=== PATIENT | female | born 1960 | race Caucasian/White ===

== ENCOUNTER 2016-11-20 11:57 | Emergency (ER) | payer OTHER ==
[~2016-11-20] VITALS: Ht 152.4 cm; Wt 93.9 kg
[~2016-11-20 11:57] MED LIST: OXYC7.5T65 PO; SULF800T23 PO
[2016-11-20 12:05] VITALS: Ht 152.4 cm; Wt 93.9 kg
[2016-11-20 12:59] LABS: BASO % 0.1 %; BASO ABS # 0.01 K/uL (0-0.2); COMPLETE YES; EOS % 1.6 %; HEMATOCRIT 42.5 % (37-47); IG% 0.3 %; LYMPH % 28.8 %; LYMPH ABS # 2.52 K/uL (1.2-3.4); MEAN CELL VOLUME 86.6 fL (80-100); MEAN CORPUSCULAR HGB CONC 35.8 g/dl (32-36); MEAN PLATELET VOLUME 10.1 fL (7.4-10.4); MONO % 8.1 %; NEUT % 61.1 %; PLATELET COUNT 191 K/uL (130-400); RED BLOOD COUNT 4.91 M/uL (4.2-5.4); WHITE BLOOD COUNT 8.76 K/uL (4.8-10.8)
[2016-11-20 13:07] LABS: BUN/CREATININE RATIO 17.5 (10-20); CALCIUM 9.2 mg/dl (8.5-10.1); CREATININE 0.96 mg/dl (0.60-1.20); POTASSIUM 3.8 mmol/L (3.5-5.1)
[2016-11-20] MEDS ORDERED: SODIUM CHLORIDE 0.9% 1000ML 1,000 ML IV STA ×2 (13:10)
[2016-11-20] MEDS ORDERED: ONDANSETRON INJ 2 MG/ML 2 ML VIAL IV STA (13:10)
--- NOTE | 2016-11-20 13:52 | DIAGNOSTIC IMAGING REPORT ---
PA CHEST WITH ABDOMINAL SERIES CLINICAL HISTORY: Diarrhea. Nausea and vomiting. FINDINGS: A PA chest radiograph is compared to study dated 09/05/2016. The examination is mildly degraded by apical lordotic positioning. The heart appears mildly enlarged and there is atherosclerotic calcification of the thoracic aorta. The pulmonary vasculature is noncongested. Chronic interstitial thickening is unchanged. No airspace consolidation, large pleural effusion, or pneumothorax is seen. The skeletal structures are osteopenic. Degenerative change is noted throughout the thoracic spine. Supine and erect abdominal radiograph are correlated with abdominal CT dated 12/16/2015. The examination is degraded by large body habitus. There is a nonobstructed abdominal bowel gas pattern. No evidence of intraperitoneal free air is seen. There is a 2.5 cm ovoid foreign body projecting over the sacrum. This is of indeterminant etiology and significance. The patient's known right renal calculi seen by CT are not visualized radiographically. Atherosclerotic calcification is noted in the abdominal aorta. There is lumbosacral spondylosis with postoperative change/bone grafting seen in the lower lumbar spine. The bony pelvis appears intact. IMPRESSION: 1. Mild cardiac enlargement. There is no acute cardiopulmonary abnormality. 2. Nonobstructed abdominal bowel gas pattern. 3. A 2.5 cm ovoid radiodense foreign body projects over the sacrum. This is of indeterminate etiology and significance, and may represent a foreign body ingestion. Clinical correlation will be required. Electronically signed by: Abraham Marquez M.D. 11/20/2016 1:51 PM
[2016-11-20 14:51] LABS: MANUAL MICROSCOPIC REQUIRED? NO; REVIEW REQ? NO; URINE APPEARANCE CLEAR (CLEAR); URINE BILIRUBIN NEG (NEG); URINE COLOR YELLOW; URINE NITRITE NEG (NEG); UROBILINOGEN NEG (NEG); ZZUR CULT IF INDIC CLEAN CATCH NO
[2016-11-20] MEDS ORDERED: METRONIDAZOLE 250 MG TAB PO STA (15:11)
[2016-11-20] MEDS ORDERED: METR-163 PO (15:24)
[2016-11-20] MEDS ORDERED: SACC250C PO (15:27)
--- NOTE | 2016-11-20 15:28 | EMERGENCY ROOM VISIT NOTE ---
History First contact with patient: 12:58 Chief Complaint: DIARRHEA Stated Complaint: DIARRHEA,DEHYDRATION Nursing Triage Summary: pt c/o diarrhea nd vomiting for 8 days . spoke with pcp on sunday told to come to ed if not better. History of Present Illness Patient is a 56-year-old white female who presents the emergency department for evaluation of diarrhea 8 days. She states that her symptoms started on the . She reports multiple episodes of loose, watery bowel movements, and vomited a few times that day as well. She has had persistent diarrhea since. She has only had a few episodes of vomiting since the initial onset. She feels very bloated and gassy and has a lot of rumbling in her stomach. Her abdomen does not really hurt however. She has cramps when she has to have a bowel movement, but these pass after defecating. She reports anywhere between 6 and 8 loose, watery bowel movements per day. She has not had a fever. She has a history of kidney stones and recently had surgery. She had been on antibiotics for her kidney stone issues and procedures in September. She denies any dysuria , frequency or urgency, but is passing clots secondary to the stone. She's never had a colonoscopy. She denies a history of diverticulitis or diverticulosis. No history of colitis. She is not aware of any sick contacts. There are multiple people who had eaten the same foods as her and who are not ill. She hasn't not travel outside the country recently. She has municipal water as a source at home. She has tried Pepto-Bismol and Imodium for her symptoms without relief. Review of Systems Review of systems as per HPI. All other systems reviewed were negative. 10 systems reviewed. Past Medical/Surgical History Medical Problems: (1) Calculus Of Kidney (2) Essential (Primary) Hypertension (3) Pure Hypercholesterolemia, Unspecified (4) Type 2 Diabetes Mellitus Without Complications Surgical Problems: (1) H/O section (2) History of back surgery (3) History of cystoscopy Electronic medical records are reviewed and summarized as above/below. See Problem List. Social History Smoking Status: Current Every Day Smoker Housing Status: lives with family Current/Historical Medications Scheduled Aspirin (Aspirin), 81 MG PO QAM Atorvastatin (Lipitor), 10 MG PO Q2D Citalopram (Citalopram Hydrobromide), 1 TAB PO QAM Clopidogrel Bisulfate (Plavix), 75 MG PO QAM Gabapentin (Neurontin), 300 MG PO BID Glipizide (Glipizide Er), 1 TAB PO QAM Isosorbide Mononitrate Ext Rel (Imdur Ext Rel), 60 MG PO BID Losartan Potassium (Cozaar), 25 MG PO QAM Metformin Hcl (Glucophage), 500 MG PO DINNER Metoprolol Tartrate (Lopressor) (Lopressor), 100 MG PO QAM Metoprolol Tartrate (Lopressor) (Lopressor), 50 MG PO DINNER Metronidazole (Flagyl), 500 MG PO TID Nitroglycerin (Nitrostat), 0.4 MG UT PRN Potassium Chloride (Micro-K Ext Rel), 10 MEQ PO QAM Saccharomyces Boulardii (Florastor), 2 CAP PO BID Scheduled PRN Oxycodone/Acetaminophen 7.5MG/325MG (Percocet 7.5MG/325MG), 1 TAB PO QID PRN for Pain Allergies Coded Allergies: Amlodipine (Unverified Allergy, Unknown, UNKNOWN REACTION, 09/21/16) PER RECORDS Niacin (Unverified Allergy, Unknown, UNKNOWN REACTION, 09/21/16) PER RECORDS Physical Exam Vital Signs Date Time Temp Pulse Resp B/P Pulse Ox O2 Delivery O2 Flow Rate FiO2 11/20/16 15:44 36.7 67 20 133/80 98 11/20/16 15:42 67 20 133/80 98 Room Air 11/20/16 14:40 67 20 136/80 97 Room Air 11/20/16 14:11 69 20 135/81 97 Room Air 11/20/16 12:05 36.7 69 20 147/86 97 Room Air Physical Exam CONSTITUTIONAL: Patient is an obese 56-year-old white female who was awake and alert and in no acute distress. Her vital signs are stable. EYES: Pupils equal, round, reactive to light and accommodation. EOMs intact without nystagmus. Sclera are anicteric. ENT: Tympanic membranes intact, with normal landmarks. External canals are clear. Oral and nasopharynx are clear. Mucous membranes are moist, no lesions , tongue and gums appear normal. NECK: No bruits auscultated. Supple without lymphadenopathy. No thyromegaly. No meningeal signs. Full active range of motion without discomfort. CARDIOVASCULAR: Regular rate and rhythm, with normal S1 and S2, no murmur or gallop or rub is heard. No carotid bruits auscultated. No JVD. Peripheral pulses easy to palpable. RESPIRATORY: Breath sounds equal and clear to auscultation without wheezes, rales, or rhonchi heard. Full and equal chest expansion without accessory muscle use or retractions. GI: Bowel sounds are present. Well-healed surgical scars are noted. Abdomen is soft obese, nontender and nondistended. No guarding, rebound or rigidity. MUSCULOSKELETAL: Full range of motion of extremities x 4 with good strength. No cyanosis, edema, joint tenderness or swelling. No deformity. INTEGUMENTARY: No lesions or rash, normal skin turgor. NEUROLOGICAL: Alert, oriented, and cooperative. Cranial nerves, sensation and strength grossly intact. Pupils round, equal, and react to light, EOMs are full. LYMPH: No lymphadenopathy. Medical Decision & Procedures ER Provider Diagnostic Interpretation: PA CHEST WITH ABDOMINAL SERIES CLINICAL HISTORY: Diarrhea. Nausea and vomiting. FINDINGS: A PA chest radiograph is compared to study dated 09/05/2016. The examination is mildly degraded by apical lordotic positioning. The heart appears mildly enlarged and there is atherosclerotic calcification of the thoracic aorta. The pulmonary vasculature is noncongested. Chronic interstitial thickening is unchanged. No airspace consolidation, large pleural effusion, or pneumothorax is seen. The skeletal structures are osteopenic. Degenerative change is noted throughout the thoracic spine. Supine and erect abdominal radiograph are correlated with abdominal CT dated 12/16/2015. The examination is degraded by large body habitus. There is a nonobstructed abdominal bowel gas pattern. No evidence of intraperitoneal free air is seen. There is a 2.5 cm ovoid foreign body projecting over the sacrum. This is of indeterminant etiology and significance. The patient's known right renal calculi seen by CT are not visualized radiographically. Atherosclerotic calcification is noted in the abdominal aorta. There is lumbosacral spondylosis with postoperative change/bone grafting seen in the lower lumbar spine. The bony pelvis appears intact. IMPRESSION: 1. Mild cardiac enlargement. There is no acute cardiopulmonary abnormality. 2. Nonobstructed abdominal bowel gas pattern. 3. A 2.5 cm ovoid radiodense foreign body projects over the sacrum. This is of indeterminate etiology and significance, and may represent a foreign body ingestion. Clinical correlation will be required. Laboratory Results 11/20/16 12:37 Red Blood Count 4.91, Mean Corpuscular Volume 86.6, Mean Corpuscular Hemoglobin 31.0, Mean Corpuscular Hemoglobin Concent 35.8, Mean Platelet Volume 10.1, Neutrophils (%) (Auto) 61.1, Lymphocytes (%) (Auto) 28.8, Monocytes (%) (Auto) 8.1, Eosinophils (%) (Auto) 1.6, Basophils (%) (Auto) 0.1, Neutrophils # (Auto) 5.35, Lymphocytes # (Auto) 2.52, Monocytes # (Auto) 0.71, Eosinophils # (Auto) 0.14, Basophils # (Auto) 0.01 11/20/16 12:37 Test 11/20/16 12:37 11/20/16 14:30 White Blood Count 8.76 K/uL (4.8-10.8) Red Blood Count 4.91 M/uL (4.2-5.4) Hemoglobin 15.2 g/dL (12.0-16.0) Hematocrit 42.5 % (37-47) Mean Corpuscular Volume 86.6 fL (80-100) Mean Corpuscular Hemoglobin 31.0 pg (25-34) Mean Corpuscular Hemoglobin Concent 35.8 g/dl (32-36) Platelet Count 191 K/uL (130-400) Mean Platelet Volume 10.1 fL (7.4-10.4) Neutrophils (%) (Auto) 61.1 % Lymphocytes (%) (Auto) 28.8 % Monocytes (%) (Auto) 8.1 % Eosinophils (%) (Auto) 1.6 % Basophils (%) (Auto) 0.1 % Neutrophils # (Auto) 5.35 K/uL (1.4-6.5) Lymphocytes # (Auto) 2.52 K/uL (1.2-3.4) Monocytes # (Auto) 0.71 K/uL (0.11-0.59) Eosinophils # (Auto) 0.14 K/uL (0-0.5) Basophils # (Auto) 0.01 K/uL (0-0.2) RDW Standard Deviation 43.7 fL (36.4-46.3) RDW Coefficient of Variation 13.8 % (11.5-14.5) Immature Granulocyte % (Auto) 0.3 % Immature Granulocyte # (Auto) 0.03 K/uL (0.00-0.02) Anion Gap 9.0 mmol/L (3-11) Est Creatinine Clear Calc Drug Dose 65.4 ml/min Estimated GFR () 75.6 Estimated GFR (Non- 65.2 BUN/Creatinine Ratio 17.5 (10-20) Calcium Level 9.2 mg/dl (8.5-10.1) Total Bilirubin 0.3 mg/dl (0.2-1) Aspartate Amino Transf (AST/SGOT) 10 U/L (15-37) Alanine Aminotransferase (ALT/SGPT) 28 U/L (12-78) Alkaline Phosphatase 87 U/L (45-117) Total Protein 7.7 gm/dl (6.4-8.2) Albumin 3.8 gm/dl (3.4-5.0) Globulin 3.9 gm/dl (2.5-4.0) Albumin/Globulin Ratio 1.0 (0.9-2) Lipase 112 U/L (73-393) Urine Color YELLOW Urine Appearance CLEAR (CLEAR) Urine pH 5.0 (4.5-7.5) Urine Specific [place] 1.010 (1.000-1.030) Urine Protein NEG (NEG) Urine Glucose (UA) NEG (NEG) Urine Ketones NEG (NEG) Urine Occult Blood NEG (NEG) Urine Nitrite NEG (NEG) Urine Bilirubin NEG (NEG) Urine Urobilinogen NEG (NEG) Urine Leukocyte Esterase NEG (NEG) Date/Time Source Procedure Growth Status 11/20/16 13:30 Stool C.difficile Toxin B Gene (PCR) - Final Positive for C. difficile toxin B gene Complete Medications Administered Medications (Trade) Dose Ordered Sig/Ti Route Start Time Stop Time Status Last Admin Dose Admin Sodium Chloride 1,000 ml @ 999 mls/hr Q1H1M STAT IV 11/20/16 13:10 11/20/16 14:10 DC 11/20/16 13:31 999 MLS/HR Sodium Chloride (Nss 1000ml) 1,000 ml @ 250 mls/hr Q4H STAT IV 11/20/16 13:10 11/20/16 17:09 DC 11/20/16 13:32 250 MLS/HR Ondansetron HCl (Zofran Inj) 4 mg NOW STAT IV 11/20/16 13:10 11/20/16 13:16 DC 11/20/16 13:32 4 MG Metronidazole (Flagyl Tab) 500 mg NOW STAT PO 11/20/16 15:11 11/20/16 15:12 DC 11/20/16 15:33 500 MG ED Course The patient was seen and evaluated as above. Her old records were reviewed. IV access was obtained and she was hydrated with normal saline solution. She is medicated with Zofran for nausea. CBC, CMP and lipase were performed. She was able to give a stool sample which was Hemoccult negative. It was sent for culture and C. difficile. Acute abdominal series was obtained and was unremarkable. Laboratory studies did not reveal any leukocytosis, anemia, electrolytes or liver function abnormalities. Lipase was not elevated. Urinalysis was completely clear. Her stool was positive for C. difficile. Patient was reviewed with attending physician. She is medicated with metronidazole 500 mg orally. She'll be placed on oral metronidazole for the C. difficile colitis. She was instructed on close follow-up with her primary care physician for further care and management. She was educated on the worrisome signs or symptoms for which she should return to the emergency department. Her stool culture is pending. Differential diagnoses entertained included infectious versus inflammatory colitis, gastroenteritis, food borne illness, bowel obstruction, diverticulitis , perforation, abscess, among others. Medical Decision See ED Course. Impression Primary Impression: C. difficile diarrhea Departure Information Prescriptions Saccharomyces Boulardii (FLORASTOR) 250 Mg Cap 2 CAP PO BID, #60 CAP 2 Refills Prov: Deborah aCr PA 11/20/16 Metronidazole (Flagyl) 500 Mg Tab 500 MG PO TID, #42 TAB Prov: Deborah Car PA 11/20/16 Referrals Prieto Barrera PA-C (PCP) Patient Instructions A Signature Page, [facility] Additional Instructions Metronidazole(Flagyl) 500mg: Take one pill 3 daily for 14 days for your bowel infection. DO NOT drink alcohol or take alcohol containing products with this medication. Any medication can cause an allergic reaction, stop the pills immediately and return to the ER for rash, hives, breathing difficulties, or swelling. Florastor : 2 capsules twice daily. Ibuprofen(Motrin, Advil) may be used for fever or pain. Use 600mg every six hours as needed. Take with food. Avoid using more than 2400mg in a 24 hour period. Do not use 2400mg per day for more than three consecutive days without physician direction. Prolonged inappropriate use can lead to stomach upset or ulcers. This is available over the counter and typically comes in 200mg tablets. (AND/OR) Acetaminophen(Tylenol) may be used for fever or pain. Use 1000mg every eight hours as needed. Avoid using more than 3000mg in a 24 hour period. This is available over the counter. Read all the package inserts or medication information paperwork provided. If you have any questions or concerns call your primary provider, pharmacist or the ER for assistance. Rest and drink plenty of fluids as tolerated. Slow sips of water or sports drinks are recommended instead of large amounts all at once. Continue current medications. Once your stomach is settled start with a clear liquid diet (jello, soup broth, etc.) and then advance as tolerated. You should avoid full, heavy meals for about 24 hrs from the time your symptoms resolved. Return to the ER immediately for worsening or persistent abdominal pain, vomiting, fevers, chest pains, difficulty breathing, black or bloody stools, worsening of your condition, or as needed. Follow up with your primary physician in 2-3 days for a recheck of your current condition.
[2016-11-20 15:44] VITALS: BP 133/80; PULSE 67; TEMP 36.7; O2SAT 98
--- NOTE | 2016-11-20 20:04 | EMERGENCY ROOM VISIT NOTE ---
ED Visit Note First contact with patient: 12:58 I have personally evaluated this patient examined her and reviewed the pertinent labs and data. I have discussed the case with Niki Car, the physician zoning assistant and agree with the plan. Please refer to the PA note This patient comes in after having diarrhea and nausea. Her abdominal exam is benign and nontender. She was hydrated with IV normal saline and she is feeling better. Her workup was positive for C. difficile. We are going to treat her with Flagyl. She does not drink alcohol. I encouraged a follow-up follow-up with her regular doctor return to the ER if: Worsening of symptoms, not tolerating fluids, any new problems or concerns. She was happy with plan and discharged to home.
[2017-04-05] MEDS ORDERED: GLIP-197 PO (13:34)
[2017-04-05] MEDS ORDERED: ASPI-461 PO (13:34)
[2017-04-05] MEDS ORDERED: GABA-113 PO (13:34)
[2017-04-05] MEDS ORDERED: CITA40TA4 PO (13:34)
[2017-04-05] MEDS ORDERED: CLOP1TAB5 PO (13:34)
[2017-04-05] MEDS ORDERED: GLC/500 PO (13:34)
[2017-04-05] MEDS ORDERED: LOSA1TAB PO (13:34)
[2017-04-05] MEDS ORDERED: ISOS60TA25 PO (13:34)
[2017-04-05] MEDS ORDERED: ATOR10TA82 PO (13:34)
[2017-04-05] MEDS ORDERED: METO100T14 PO ×2 (13:34)
[2017-04-05] MEDS ORDERED: POTA10CA28 PO (13:34)
[2017-04-05] MEDS ORDERED: NTRGSL/4 UT (13:40)
== END 2016-11-20 15:44 | disposition home or self-care (01) ==
LOC: C.EDB 11:59 → C.EDC 15:44
DX: A04.7 Enterocolitis due to Clostridium difficile (principal); Z79.82 Long term (current) use of aspirin; Z79.899 Other long term (current) drug therapy; Z79.02 Long term (current) use of antithrombotics/antiplatelets; E11.9 Type 2 diabetes mellitus without complications; E78.00 Pure hypercholesterolemia, unspecified

== ENCOUNTER → 2016-11-29 | Outpatient (CLI) | payer OTHER ==
[~2016-11-29] MED LIST changes: +ASPI-461 PO; +ATOR10TA88 PO; +CITA40TA4 PO; +CLOP1TAB5 PO; +CYCL10TA6 PO; +GABA-113 PO; +GLC/500 PO; +GLIP-197 PO; +ISOS60TA25 PO; +LOSA1TAB PO; +METO100T14 PO; +METR-163 PO; +NTRGSL/4 UT; +POTA10CA28 PO; +SACC250C PO; -SULF800T23 PO; +[UNRECOGNIZED DRUG - REMARK] PO
--- NOTE | 2016-11-29 09:39 | DIAGNOSTIC IMAGING REPORT ---
ULTRASOUND KIDNEYS AND BLADDER CLINICAL HISTORY: Flank pain. COMPARISON STUDY: Abdominal MRI dated 08/18/2016. Abdominal radiographs dated 11/20/2016 TECHNIQUE: Real-time, grayscale, and color flow sonography of the kidneys and bladder is performed. Images are reviewed in the transverse and longitudinal planes. FINDINGS: Kidneys: The kidneys demonstrate cortical atrophy. The right kidney measures 11.2 x 4.3 x 4.4 cm and the left kidney measures 13.6 x 6.3 x 5.2 cm. There is no hydronephrosis. No shadowing renal calculi are identified. There is no sonographic evidence of contour deforming renal mass lesion. No perinephric fluid is identified. Bladder: The bladder is normal in appearance. Only a right ureteral jet was seen. Upper abdomen: The liver is enlarged and steatotic. IMPRESSION: 1. The kidneys demonstrate cortical atrophy and are without hydronephrosis. 2. The bladder was normal as visualized. 3. Hepatomegaly and hepatic steatosis. Electronically signed by: Abraham Marquez M.D. 11/29/2016 9:37 AM Dictated Date/Time: 11/29/2016 9:34 AM
== END | disposition home or self-care (01) ==
LOC: C.ULTR 09:07
PROVIDERS: ATTEND Urology
DX: R10.9 Unspecified abdominal pain (principal); N26.1 Atrophy of kidney (terminal); R16.0 Hepatomegaly, not elsewhere classified; K76.0 Fatty (change of) liver, not elsewhere classified; N39.0 Urinary tract infection, site not specified

== ENCOUNTER → 2016-11-29 | Outpatient (CLI) | payer OTHER | END | disposition home or self-care (01) | LOC: C.LABSPEC 17:40 | PROVIDERS: ATTEND Urology | DX: N39.0 Urinary tract infection, site not specified (principal) ==

== ENCOUNTER → 2017-02-26 | Outpatient (CLI) | payer OTHER ==
[2017-02-13 13:24] LABS: BLOOD UREA NITROGEN 13 mg/dl (7-18); BUN/CREATININE RATIO 14.2 (10-20)
[~2017-02-26] MED LIST changes: +ATOR10TA82 PO; -ATOR10TA88 PO; +OPTIRAY 320 IV PRN
--- NOTE | 2017-02-26 16:33 | DIAGNOSTIC IMAGING REPORT ---
CT OF THE ABDOMEN AND PELVIS WITH AND WITHOUT CONTRAST HEMATURIA PROTOCOL CLINICAL HISTORY: Nephrolithiasis. Bilateral flank pain. Right renal filling defects. Left adrenal mass. COMPARISON STUDY: CT of the abdomen and pelvis August 03, 2016, MRI of the abdomen August 18, 2016 and renal ultrasound November 29, 2016. TECHNIQUE: Unenhanced and split bolus phase imaging of the abdomen and pelvis was performed. Injection 119 cc Optiray [address] DOSE: 2223.39 mGy.cm FINDINGS: A 3.2 cm left adrenal nodule measures near water attenuation. This is unchanged since prior exams. This is consistent with an adenoma. No ureteral calculi are present. Note is made of a 5 mm calculus within lower pole of the right kidney. Mild right perinephric infiltration is noted. This is diminished since the prior CT of August 03, 2016. There is mild dilatation of the right renal pelvis which is improved since prior exams. There is no padmini hydronephrosis. There is diffuse urothelial thickening of the right collecting system and renal pelvis. This was present on prior MRI of August 18, 2016. Note is also made of a 5 mm filling defect within an upper pole calyx within the right kidney. The extent of filling defects is diminished since IVP of August 18, 2016. No bladder lesion is identified although the nondependent aspect of the bladder is unopacified. There is fatty infiltration of the liver. No hepatic lesions are present. There is a gallstone within the gallbladder. Postsurgical findings within the spine are noted. The spleen, right adrenal gland and pancreas are unremarkable. There are no solid renal lesions. There is no evidence for bowel obstruction. There is no lymphadenopathy. The appendix is normal. IMPRESSION: 1. 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 2. 5 mm right renal calculus. No ureteral calculi. 3. Diffuse urothelial thickening of the right collecting system and renal pelvis which was present on MRI of August 18, 2016. This remains nonspecific and could reflect an infectious process or the residua from prior process. A neoplastic process could appear similar although is considered somewhat less likely. A short-term follow-up hematuria protocol in 6 months is recommended. The findings could also be correlated with urine cytology and urinalysis. 4. 5 mm filling defect within an upper pole calyx of the right kidney. This could reflect blood clot, sloughed papilla or a mass. This should be assessed on subsequent exam. The extent of filling defects is significantly diminished from IVP of August 18, 2016. Electronically signed by: Kevan Waldrop M.D. 02/26/2017 4:31 PM Dictated Date/Time: 02/26/2017 11:05 AM
== END | disposition home or self-care (01) ==
LOC: C.CTS 10:21
PROVIDERS: ATTEND Urology
DX: R10.9 Unspecified abdominal pain (principal); N13.30 Unspecified hydronephrosis; R93.429 Abnormal radiologic findings on diagnostic imaging of unspecified kidney; N20.0 Calculus of kidney; E27.9 Disorder of adrenal gland, unspecified

== ENCOUNTER → 2017-02-28 | Outpatient (CLI) | payer OTHER ==
[~2017-02-28] MED LIST changes: -OPTIRAY 320 IV PRN
[2017-02-28 12:39] LABS: BLOOD UREA NITROGEN 16 mg/dl (7-18); BUN/CREATININE RATIO 17.8 (10-20); CREATININE 0.91 mg/dl (0.60-1.20)
== END | disposition home or self-care (01) ==
LOC: C.LABPBG 10:00
PROVIDERS: ATTEND Physician Assistant Medical
DX: N20.0 Calculus of kidney (principal)

== ENCOUNTER → 2017-03-07 | Outpatient (CLI) | payer OTHER | END | disposition home or self-care (01) | LOC: C.LABPBG 13:59 | PROVIDERS: ATTEND Physician Assistant Medical | DX: Z13.89 Encounter for screening for other disorder (principal) ==

== ENCOUNTER → 2017-03-22 | Outpatient (CLI) | payer OTHER ==
--- NOTE | 2017-03-26 14:25 | MAMMOGRAPHY REPORT ---
BILATERAL DIGITAL SCREENING MAMMOGRAM WITH CAD: 03/22/2017 CLINICAL HISTORY: Routine screening. Patient has no complaints. TECHNIQUE: Bilateral CC and MLO views were obtained. Current study was also evaluated with a [employer] er Aided Detection (CAD) system. [facility] dated 10/23/2008. BREAST COMPOSITION: There are scattered areas of fibroglandular density in both breasts. FINDINGS: There are benign-appearing calcifications in the left breast. No new suspicious mass, arc hitectural distortion or cluster of microcalcifications is seen. IMPRESSION: ACR BI-RADS CATEGORY 1: NEGATIVE There is no mammographic evidence of malignancy. A 1 year screening mammogram is recommended. The p atient will receive written notification of the results. Approximately 10% of breast cancers are not detected with mammography. A negative mammographic repor t should not delay biopsy if a clinically suggestive mass is present. Angie Hopkins M.D. ay/:03/26/2017 13:24:59 Cardiac Catheterization Technologist: Sherine BARLOW(R)(M), [facility] letter sent: Normal 1/2 BI-RADS Code: ACR BI-RADS Category 1: Negative
== END | disposition home or self-care (01) ==
LOC: C.MAMM 11:45
PROVIDERS: ATTEND Physician Assistant Medical
DX: Z12.31 Encounter for screening mammogram for malignant neoplasm of breast (principal)

== ENCOUNTER 2017-04-05 18:17 | Emergency (ER) | payer OTHER ==
[~2017-04-05 18:17] MED LIST changes: -CYCL10TA6 PO; -[UNRECOGNIZED DRUG - REMARK] PO
[2017-04-05 18:27] VITALS: TEMP 36.7; Ht 162.6 cm
[2017-04-05] MEDS ORDERED: CYCLOBENZAPRINE HCL 10 MG TAB PO STA (18:51)
[2017-04-05] MEDS ORDERED: KETOROLAC TROMETHAMINE 60 MG/2 ML VIAL IM STA (18:51)
--- NOTE | 2017-04-05 18:54 | EMERGENCY ROOM VISIT NOTE ---
History Report prepared by Kurt: Ana Hayes Under the Supervision of: Dr. Nadira Green D.O. First contact with patient: 18:32 Chief Complaint: BACK PAIN Stated Complaint: STABBING BACK PAIN History of Present Illness The patient is a 56 year old female who presents to the Emergency Room with complaints of intermittent left sided back pain beginning 2 weeks prior to arrival. The patient describes the pain as a stabbing pain. She notes that pain is when she goes to stand up from a sitting position. The patient 2 weeks ago was picking up a brick when the pain first began. She states that nothing brings on the pain or ends the pain, it spontaneously occurs. The patient was gardening today when the pain began and has not subsided since. She notes a history of back surgery and has a broken screw that is by her sciatic nerve that causes a chronic burning sensation in her buttock and down her leg. This pain is worsening the burning sensation. The patient has been taking Gabapentin twice a day which is for her chronic back pain. She denies weakness or numbness in her feet. The patient has been experiencing kidney stones lately. 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 Review of Systems See HPI for pertinent positives & negatives. A total of 10 systems reviewed and were otherwise negative. Past Medical & Surgical Medical Problems: (1) Calculus Of Kidney (2) Essential (Primary) Hypertension (3) Pure Hypercholesterolemia, Unspecified (4) Type 2 Diabetes Mellitus Without Complications Surgical Problems: (1) H/O section (2) History of back surgery (3) History of cystoscopy Family History Cancer Diabetes mellitus Heart disease Hypertension Kidney disease Kidney stones Lung disease Social History Smoking Status: Current Every Day Smoker Alcohol Use: none Housing Status: lives with family Occupation Status: unemployed Current/Historical Medications Scheduled Aspirin (Aspirin), 81 MG PO QAM Atorvastatin (Lipitor), 10 MG PO DAILY Citalopram (Citalopram Hydrobromide), 1 TAB PO QAM Clopidogrel Bisulfate (Plavix), 75 MG PO QAM Cyclobenzaprine Hcl (Flexeril), 10 MG PO TID Gabapentin (Neurontin), 300 MG PO BID Glipizide (Glipizide Er), 1 TAB PO QAM Isosorbide Mononitrate Ext Rel (Imdur Ext Rel), 60 MG PO BID Losartan Potassium (Cozaar), 25 MG PO QAM Metformin Hcl (Glucophage), 1,000 MG PO DINNER Metoprolol Tartrate (Lopressor) (Lopressor), 100 MG PO QAM Metoprolol Tartrate (Lopressor) (Lopressor), 50 MG PO DINNER Nitroglycerin (Nitrostat), 0.4 MG UT PRN Potassium Chloride (Micro-K Ext Rel), 10 MEQ PO QAM [Thyriod Med], 1 TAB PO DAILY Allergies Coded Allergies: Amlodipine (Unverified Allergy, Unknown, UNKNOWN REACTION, 09/21/16) PER RECORDS Niacin (Unverified Allergy, Unknown, UNKNOWN REACTION, 09/21/16) PER RECORDS Physical Exam Vital Signs Date Time Temp Pulse Resp B/P Pulse Ox O2 Delivery O2 Flow Rate FiO2 04/05/17 20:40 60 18 136/65 94 04/05/17 18:27 36.7 72 20 141/72 96 Room Air Physical Exam HEENT: Head - normocephalic and atraumatic Pupils are equal, round, and reactive to light. Extraocular eye muscles are intact, and sclera are anicteric. Nose - moist nasal mucosa without discharge. Mouth - moist buccal mucosa. Oropharynx is nonerythematous and there is no tonsillar exudate or edema noted. Neck: Supple; no JVD, nuchal rigidity, cervical lymphadenopathy. Heart: Regular rate and rhythm. There is a normal S1 and S2 with no murmurs, clicks, or gallops appreciated. Lungs: Diminished and rhonchi bilateral bases. Abdomen: Soft, completely nontender, nondistended, with good bowel sounds. There are no palpable pulsatile masses or hepatosplenomegaly. There is no guarding, rigidity, or rebound noted. Back: Midline surgical incision that is well-healed. No pain over midline. Significant muscle spasm over left flank, pain to left flank, no skin change. Significant tenderness over her piriformis muscle. Extremities: No evidence of cyanosis, clubbing, or edema. There are easily palpable peripheral pulses. Skin: warm and dry with good turgor and no rashes. Medical Decision & Procedures Medications Administered Medications (Trade) Dose Ordered Sig/Ti Route Start Time Stop Time Status Last Admin Dose Admin Ketorolac Tromethamine (Toradol Inj) 60 mg NOW STAT IM 04/05/17 18:51 04/05/17 18:54 DC 04/05/17 19:03 60 MG Cyclobenzaprine HCl (Flexeril Tab) 10 mg NOW STAT PO 04/05/17 18:51 04/05/17 18:54 DC 04/05/17 19:02 10 MG Cyclobenzaprine HCl (FLEXERIL 10MG Home Pack) 1 homepack UD ONCE PO 04/05/17 20:30 04/05/17 20:31 DC 04/05/17 20:37 1 HOMEPACK Procedure Flexeril Tab 10 mg PO, Toradol Inj 60 mg IM, Flexeril 10 mg Home Pack 1 homepack PO. ED Course 1840: Past medical records reviewed. The patient was evaluated in room C12. A complete history and physical exam was performed. 1850: Flexeril Tab 10 mg PO, Toradol Inj 60 mg IM. 2006: I reevaluated the patient and she is feeling significantly better. 2019: Upon reevaluation, hemodynamically stable. I discussed findings and results with her. She verbalized agreement of the treatment plan. She was discharged home. 2030: Flexeril 10 mg Home Pack 1 homepack PO. Medical Decision The patient is a 56 year old female who presents to the ED with back pain. Differential diagnosis includes ureteral colic, low back strain, sciatica, lumbar disc herniation. The patient had no blood in her urine. The patient's episodes of pain clearly happened with movement or lifting. Her symptoms seemed to to be acutely musculoskeletal. She was given Flexeril and Toradol with significant relief of her symptoms. The patient will use Tylenol at home along with described Flexeril for muscle spasm. She was told to return to the emergency department if she had worsening symptoms. Impression Primary Impression: Left flank pain Scribe Attestation The scribe's documentation has been prepared under my direction and personally reviewed by me in its entirety. I confirm that the note above accurately reflects all work, treatment, procedures, and medical decision making performed by me. Departure Information Dispostion Home / Self-Care Prescriptions Cyclobenzaprine Hcl (FLEXERIL) 10 Mg Tab 10 MG PO TID, #21 TAB Prov: Nadira Green D.O. 04/05/17 Referrals Prieto Barrera PA-C (PCP) Forms HOME CARE DOCUMENTATION FORM, IMPORTANT VISIT INFORMATION Patient Instructions Low Back Pain Self Care, Muscle Spasm, My [facility] Additional Instructions Rest. Very limited strenuous activity over the next 3-5 days tylenol - 1 gram every 8 hours for pain Flexeril - 1 tab every 8 hours for muscle spasm
[2017-04-05] MEDS ORDERED: [UNRECOGNIZED DRUG - REMARK] PO (19:24)
[2017-04-05] MEDS ORDERED: CYCL10TA6 PO (20:24)
[2017-04-05] MEDS ORDERED: FLEXERIL HOME PACK 10 MG VIAL PO ONE (20:30)
[2017-04-05 20:40] VITALS: BP 136/65; PULSE 60; O2SAT 94
== END 2017-04-05 20:41 | disposition home or self-care (01) ==
LOC: C.EDB 18:18 → C.EDC 20:41
DX: M54.5 Low back pain (principal); G89.29 Other chronic pain; Z79.899 Other long term (current) drug therapy; Z87.442 Personal history of urinary calculi; I10 Essential (primary) hypertension; E78.00 Pure hypercholesterolemia, unspecified; E11.9 Type 2 diabetes mellitus without complications; Z80.9 Family history of malignant neoplasm, unspecified; Z83.3 Family history of diabetes mellitus; Z82.49 Family history of ischemic heart disease and other diseases of the circulatory system; Z84.1 Family history of disorders of kidney and ureter; F17.210 Nicotine dependence, cigarettes, uncomplicated; Z79.82 Long term (current) use of aspirin

== ENCOUNTER → 2017-04-06 | Outpatient (CLI) | payer OTHER ==
[~2017-04-06] MED LIST changes: +CYCL10TA6 PO; -METR-163 PO; -OXYC7.5T65 PO; -SACC250C PO; +[UNRECOGNIZED DRUG - REMARK] PO
== END | disposition home or self-care (01) ==
LOC: C.LABSPEC 14:50
PROVIDERS: ATTEND Urology
DX: N39.0 Urinary tract infection, site not specified (principal)

== ENCOUNTER → 2017-06-11 | Outpatient (CLI) | payer OTHER ==
[~2017-06-11] MED LIST changes: -ATOR10TA82 PO; +ATOR10TA88 PO; -CYCL10TA6 PO
[2017-06-11 14:50] LABS: HEMATOCRIT 40.2 % (37-47); MEAN CELL VOLUME 88.4 fL (80-100); MEAN CORPUSCULAR HEMOGLOBIN 30.8 pg (25-34); MEAN CORPUSCULAR HGB CONC 34.8 g/dl (32-36); PLATELET COUNT 199 K/uL (130-400); RED BLOOD COUNT 4.55 M/uL (4.2-5.4); WHITE BLOOD COUNT 8.01 K/uL (4.8-10.8)
[2017-06-11 14:57] LABS: PROTHROMBIN TIME (PATIENT) 10.3 SECONDS (9.0-12.0)
[2017-06-11 15:01] LABS: BLOOD UREA NITROGEN 10 mg/dl (7-18); BUN/CREATININE RATIO 10.8 (10-20); CALCIUM 9.8 mg/dl (8.5-10.1); CARBON DIOXIDE 24 mmol/L (21-32); CHLORIDE 107 mmol/L (98-107); GLUCOSE 89 mg/dl (70-99); SODIUM 140 mmol/L (136-145)
== END | disposition home or self-care (01) ==
LOC: C.LAB1850 13:07
PROVIDERS: ATTEND Internal Medicine Interventional Cardiology
DX: I20.0 Unstable angina (principal)

== ENCOUNTER → 2017-06-15 | Day surgery (SDC) | payer OTHER ==
[~2017-06-15] VITALS: Ht 152.4 cm; Wt 98.5 kg
[~2017-06-15] MED LIST changes: +FENTANYL CITRATE INJ 50 MCG/1 ML 2 ML VIAL ONE; +HEPARIN SOD (PORCINE) 1000 UNIT/ML 10 ML VIAL ONE; +MIDAZOLAM HCL 1 MG/ML 2ML VIAL ONE; +NITROGLYCERIN/D5W 100MCG/ML 20ML SYR ONE; +NiCARDipine HCL INJ 2.5 MG/ML 10 ML AMP ONE
[2017-06-15 07:53] VITALS: Ht 152.4 cm; Wt 98.5 kg
--- NOTE | 2017-06-15 08:34 | History & Physical Bridge Note ---
H&P Re-Evaluation Bridge Note: I have examined the patient, reviewed the History & Physical and in the interval since the performance of the History & Physical I have noted the following changes of clinical significance: No changes noted
--- NOTE | 2017-06-15 08:37 | Procedure Note ---
Pre-Mod Sedation Assessment General Date of Moderate Sedation: Jun 15, 2017. Review Cardiovascular: regular rate, rhythm, no gallop Abdomen: normal bowel sounds, non tender Lungs: chest non-tender, lungs clear Pre-Sedation Airway Assessment Oral Cavity: Dental Abnormalities Able to Visualize Vocal Cords: No Short Thick Neck: No Hx of Sleep Apnea: No Smoking Status: Current Every Day Smoker Mallampati Classification: Class III ASA Classification: Class III Procedure Planning Contraindications-for Mod Sed: None Yes Notes The planned sedation has been discussed with the patient and consent obtained. I have identified the patient, determined the appropriateness of sedation and have assessed the patient immediately prior to the procedure. All medicine(s) and interventions are by my order.
--- NOTE | 2017-06-15 09:55 | Procedure Note ---
Post-Mod Sedation Assessment General Date of Moderate Sedation Jun 15, 2017. Review - Discharge Criteria Vital Signs Stable: Yes Alert/Oriented/Conversant: Yes Returned to Baseline Mental St: Yes Nausea Absent/Minimal: Yes Pain/Discomfort/Absent/Minimal: Yes Normal/Baseline Respirations: Yes Active Bleeding?: No Pt Received D/C Instructions: N/A Prescriptions Given: None Specific Proced. D/C Criteria Distal Pulses Present (Cardiac: Yes Groin site assessed-Card Cath: N/A Voided Prior To Discharge: N/A Discharged Patients Adult Escort/Transportation: Yes
--- NOTE | 2017-06-15 10:11 | Cardiac Catheterization ---
Procedure Note Procedure Date Jun 15, 2017. Pre-Procedure Diagnosis Angina AUC Score 7 Post-Procedure Diagnosis Severe CAD, Normal Intracardiac Pressures Procedure(s) Performed Coronary Angiography, Left Heart Cath [employer] Laboratory Technician(s) Wilmar Estimated Blood Loss 15 Medication(s) Fentanyl, Heparin, Nitroglycerin, Versed, Lidocaine 1% Summary of Findings Indication: Unstable angina Access: 6Fr Slender Right Radial Artery Catheters: Munday Findings: LM - Luminal irregularities LAD - Large caliber vessel, tortuous, moderately calcified, 30% early-mid LAD before take-off of 1st diagonal; 40% distal LAD stenosis; Left to right collaterals to PDA/PLBs Circumflex - Moderate caliber vessel, mildly calcified, 30% diffuse disease in mid segment. RCA - Occluded at ostium. Prior stents from ostium to distal vessel. PDA, PLBs fill via left to right collaterals LVEDP - 15 Arterial Closure: TR Band Summary: 1. Severe single vessel coronary artery disease - BACK TENDER CYLINDER of previously stented RCA at ostium. Distal branch vessels fill via left to right collaterals - Mild to moderate non-obstructive left system disease 2. Normal intracardiac filling pressure Recommendations: Continued ASCVD risk factor modification including smoking cessation Continue current anti-anginals. Increase imdur to 120 mg in AM and continue 60 mg in evening. 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 Teacher Holding/Recovery [facility] Data Cardiac Status Clinical evaluation leading to the procedure CAD Presntation: Unstable angina Anginal Classification: CCS III Heart Failure: No, NYHA Class: CCS I Cardiogenic Shock w/in 24Hrs: No Cardiac Arrest w/in 24Hrs: No Imaging studies past 6 months: No Stress studies past 6 months: No Coronary Anatomy Dominant: Right Left Main (% Stenosis): Normal LAD (% Stenosis): Mid (30), Distal (40) Circumflex (% Stenosis): Mid (30) RCA (% Stenosis): Ostial (100) Diagnostic Physician's Name: Star Robbins MD Status: Elective Closure Device Percutaneous Entry Location: Radial Closure Device: Radial Band Recommendations: Medical therapy and/or Counseling Intraprocedure Events Significant Dissection: No Perforation: No
--- NOTE | 2017-06-15 10:15 | Discharge Instructions ---
Discharge Instructions Procedure Procedure Date: Jun 15, 2017. Reason for Visit: Cad,*Dr Robbins To Do*. Discharge Discharge Date: Jun 15, 2017. Discharge Diagnosis: CAD Last Recorded Wt (Kilograms): 98.5 Medications Stopped Medication(s): Hold Metformin for 48 hours Anesthesia Post Anesthesia Instructions: If you have had IV Sedation: * Do not drive today. * Resume driving when surgeon permits. * Do not make important decisions or sign legal documents today. * Call surgeon for: 1. Temperature elevations greater than 101 degrees F. 2. Uncontrollable pain. 3. Excessive bleeding. 4. Persistent nausea and vomiting. 5. Medication intolerance (nausea, vomiting or rash). * For nausea and vomiting use only clear liquids such as: tea, soda, bouillon until nausea subsides, then gradually increase diet as tolerated. * If you have any concerns or questions, call your surgeon's office. If physician is unavailable and it is an emergency, call 911 or go to the nearest emergency room. Instructions Activity Recommendations: limitations as noted below Recommended Home Diet: resume previous diet Allergies: Coded Allergies: Amlodipine (Unverified Allergy, Unknown, UNKNOWN REACTION, 09/21/16) PER RECORDS Niacin (Unverified Allergy, Unknown, UNKNOWN REACTION, 09/21/16) PER RECORDS Follow Up Additional Instructions: ACTIVITY RECOMMENDATIONS: It is common to feel weak and fatigue for a few days. * Do not drive or operate any motorized equipment for the next three days. * Limit stair usage (2 or 3 trips a day only) for the next 2 days. * Do not lift anything heavier than 10 pounds for the next 2 days. * Do not engage in vigorous exercise or any sports for the next five days. * You may shower the day after your procedure, but do not immerse the area for three days. Cleanse the site gently with soap and water. SPECIAL CARE INSTRUCTIONS: * You may replace the pressure dressing or band-aid the morning after the procedure. * After your procedure, it is normal to have a small bruise or small lump at the site. Examine your site daily for any change in the bruise or lump, redness, swelling, drainage or numbness. Notify your doctor if any change. BLEEDING: * If there is a small amount of bleeding at the site, lie down and apply firm pressure with a clean cloth for ten minutes. When the bleeding stops, lie quietly keeping the procedure limb straight for six hours. Notify your doctor as soon as possible. * If the bleeding does not stop after ten minutes or if there is a large amount of bleeding or spurting, call 911 immediately. Continue to lie down and hold firm pressure until help arrives. SKIN IRRITATION: * You may experience some redness and/or swelling in the area where radiation was administered. If any skin irritation occurs, please contact your family physician. FOLLOW UP VISIT: Keep any scheduled doctor appointments. Follow-up with: Dr. Robbins in 1 month [facility] Recommendations: Call your doctor if: * Temperature above 101 degrees * Pain not relieved by pain medicine ordered * There is increased drainage or redness from any incision * You have any unanswered questions or concerns. Your Doctors Instructions noted above were prepared by provider Rufus Robbins. Patient Signature Section: Patient Instructions Signature Page Tati Burch Patient (or Guardian) Signature/Date: I have read and understand the instructions given to me by my caregivers. Caregiver/RN/Doctor Signature/Date: The above-named patient and/or guardian has received patient instructions on this date. + Original Patient Signature Page (only) stays with chart. Please make copy for patient.
[2017-06-15 12:10] VITALS: BP 122/52; PULSE 60; O2SAT 94
== END | disposition home or self-care (01) ==
LOC: C.CATH 07:03
PROVIDERS: ATTEND Internal Medicine Interventional Cardiology
DX: I25.110 Atherosclerotic heart disease of native coronary artery with unstable angina pectoris (principal); I10 Essential (primary) hypertension; E78.00 Pure hypercholesterolemia, unspecified; E11.9 Type 2 diabetes mellitus without complications; I73.9 Peripheral vascular disease, unspecified; F17.200 Nicotine dependence, unspecified, uncomplicated; Z83.3 Family history of diabetes mellitus; Z82.49 Family history of ischemic heart disease and other diseases of the circulatory system; Z84.1 Family history of disorders of kidney and ureter

== ENCOUNTER → 2017-10-02 | Outpatient (CLI) | payer OTHER ==
[~2017-10-02] MED LIST changes: +ATOR10TA82 PO; -ATOR10TA88 PO; -FENTANYL CITRATE INJ 50 MCG/1 ML 2 ML VIAL ONE; -GLC/500 PO; -HEPARIN SOD (PORCINE) 1000 UNIT/ML 10 ML VIAL ONE; -MIDAZOLAM HCL 1 MG/ML 2ML VIAL ONE; -NITROGLYCERIN/D5W 100MCG/ML 20ML SYR ONE; -NiCARDipine HCL INJ 2.5 MG/ML 10 ML AMP ONE
--- NOTE | 2017-10-02 15:08 | DIAGNOSTIC IMAGING REPORT ---
KUB HISTORY: N20.0 [id number] Left adrenal massR10.9 Flank painR93. COMPARISON: None. FINDINGS: The bowel gas pattern is unremarkable. There are no dilated loops of small bowel to suggest an obstruction. Stable 5 mm stone within the lower pole of the right kidney. No left renal or ureteral calculi. Postoperative changes within the lower lumbar spine. Portion of the left S1 pedicle screw is again noted. There is interstitial thickening within the lung bases. No pneumoperitoneum or pneumatosis. IMPRESSION: 1. Stable 5 mm stone within the lower pole of the right kidney. No ureteral calculi. 2. Interstitial thickening at the lung bases. Electronically signed by: Angel Goins M.D. 10/02/2017 3:06 PM Dictated Date/Time: 10/02/2017 3:03 PM
--- NOTE | 2017-10-02 15:35 | DIAGNOSTIC IMAGING REPORT ---
RENAL ULTRASOUND HISTORY: N20.0 [id number] Left adrenal massR10.9 Flank painR93. COMPARISON: KUB 09/22/2017. Abdomen and pelvis CT 02/26/2017. FINDINGS: Right kidney: 11.1 cm. The right renal stone seen on the prior studies is not clearly identified by this modality. No hydronephrosis. Normal corticomedullary differentiation and cortical thickness. Left kidney: 13.1 cm. No hydronephrosis. Normal corticomedullary differentiation and cortical thickness. Bladder: No bladder wall thickening. The bilateral ureteral jets were identified. Miscellaneous: Hepatic steatosis. A 4.0 x 2.6 x 3.4 cm hypoechoic left adrenal mass is again noted. IMPRESSION: 1. No hydronephrosis. 2. Redemonstration of the 4.0 x 2.6 x 3.4 cm hypoechoic left adrenal mass. This may have slightly increased in size in the interval. Electronically signed by: Angel Goins M.D. 10/02/2017 3:34 PM Dictated Date/Time: 10/02/2017 3:30 PM
== END | disposition home or self-care (01) ==
LOC: C.ULTR 14:33
PROVIDERS: ATTEND Urology
DX: E27.9 Disorder of adrenal gland, unspecified (principal); N13.30 Unspecified hydronephrosis; N20.0 Calculus of kidney; R10.9 Unspecified abdominal pain; R93.429 Abnormal radiologic findings on diagnostic imaging of unspecified kidney

== ENCOUNTER → 2017-12-12 | Outpatient (CLI) | payer OTHER ==
[2017-12-12 14:42] LABS: HEMATOCRIT 41.6 % (37-47); MEAN CELL VOLUME 89.7 fL (80-100); MEAN CORPUSCULAR HEMOGLOBIN 30.2 pg (25-34); MEAN CORPUSCULAR HGB CONC 33.7 g/dl (32-36); MEAN PLATELET VOLUME 10.6 fL (7.4-10.4); PLATELET COUNT 174 K/uL (130-400); RED CELL DISTRIBUTION WIDTH CV 13.4 % (11.5-14.5); RED CELL DISTRIBUTION WIDTH SD 43.8 fL (36.4-46.3); WHITE BLOOD COUNT 7.81 K/uL (4.8-10.8)
[2017-12-12 14:51] LABS: ALBUMIN 3.5 gm/dl (3.4-5.0); ALT/SGPT 37 U/L (12-78); AST/SGOT 22 U/L (15-37); BLOOD UREA NITROGEN 12 mg/dl (7-18); CARBON DIOXIDE 25 mmol/L (21-32); CREATININE 0.93 mg/dl (0.60-1.20); GLUCOSE 135 mg/dl (70-99); POTASSIUM 4.2 mmol/L (3.5-5.1); SODIUM 136 mmol/L (136-145)
[2017-12-12 15:02] LABS: ALKALINE PHOSPHATASE 91 U/L (45-117); CHOLESTEROL 221 mg/dl (0-200); LDL CHOLESTEROL CALCULATED 139 mg/dl; TOTAL PROTEIN 7.5 gm/dl (6.4-8.2)
== END | disposition home or self-care (01) ==
LOC: C.LAB1850 13:14
PROVIDERS: ATTEND Internal Medicine Interventional Cardiology
DX: E27.9 Disorder of adrenal gland, unspecified (principal); E11.9 Type 2 diabetes mellitus without complications; I25.10 Atherosclerotic heart disease of native coronary artery without angina pectoris; R53.83 Other fatigue

== ENCOUNTER → 2018-01-01 | Outpatient (CLI) | payer OTHER ==
[~2018-01-01] MED LIST changes: +GADAVIST IV PRN
--- NOTE | 2018-01-01 12:09 | DIAGNOSTIC IMAGING REPORT ---
ABDOMEN COMBO CLINICAL HISTORY: Adrenal mass. COMPARISON STUDY: Ultrasound 10/02/2017. CT abdomen 02/26/2017 MRI 08/18/2016 TECHNIQUE: MRI of the abdomen is performed transverse T1 and T2-weighted sequences in the axial and coronal planes. Contrast enhanced sequences were acquired following the IV administration of gadolinium. FINDINGS: Lower chest: No pleural effusion is identified. The heart is normal in size. Liver: The liver is normal in size, contour, and signal intensity. No intrahepatic biliary ductal dilatation is seen. The hepatic veins and portal veins are patent. Gallbladder: Unremarkable. Spleen: Normal in size and signal intensity. Pancreas: Unremarkable. Adrenal glands: Nodular enlargement of the left adrenal currently measuring 3.1 x 3.0 x 2.8 cm. This is unchanged from the prior MRI and CT exams. The enlargement seen in the patient's prior ultrasound is not confirmed on this study. The right adrenal remains unremarkable. Kidneys: Improved appearance to the kidneys. No evidence for hydronephrosis on the current study. No renal pelvic mass as was previously described. Bowel: Visualized portions of the small bowel and colon show no evidence of obstruction. Peritoneum: There is no abdominal ascites. Lymphadenopathy: None. Skeletal structures: Visualized skeletal structures times are normal marrow signal intensity. IMPRESSION: 1. Stable left adrenal nodule compared to prior CT and MRI studies dating to 2005. 2. Improved appearance to the right kidney with the kidneys at this time unremarkable. 3. All remaining components of the study are unremarkable. The above report was generated using voice recognition software. It may contain grammatical, syntax or spelling errors. Electronically signed by: Ej Serrano M.D. 01/01/2018 12:08 PM Dictated Date/Time: 01/01/2018 11:59 AM
== END | disposition home or self-care (01) ==
LOC: C.MRI 10:41
PROVIDERS: ATTEND Urology
DX: E27.9 Disorder of adrenal gland, unspecified (principal)

== ENCOUNTER 2019-01-05 10:39 | Inpatient (IN) ==
[2019-01-05] MEDS ORDERED: KETOROLAC TROMETHAMINE 15 MG/ML VIAL IV STA (11:29)
[2019-01-05] MEDS ORDERED: ONDANSETRON INJ 2 MG/ML 2 ML VIAL IV STA (11:29)
[2019-01-05] MEDS ORDERED: MoRPHine SULFATE 4 MG/ML 1 ML CARP\\VIAL IV STA ×2 (11:29→12:50)
[2019-01-05] MEDS ORDERED: SODIUM CHLORIDE 0.9% 1000ML 1,000 ML IV SCH (11:30)
[2019-01-05 11:40] LABS: Basophils # (auto) 0.02 K/uL (0-0.2); Basophils % (auto) 0.2 %; Eosinophils # (auto) 0.05 K/uL (0-0.5); Eosinophils % (auto) 0.4 %; Hematocrit (blood only) 42.9 % (37-47); Hemoglobin 14.6 g/dL (12.0-16.0); Immature Granulocytes # (auto) 0.03 K/uL (0.00-0.02); Immature Granulocytes % (auto) 0.2 %; Lymphocytes # (auto) 1.04 K/uL (1.2-3.4); Lymphocytes % (auto) 8.5 %; Monocytes # (auto) 0.12 K/uL (0.11-0.59); Neutrophils # (auto) 10.95 K/uL (1.4-6.5); Neutrophils % (auto) 89.7 %; Platelet Count 159 K/uL (130-400); RDW Coefficient of Variation 13.1 % (11.5-14.5); RDW Standard Deviation 42.6 fL (36.4-46.3); Red Blood Count 4.82 M/uL (4.2-5.4); White Blood Count 12.21 K/uL (4.8-10.8)
[2019-01-05 11:57] LABS: Albumin Level 3.9 gm/dl (3.4-5.0); BUN Creatinine Ratio 11.9 (10-20); Calcium 9.7 mg/dl (8.5-10.1); Creatinine Clr Calc Pharmacy 58.7 ml/min; Est GFR (African American) 65.3; Est GFR (Non-African American) 56.4; Potassium 4.2 mmol/L (3.5-5.1)
[2019-01-05 11:59] LABS: Albumin Globulin Ratio 0.9 (0.9-2); Bilirubin,Total 0.4 mg/dl (0.2-1); Globulin 4.3 gm/dl (2.5-4.0); Total Protein 8.2 gm/dl (6.4-8.2)
[2019-01-05] MEDS ORDERED: IOVERSOL 100ml IV PRN (12:24)
--- NOTE | 2019-01-05 12:36 | CT Scan Report ---
CT abd pelvis IV con only CLINICAL HISTORY: Right lower quadrant abdominal pain COMPARISON STUDY: 12/06/2018 TECHNIQUE: The patient was scanned in a dynamic helical fashion during intravenous administration of 94 cc of Optiray 320. A dose lowering technique was utilized adhering to the principles of ALARA. CT DOSE: 1242.16 mGy.cm FINDINGS: Lower chest: There is evidence for mild right lower lobe bronchial wall thickening. There is intersti tial edema with subtle groundglass pulmonary opacities. Liver: There is hepatic steatosis. No focal masses are visualized. Gallbladder: Cholelithiasis Spleen: Normal in size and attenuation. Pancreas: Unremarkable. Adrenal glands: There is a 3.5 cm left adrenal nodule. This remains unchanged in size. Kidneys: There is a slightly diminished right-sided nephrogram. There is mild right-sided hydronephro sis. There is right-sided perinephric fluid. There is an obstructing 5 mm mid right ureteral calculus at the S1-S2 level Bowel: There are no transition zones indicate bowel obstruction. The appendix appears normal. There i s no acute diverticulitis. Peritoneum: There is right perinephric fluid. There is no significant ascites. There is no free intra peritoneal air. Vasculature: The abdominal aorta is normal in course and caliber. Adenopathy: None. Pelvic viscera: The bladder, and pelvic viscera are unremarkable. Skeletal structures: No destructive osseous lesions are seen. IMPRESSION: 1. 5 mm obstructing mid right ureteral calculus 2. No evidence of bowel obstruction. No evidence of free air 3. Normal appendix. No evidence of acute diverticulitis 4. Cholelithiasis 5. Hepatic steatosis 6. Stable 3.5 cm left adrenal nodule 7. Lower lung zone septal thickening/edema with a mosaic groundglass opacities Electronically signed by: Bruce Mckeon M.D. 01/05/2019 12:34 PM
--- NOTE | 2019-01-05 13:32 | XRay Report ---
XR chest 1V portable CLINICAL HISTORY: Shortness of breath COMPARISON STUDY: 11/20/2016 FINDINGS: The heart is mildly enlarged. There is radiographic evidence of interstitial pulmonary jairo a. There is no lobar consolidation. There is faint visualization of a curvilinear stent/catheter proj ected over the right medial heart border[ IMPRESSION: Pulmonary edema pattern Electronically signed by: Bruce Mckeon M.D. 01/05/2019 1:31 PM
[2019-01-05 14:03] LABS: Appearance Urine Clear (Clear); Bacteria Urine Automated Negative (Negative); Bilirubin Urine Negative (Negative); Blood Urine 3+ (Negative); Color Urine Yellow; Glucose Urine UA Negative (Negative); Ketones Urine Negative (Negative); Leukocyte Esterase Urine 1+ (Negative); Nitrite Urine Negative (Negative); Protein Urine Negative (Negative); Specific Gravity Urine > 1.045 (1.000-1.030); Urobilinogen Urine Negative (Negative); WBC Urine Automated >30 /hpf (0-5)
[2019-01-05] MEDS ORDERED: cefTRIAXone SODIUM 1,000 MG/50 ML BAG IV STA (14:19)
[2019-01-05] MEDS ORDERED: FUROSEMIDE 40 MG/4 ML VIAL IV STA (14:20)
[2019-01-05] MEDS ORDERED: MoRPHine SULFATE 2 MG/ML CARP IV STA (14:24)
[2019-01-05] MEDS ORDERED: methylPREDNISolone 125 MG/2 ML VIAL IV STA (15:13)
[2019-01-05] MEDS ORDERED: ALBUT/IPRATROP 3MG/0.5MG NEB 3 ML VIAL NEB STA (15:13)
--- NOTE | 2019-01-05 15:26 | Emergency Department Note ---
Entered by Bhumi Louis acting as a scribe for History of Present Illness General Chief complaint: Kidney Stone Stated complaint: KIDNEY STONE Source: patient History of Present Illness Onset (ago): hour(s) (this morning) Location: abdomen (right-sided) Radiation: back Severity: similar to prior episodes Pain Consistency: + other (persistent ) Maximum Pain Intensity: 10 Associated symptoms: + nausea/vomiting (positive nasuea; negative vomiting) Treatments prior to arrival: none The patient is a 58 year old female who presents to the Emergency Room with complaints of persistent right-sided abdominal pain that began this morning. The patient states that this pain radiates to her back. She states that her symptoms are similar to prior episodes of kidney stones. The patient states that she is nauseous. She denies any treatments prior to arrival. She states that she still has her appendix. The patient states that she has a stent after previous kidney stones. Home Medications Home Medications Medication Instructions Recorded Confirmed Type aspirin [Aspir-Low] 81 mg PO DAILY 01/05/19 01/05/19 History atorvastatin 20 mg PO DAILY 01/05/19 01/05/19 History citalopram 40 mg PO DAILY 01/05/19 01/05/19 History clopidogrel 75 mg PO DAILY 01/05/19 01/05/19 History gabapentin 300 mg PO BID 01/05/19 01/05/19 History glipizide 5 mg PO DAILY 01/05/19 01/05/19 History isosorbide mononitrate 60 mg PO BID 01/05/19 01/05/19 History levothyroxine 25 mcg PO DAILY 01/05/19 01/05/19 History losartan 25 mg PO DAILY 01/05/19 01/05/19 History metformin 1,000 mg PO PM 01/05/19 01/05/19 History metoprolol tartrate 50 mg PO PM 01/05/19 01/05/19 History metoprolol tartrate 100 mg PO QAM 01/05/19 01/05/19 History potassium chloride 10 meq PO DAILY 01/05/19 01/05/19 History Allergies Allergy/AdvReac Type Severity Reaction Status Date / Time amlodipine Allergy Unknown UNKNOWN Unverified 01/05/19 13:58 REACTION niacin Allergy Unknown Gastrointestinal Unverified 01/05/19 13:58 Upset Past Med/Surg History Medical History Kidney stones Social History Current Living Situation: Family Current Living Situation Comment: lives with sister Other Information That Helps Us Care for You: Yes (patient cared for mother, now no place to live, need to sell house) Feels Safe at Home: Yes Safety Concerns: Feels Safe At This Time Smoking Status: Current every day smoker Tobacco Type: cigarettes Cigarettes per Day: 20 Do You Dip or Chew Tobacco: No Second Hand Exposure: No Tobacco Cessation Education Requested by Patient: No Hx Alcohol Use: No Hx Substance Use: No Beliefs That Will Affect Care: None Preferred Language: Czech Communication Ability: Effective Farm 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 and A total of 10 systems reviewed and were otherwise negative Physical Exam Vital Signs Vital Signs - 24 hr 01/05/19 10:43 01/05/19 11:36 01/05/19 13:00 Temperature 36.3 C L Temperature Source Oral Sepsis Recent Fever Within 48 Hours No Sepsis Action Taken by Nursing No Action Required Pulse Rate 66 Pulse Rate [Left] 75 Pulse Rhythm [Left] Pulse Strength [Left] Respiratory Rate 20 22 Respiratory Effort / Characteristics Non-Labored Respiratory Depth Normal Respiratory Pattern Blood Pressure 189/78 H Blood Pressure [Left Arm] 130/60 Blood Pressure Mean 115 Blood Pressure Mean [Left Arm] 83 Pulse Oximetry 97 96 Oxygen Delivery Method Room Air Room Air Oxygen Flow Rate 01/05/19 13:30 01/05/19 14:50 01/05/19 14:54 Temperature Temperature Source Sepsis Recent Fever Within 48 Hours Sepsis Action Taken by Nursing Pulse Rate Pulse Rate [Left] 81 Pulse Rhythm [Left] Regular Pulse Strength [Left] Normal Respiratory Rate 18 Respiratory Effort / Characteristics Non-Labored Respiratory Depth Normal Respiratory Pattern Regular Blood Pressure Blood Pressure [Left Arm] Blood Pressure Mean Blood Pressure Mean [Left Arm] Pulse Oximetry 79 L 86 L 85 L Oxygen Delivery Method Room Air Room Air Room Air Oxygen Flow Rate 01/05/19 15:00 01/05/19 15:15 01/05/19 15:50 Temperature Temperature Source Sepsis Recent Fever Within 48 Hours Sepsis Action Taken by Nursing Pulse Rate Pulse Rate [Left] 71 72 Pulse Rhythm [Left] Pulse Strength [Left] Respiratory Rate 20 Respiratory Effort / Characteristics Non-Labored Spontaneous Respiratory Depth Normal Shallow Respiratory Pattern Regular Blood Pressure Blood Pressure [Left Arm] Blood Pressure Mean Blood Pressure Mean [Left Arm] Pulse Oximetry 86 L 84 L Oxygen Delivery Method Room Air Room Air Nasal Cannula Oxygen Flow Rate 2 01/05/19 16:00 01/05/19 16:17 01/05/19 16:32 Temperature Temperature Source Sepsis Recent Fever Within 48 Hours Sepsis Action Taken by Nursing Pulse Rate Pulse Rate [Left] Pulse Rhythm [Left] Pulse Strength [Left] Respiratory Rate Respiratory Effort / Characteristics Respiratory Depth Respiratory Pattern Blood Pressure Blood Pressure [Left Arm] 128/68 Blood Pressure Mean Blood Pressure Mean [Left Arm] 88 Pulse Oximetry 91 90 90 Oxygen Delivery Method Nasal Cannula Nasal Cannula Nasal Cannula Oxygen Flow Rate 2 2 2 GENERAL: Awake, alert, well-appearing, laying uncomfortably on the stretcher. HENT: Normocephalic, atraumatic. Oropharynx unremarkable. EYES: Normal conjunctiva. Sclera non-icteric. NECK: Supple. No nuchal rigidity. RESPIRATORY: Clear to auscultation. No wheezes. Normal respiratory effort. CARDIAC: Normal rate. Normal rhythm. Extremities warm and well perfused. GI: Soft, non-distended. No rebound or guarding. No masses. Mild right flank/ RLQ tenderness. RECTAL: Deferred. MUSCULOSKELETAL: Atraumatic. Chest examination reveals no tenderness. LOWER EXTREMITIES: Calves are equal size bilaterally and non-tender. No edema NEURO: Normal sensorium. No sensory or motor deficits noted. No facial droop. SKIN: Warm and dry. No rash or jaundice noted. Course 1127: Past medical records reviewed. The patient was evaluated in room A12A, and a complete history and physical examination were performed. 1543: I discussed the case with Dr. Rojas who states that there is no urgent urological intervention needed currently. 1548: Dr. Vaughan[facility] Hospitalist has been made aware of the case. 1620: Dr. Vaughan in room seeing patient. Consultations Consultation #1: I discussed the case with Dr. SmithUrologkomal who states that there is no urgent urological intervention needed currently. Time: 15:43 Administered Medications Ioversol (Optiray 320 100ml) 94 ml IV ONCE PRN PRN Reason: Interaction Checking Stop: 01/09/19 12:23 Last Admin: 01/05/19 12:24 Dose: 94 ml Discontinued Medications Albuterol (Duoneb) 3 ml NEB NOW STA Stop: 01/05/19 15:14 Last Admin: 01/05/19 15:33 Dose: 3 ml Furosemide (Lasix) 40 mg IV NOW STA Stop: 01/05/19 14:21 Last Admin: 01/05/19 14:56 Dose: 40 mg Sodium Chloride (Nss 1000ml) 1,000 mls @ 999 mls/hr IV .Q1H1M MARISA Stop: 01/05/19 12:30 Last Infusion: 01/05/19 12:49 Dose: 0 mls/hr Admin: 01/05/19 11:46 Dose: 999 mls/hr Ceftriaxone Sodium (Rocephin) 1,000 mg in 50 mls @ 100 mls/hr IV NOW STA Stop: 01/05/19 14:48 Last Infusion: 01/05/19 15:27 Dose: 0 mls/hr Admin: 01/05/19 14:56 Dose: 100 mls/hr Ketorolac Tromethamine (Toradol) 15 mg IV NOW STA Stop: 01/05/19 11:30 Last Admin: 01/05/19 11:47 Dose: 15 mg Methylprednisolone (Solumedrol) 125 mg IV NOW STA Stop: 01/05/19 15:14 Last Admin: 01/05/19 15:33 Dose: 125 mg Morphine Sulfate (Morphine Sulfate) 4 mg IV NOW STA Stop: 01/05/19 11:30 Last Admin: 01/05/19 11:46 Dose: 4 mg Morphine Sulfate (Morphine Sulfate) 4 mg IV NOW STA Stop: 01/05/19 12:51 Last Admin: 01/05/19 13:05 Dose: 4 mg Morphine Sulfate (Morphine Sulfate) 2 mg IV NOW STA Stop: 01/05/19 14:25 Last Admin: 01/05/19 14:56 Dose: 2 mg Ondansetron HCl (Zofran) 4 mg IV NOW STA Stop: 01/05/19 11:30 Last Admin: 01/05/19 11:47 Dose: 4 mg Medical Decision Making Differential Diagnosis Differential diagnosis: Etiologies such as biliary colic, cholecystitis, hepatitis, perihepatitis, pancreatitis, cardiac disease, pancreatitis, gastritis, peptic ulcer disease, appendicitis, ovarian cyst, ovarian torsion, ectopic , pelvic inflammatory disease, cystitis, diverticulitis, mesenteric ischemia, inflammatory bowel disease, ileus, bowel obstruction, aortic pathology, shingles , as well as others were considered. Medical Records Attestation: I reviewed the patient's medical records. Home Medications Current Medication List: was personally reviewed by me Laboratory Data Attestation: I reviewed the patient's lab results. Result diagrams: 01/05/19 11:30 01/05/19 11:30 Lab Results 01/05/19 01/05/19 01/05/19 Range/Units 11:30 11:30 11:30 WBC 12.21 H (4.8-10.8) K/uL RBC 4.82 (4.2-5.4) M/uL Hgb 14.6 (12.0-16.0) g/dL Hct 42.9 (37-47) % MCV 89.0 (80-100) fL MCH 30.3 (25-34) pg MCHC 34.0 (32-36) g/dL RDW Std Deviation 42.6 (36.4-46.3) fL RDW Coeff of James 13.1 (11.5-14.5) % Plt Count 159 (130-400) K/uL MPV 10.0 (7.4-10.4) fL Immature Gran % (Auto) 0.2 % Neut % (Auto) 89.7 % Lymph % (Auto) 8.5 % [place] % (Auto) 1.0 % Eos % (Auto) 0.4 % Baso % (Auto) 0.2 % Immature Gran # (Auto) 0.03 H (0.00-0.02) K/uL Neut # (Auto) 10.95 H (1.4-6.5) K/uL Lymph # (Auto) 1.04 L (1.2-3.4) K/uL [place] # (Auto) 0.12 (0.11-0.59) K/uL Eos # (Auto) 0.05 (0-0.5) K/uL Baso # (Auto) 0.02 (0-0.2) K/uL Sodium 135 L (136-145) mmol/L Potassium 4.2 (3.5-5.1) mmol/L Chloride 101 (98-107) mmol/L Carbon Dioxide 26 (21-32) mmol/L Anion Gap 8.0 (3-11) BUN 13 (7-18) mg/dl Creatinine 1.07 (0.6-1.2) mg/dl Est Cr Clr Drug Dosing 58.7 ml/min Est GFR ( Amer) 65.3 Est GFR (Non-Af Amer) 56.4 BUN/Creatinine Ratio 11.9 (10-20) Glucose 138 H (70-99) mg/dl Calcium 9.7 (8.5-10.1) mg/dl Total Bilirubin 0.4 (0.2-1) mg/dl AST 19 (15-37) U/L ALT 33 (12-78) U/L Alkaline Phosphatase 90 (45-117) U/L Troponin I < 0.015 (0-0.045) ng/ml Total Protein 8.2 (6.4-8.2) gm/dl Albumin 3.9 (3.4-5.0) gm/dl Globulin 4.3 H (2.5-4.0) gm/dl Albumin/Globulin Ratio 0.9 (0.9-2) Lipase 105 (73-393) U/L Urine Color Urine Appearance (Clear) Urine pH (4.5-7.5) Ur Specific [place] (1.000-1.030) Urine Protein (Negative) Urine Glucose (UA) (Negative) Urine Ketones (Negative) Urine Blood (Negative) Urine Nitrite (Negative) Urine Bilirubin (Negative) Urine Urobilinogen (Negative) Ur Leukocyte Esterase (Negative) Urine WBC (Auto) (0-5) /hpf Urine RBC (Auto) (0-4) /hpf U Hyaline Cast (Auto) (0-5) /lpf U Epithel Cells (Auto) (0-5) /lpf Urine Bacteria (Auto) (Negative) 01/05/19 Range/Units 13:52 WBC (4.8-10.8) K/uL RBC (4.2-5.4) M/uL Hgb (12.0-16.0) g/dL Hct (37-47) % MCV (80-100) fL MCH (25-34) pg MCHC (32-36) g/dL RDW Std Deviation (36.4-46.3) fL RDW Coeff of James (11.5-14.5) % Plt Count (130-400) K/uL MPV (7.4-10.4) fL Immature Gran % (Auto) % Neut % (Auto) % Lymph % (Auto) % [place] % (Auto) % Eos % (Auto) % Baso % (Auto) % Immature Gran # (Auto) (0.00-0.02) K/uL Neut # (Auto) (1.4-6.5) K/uL Lymph # (Auto) (1.2-3.4) K/uL [place] # (Auto) (0.11-0.59) K/uL Eos # (Auto) (0-0.5) K/uL Baso # (Auto) (0-0.2) K/uL Sodium (136-145) mmol/L Potassium (3.5-5.1) mmol/L Chloride (98-107) mmol/L Carbon Dioxide (21-32) mmol/L Anion Gap (3-11) BUN (7-18) mg/dl Creatinine (0.6-1.2) mg/dl Est Cr Clr Drug Dosing ml/min Est GFR ( Amer) Est GFR (Non-Af Amer) BUN/Creatinine Ratio (10-20) Glucose (70-99) mg/dl Calcium (8.5-10.1) mg/dl Total Bilirubin (0.2-1) mg/dl AST (15-37) U/L ALT (12-78) U/L Alkaline Phosphatase (45-117) U/L Troponin I (0-0.045) ng/ml Total Protein (6.4-8.2) gm/dl Albumin (3.4-5.0) gm/dl Globulin (2.5-4.0) gm/dl Albumin/Globulin Ratio (0.9-2) Lipase (73-393) U/L Urine Color Yellow Urine Appearance Clear (Clear) Urine pH 5.0 (4.5-7.5) Ur Specific [place] > 1.045 H (1.000-1.030) Urine Protein Negative (Negative) Urine Glucose (UA) Negative (Negative) Urine Ketones Negative (Negative) Urine Blood 3+ H (Negative) Urine Nitrite Negative (Negative) Urine Bilirubin Negative (Negative) Urine Urobilinogen Negative (Negative) Ur Leukocyte Esterase 1+ H (Negative) Urine WBC (Auto) >30 H (0-5) /hpf Urine RBC (Auto) 10-30 H (0-4) /hpf U Hyaline Cast (Auto) 1-5 (0-5) /lpf U Epithel Cells (Auto) 5-10 H (0-5) /lpf Urine Bacteria (Auto) Negative (Negative) Imaging Data Radiologist's Impression: Radiology results as stated below per my review and the radiologist's interpretation: CT abd pelvis IV con only CLINICAL HISTORY: Right lower quadrant abdominal pain COMPARISON STUDY: 12/06/2018 TECHNIQUE: The patient was scanned in a dynamic helical fashion during intravenous administration of 94 cc of Optiray 320. A dose lowering technique was utilized adhering to the principles of ALARA. CT DOSE: 1242.16 mGy.cm FINDINGS: Lower chest: There is evidence for mild right lower lobe bronchial wall thickening. There is interstitial edema with subtle groundglass pulmonary opacities. Liver: There is hepatic steatosis. No focal masses are visualized. Gallbladder: Cholelithiasis Spleen: Normal in size and attenuation. Pancreas: Unremarkable. Adrenal glands: There is a 3.5 cm left adrenal nodule. This remains unchanged in size. Kidneys: There is a slightly diminished right-sided nephrogram. There is mild right-sided hydronephrosis. There is right-sided perinephric fluid. There is an obstructing 5 mm mid right ureteral calculus at the S1-S2 level Bowel: There are no transition zones indicate bowel obstruction. The appendix appears normal. There is no acute diverticulitis. Peritoneum: There is right perinephric fluid. There is no significant ascites. There is no free intraperitoneal air. Vasculature: The abdominal aorta is normal in course and caliber. Adenopathy: None. Pelvic viscera: The bladder, and pelvic viscera are unremarkable. Skeletal structures: No destructive osseous lesions are seen. IMPRESSION: 1. 5 mm obstructing mid right ureteral calculus 2. No evidence of bowel obstruction. No evidence of free air 3. Normal appendix. No evidence of acute diverticulitis 4. Cholelithiasis 5. Hepatic steatosis 6. Stable 3.5 cm left adrenal nodule 7. Lower lung zone septal thickening/edema with a mosaic groundglass opacities Electronically signed by: Bruce Mckeon M.D. 01/05/2019 12:34 PM XR chest 1V portable CLINICAL HISTORY: Shortness of breath COMPARISON STUDY: 11/20/2016 FINDINGS: The heart is mildly enlarged. There is radiographic evidence of interstitial pulmonary edema. There is no lobar consolidation. There is faint visualization of a curvilinear stent/catheter projected over the right medial heart border[ IMPRESSION: Pulmonary edema pattern Electronically signed by: Bruce Mckeon M.D. 01/05/2019 1:31 PM ECG Data Attestation: I personally reviewed and interpreted this ECG as follows: Indication: abdominal pain Rate (beats per minute): 72 Rhythm: normal sinus Findings: + other (non-specific T wave changes); no PVC and no ST elevation MDM Narrative Patient is a 58-year-old female with a history of kidney stones, hypertension, diabetes presenting today complaining of onset this morning of severe right flank and right inguinal pain. Nausea associated. States that she is just getting over a respiratory infection just finished azithromycin. No diarrhea. No trauma. No fevers reported. Denies urinary symptoms. Concerning for recurrence of possible kidney stone. Does have some mild right lower quadrant pain. Basic laboratory studies were completed showing slight leukocytosis believe more reactive. Kidney function at baseline. No evidence of hepatitis pancreatitis. CT scan revealed a 5 mm right-sided stone. No evidence of perforation or appendicitis. Later complained of some shortness of breath a little bit hypoxic after dosing of morphine for pain control. Chest x-ray, EKG and troponin were completed. Troponin is negative. No believe this represents acute ACS or PE. CT with some slight ground glass opacities and x-ray consistent with some mild pulmonary edema. Just finished a Z-Angel for upper respiratory type infection. Long tobacco history and likely does have some hypoxia at baseline. States she does feel slightly short of breath but better than a little bit earlier. Believe that she may have a little bit of extra fluid overload that may have been exacerbated by the IV fluid here. She denies a history of heart failure and there is no evidence of significant leg swelling. Given a small amount of Lasix and with the questionable urinalysis given a dose of ceftriaxone will start on antibiotics. Given a DuoNeb and some steroids for any possible underlying COPD issue. Does not appear again septic or seem to have pyelonephritis. Monitoring here shows that while sleeping her pulse upstrokes in the high 70s. Discussed with her and have concerns regarding this. Difficult situation with pain control and her respiratory status. Call placed to [facility] hospitalist. Did place a call and discuss the case with urology. Dr. Moura does not believe urgent urological intervention is necessary. Again she does not appear septic. Impression & Plan Left nephrolithiasis, Hypoxia, Pulmonary edema Discharge Plan Visit Data Chief Complaint: Kidney Stone Stated Complaint: KIDNEY STONE ED Provider: Dennis Adams Discharge Problem: Left nephrolithiasis, Hypoxia, Pulmonary edema Patient Disposition: Being Evaluated by Hospitalist Forms Stand Alone Forms: My [facility] Prescriptions Prescriptions: No Action potassium chloride 10 mEq capsule, extended release 10 meq PO DAILY RF: 0 atorvastatin 20 mg tablet 20 mg PO DAILY RF: 0 citalopram 40 mg tablet 40 mg PO DAILY RF: 0 metoprolol tartrate 100 mg tablet 50 mg PO PM RF: 0 metoprolol tartrate 100 mg tablet 100 mg PO QAM RF: 0 glipizide 5 mg tablet extended release 24hr 5 mg PO DAILY RF: 0 clopidogrel 75 mg tablet 75 mg PO DAILY RF: 0 aspirin [Aspir-Low] 81 mg Tablet,Delayed Release (Dr/Ec) 81 mg PO DAILY RF: 0 levothyroxine 25 mcg tablet 25 mcg PO DAILY RF: 0 isosorbide mononitrate 60 mg tablet extended release 24 hr 60 mg PO BID RF: 0 losartan 25 mg tablet 25 mg PO DAILY RF: 0 gabapentin 300 mg capsule 300 mg PO BID RF: 0 metformin 500 mg tablet extended release 24 hr 1,000 mg PO PM RF: 0 Referrals Referrals: Prieto Barrera [Primary Care Provider] - The scribe's documentation has been prepared under my direction and personally reviewed by me in its entirety. I confirm that the note above accurately reflects all work, treatment, procedures, and medical decision making performed by me.
--- NOTE | 2019-01-05 15:41 | History & Physical Report ---
Date of Service January 05, 2019 Assessment & Plan (1) Left nephrolithiasis: 58 y/o F Hx severe CAD, HTN, HLD, DM II, obese, nephrolithiasis, smoker. Presents with R sided, lower abdominal pain radiating into her back. She admits to nausea and denies vomiting, fevers or rigors. The pt was tachypneic and hypoxic on arrival to the ER and a CXR was consistent with CHF which she does not have a history of. She has not had any complaints of CP it did not c/ o SOB despite her hypoxia. A CT of the abdomen was obtained demonstrating an obstructing 5 mm mid right ureteral calculus, mild right-sided hydronephrosis, right-sided perinephric fluid. 1) Obtsructing calculus - we have consulted urology, however, surgical procedure should be delayed if possible as she currently exhibits decompensated CHF. We have provided analgesics, antiemetics, flomax and will provide antibiotics under the circumstances although her UA is equivocal. 2) CHF - no prior history - received 40mg Lasix in ER. I/O, daily weights, cont B richardson, ENRIQUE - cardiology consult and an echo are pending. 3) CAD - no evidence of ACS - cont ASA, Plavix, B richardson, Statin, Imdur 4) DM II - placed on a SS 5) Hypothyroidism - cont Synthroid 6) The pt has been duly rebuked for persistent tobacco abuse in light of her underlying medical issues and is aware she is at high risk for a heart attack or stroke. Full code - SCDs - total time for this admit including review of labs, meds, imaging, records - discussion with pt and ER attending - 42 min Present on Admission?: Yes (2) Pulmonary edema: History of Present Illness Primary Care Provider: Prieto Barrera 58 y/o F Hx severe CAD, HTN, HLD, DM II, obese, nephrolithiasis, smoker. Presents with R sided, lower abdominal pain radiating into her back. She admits to nausea and denies vomiting, fevers or rigors. The pt was tachypneic and hypoxic on arrival to the ER and a CXR was consistent with CHF which she does not have a history of. She has not had any complaints of CP it did not c/ o SOB despite her hypoxia. A CT of the abdomen was obtained demonstrating an obstructing 5 mm mid right ureteral calculus, mild right-sided hydronephrosis, right-sided perinephric fluid. PMH: 1) Nephrolithiasis - obstructing calculus requiring stent 2015 2) CAD - RCA stent - cath 2016 showing diffuse sever disease - medically managed 3) HTN 4) HLD 5) DM II 6) Obese 7) Hypothyroidism 8) Smoker Surgical: 1) Ureteral stent 2015 2) Stent in RCA Social: Smokes 1 pack daily > 40 yrs - does not drink Family: Mother following CVA Father ESRD, CHF Allergies Allergy/AdvReac Type Severity Reaction Status Date / Time amlodipine Allergy Unknown UNKNOWN Unverified 01/05/19 13:58 REACTION niacin Allergy Unknown Gastrointestinal Unverified 01/05/19 13:58 Upset Home Medications Home Medications Medication Instructions Recorded Confirmed Type aspirin [Aspir-Low] 81 mg PO DAILY 01/05/19 01/05/19 History atorvastatin 20 mg PO DAILY 01/05/19 01/05/19 History citalopram 40 mg PO DAILY 01/05/19 01/05/19 History clopidogrel 75 mg PO DAILY 01/05/19 01/05/19 History gabapentin 300 mg PO BID 01/05/19 01/05/19 History glipizide 5 mg PO DAILY 01/05/19 01/05/19 History isosorbide mononitrate 60 mg PO BID 01/05/19 01/05/19 History levothyroxine 25 mcg PO DAILY 01/05/19 01/05/19 History losartan 25 mg PO DAILY 01/05/19 01/05/19 History metformin 1,000 mg PO PM 01/05/19 01/05/19 History metoprolol tartrate 50 mg PO PM 01/05/19 01/05/19 History metoprolol tartrate 100 mg PO QAM 01/05/19 01/05/19 History potassium chloride 10 meq PO DAILY 01/05/19 01/05/19 History Past Med/Surg History Medical History Kidney stones Social History Feels Safe at Home: Yes Smoking Status: Current every day smoker Review of Systems Gen: Denies fevers, night sweats, rigors, fatigue, malaise, weight loss/gain ENT: Denies congestion, throat pain, hearing loss Eyes: Denies acute visual changes CV: Denies CP, palpitations Pulmonary: Denies SOB, cough, wheezing GI: Lower R abdominal pain radiating into back - nausea Neuro: Denies acute or unilateral weakness, acute gait impairment, headache or acute visual changes Musculoskeletal: Denies joint pain, inflammation Endocrine: Denies polydipsia, polyuria Skin: Denies acute rashes or ulcers Physical Exam 2 Vital Signs (Past 24 Hours): Last Vital Signs Temp 36.3 C L 01/05/19 10:43 Pulse 75 01/05/19 13:00 Resp 22 01/05/19 13:00 BP 130/60 01/05/19 13:00 Pulse Ox 90 01/05/19 14:54 Physical Exam: General: Overweight, midle-aged F, AAO x 3, no distress - lying flat with 02 ENT: No erythema or exudates, no thrush Eyes: BERNICE, EOMI Head and neck: Normocephalic, atraumatic - cannot examine JVD due to habitus Chest/heart: Nontender, S1,2, RRR, no murmurs, no gallops Lungs: BL crackles at bases Abdomen: Nontender, nondistended, BS+ Neuro: AAO x 3, speech is clear, no unilateral weakness or loss of sensation, coordination intact Musculoskeletal: No joint inflammation, muscle tenderness, FROM Skin: No acute rashes or ulcers Extremities: No clubbing, cyanosis, edema Results & Data Diagnostic Findings CT abdomen: 1. 5 mm obstructing mid right ureteral calculus 2. No evidence of bowel obstruction. No evidence of free air 3. Normal appendix. No evidence of acute diverticulitis 4. Cholelithiasis 5. Hepatic steatosis 6. Stable 3.5 cm left adrenal nodule 7. Lower lung zone septal thickening/edema with a mosaic groundglass opacities _ (1) Pulmonary edema Chronicity: acute Qualified Code(s): J81.0 - Acute pulmonary edema
[2019-01-05] MEDS ORDERED: ONDANSETRON INJ 2 MG/ML 2 ML VIAL IV PRN (18:21)
[2019-01-05] MEDS ORDERED: ZOLPIDEM TARTRATE 5 MG TAB PO PRN (18:21)
[2019-01-05] MEDS ORDERED: POLYETHYLENE (MIRALAX) 17 GM PACK PO PRN (18:21)
[2019-01-05] MEDS ORDERED: ALUMINUM/MAGNESIUM SUSP 30 ML UDC PO PRN (18:21)
[2019-01-05] MEDS ORDERED: ACETAMINOPHEN 325 MG TAB PO PRN (18:21)
[2019-01-05] MEDS ORDERED: MAGNESIUM HYDROXIDE SUSP 30 ML UDC PO PRN (18:21)
[2019-01-05] MEDS: HYDROmorphone INJ 0.5 MG/0.5 ML SYR IV PRN (20:22)
[2019-01-05] MEDS: GABAPENTIN 300 MG CAP PO SCH (20:23)
[2019-01-05] MEDS: METOPROLOL TARTRATE 50 MG TAB PO SCH (20:23)
[2019-01-05] MEDS: ISOSORBIDE MONO EXTENDED REL 60 MG TABCR PO SCH (20:23)
[2019-01-06] MEDS: HYDROmorphone INJ 0.5 MG/0.5 ML SYR IV PRN ×3 (02:20→21:33)
[2019-01-06] MEDS: LEVOTHYROXINE SODIUM 25 MCG TABLET PO SCH (06:43)
[2019-01-06] MEDS: METOPROLOL TARTRATE 100 MG TAB PO SCH (08:56)
[2019-01-06] MEDS: CITALOPRAM 40 MG TAB PO SCH (08:56)
[2019-01-06] MEDS: ISOSORBIDE MONO EXTENDED REL 60 MG TABCR PO SCH ×2 (08:56→21:09)
[2019-01-06] MEDS: POTASSIUM CHLORIDE 10 MEQ TABCR PO SCH (08:56)
[2019-01-06] MEDS: GABAPENTIN 300 MG CAP PO SCH ×2 (08:56→21:09)
[2019-01-06] MEDS: ATORVASTATIN 20 MG TAB PO SCH (08:56)
[2019-01-06] MEDS: CLOPIDOGREL BISULFATE 75 MG TAB PO SCH (08:57)
[2019-01-06] MEDS: ASPIRIN 81 MG ECTAB PO SCH (08:57)
[2019-01-06] MEDS: LOSARTAN POTASSIUM 25 MG TAB PO SCH (08:57)
--- NOTE | 2019-01-06 09:02 | Urology Consultation ---
Date of Consultation January 06, 2019 Assessment & Plan (1) Left nephrolithiasis: 58yo F with multiple comorbidities, with 5mm obs mid R ureteral stone with mild hydro, perinephric fluid. Afebrile, VSS Pain controlled presently with IV therapy approx every 12 hours. Pt remains anticoagulated on Plavix and ASA presently. CBC, BMP and KUB ordered today to assess stone progression. - Wbc elevated to 19.6, of note she received IV solumedrol yesterday. - Cr remain stable. - KUB - ureteral stone not visible. Requirement of supplemental O2 is new this admission. Pt would benefit from medical optimization of CHF presently. Okay to provide diet today from our perspective. Continue to strain all urine. Pt may pass stone spontaneously, however ureteroscopy, LL may be an option if pain persists. Discussed this with patient in detail and she is agreeable to observe for now. Will make her NPO at [place] to reassess. Thank you for allowing us to participate in the care of Ms. Burch. Please contact our service urgently for fever >101, intractable pain or vomiting. We will continue to follow closely with primary service. Care plan discussed with Dr. Hopkins. Please see additional comments per my attending physician if indicated. History of Present Illness Reason for Consultation: ureteral stone Requesting Physician: ureteral stone Attending Physician: Fran Jaramillo, History of Present Illness 58yo F with Hx multiple comorbidities including severe CAD, HTN, DM II, nephrolithiasis presented to [facility] ED last evening with persistent R lower abdominal pain radiating to her back due to 5mm obstructing mid ureteral stone with mild hydro and perinephric fluid. +nausea, no vomiting, afebrile. Also found to be tachycardic and hypoxic at that time. Established with Dr. Moura, following stable adrenal mass, nephrolithiasis. Pt appears comfortable at time of evaluation, rating pain 4/10 at this time. Taking dilaudid q12 hours with adequate relief. On plavix and aspirin daily. Afebrile, VSS WBC slightly elevated Cr stable yesterday UA abn, UC&S pending Allergies Allergy/AdvReac Type Severity Reaction Status Date / Time amlodipine Allergy Unknown UNKNOWN Unverified 01/05/19 13:58 REACTION niacin Allergy Unknown Gastrointestinal Unverified 01/05/19 13:58 Upset Home Medications Home Medications Medication Instructions Recorded Confirmed Type aspirin [Aspir-Low] 81 mg PO DAILY 01/05/19 01/05/19 History atorvastatin 20 mg PO DAILY 01/05/19 01/05/19 History citalopram 40 mg PO DAILY 01/05/19 01/05/19 History clopidogrel 75 mg PO DAILY 01/05/19 01/05/19 History gabapentin 300 mg PO BID 01/05/19 01/05/19 History glipizide 5 mg PO DAILY 01/05/19 01/05/19 History isosorbide mononitrate 60 mg PO BID 01/05/19 01/05/19 History levothyroxine 25 mcg PO DAILY 01/05/19 01/05/19 History losartan 25 mg PO DAILY 01/05/19 01/05/19 History metformin 1,000 mg PO PM 01/05/19 01/05/19 History metoprolol tartrate 50 mg PO PM 01/05/19 01/05/19 History metoprolol tartrate 100 mg PO QAM 01/05/19 01/05/19 History potassium chloride 10 meq PO DAILY 01/05/19 01/05/19 History Patient History Medical History Kidney stones Social History Current Living Situation: Family Current Living Situation Comment: lives with sister Other Information That Helps Us Care for You: Yes (patient cared for mother, now no place to live, need to sell house) Feels Safe at Home: Yes Safety Concerns: Feels Safe At This Time Smoking Status: Current every day smoker Tobacco Type: cigarettes Cigarettes per Day: 20 Do You Dip or Chew Tobacco: No Second Hand Exposure: No Tobacco Cessation Education Requested by Patient: No Hx Alcohol Use: No Hx Substance Use: No Beliefs That Will Affect Care: None Preferred Language: Latvian Communication 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: 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 Review of Systems Constitutional: no fever, no chills and no body aches Eyes: no problem reported Ear, Nose, Mouth, Throat: no ear pain Respiratory: no cough and no dyspnea Cardiovascular: no chest pain Gastrointestinal: no abdominal pain Genitourinary (Female): no dysuria, no urinary hesitancy, no urinary urgency and no hematuria Musculoskeletal: no back pain Integumentary: no acne Neurologic: no numbness and no paresthesia Psychiatric: no behavioral changes Endocrine: no polydipsia Hematologic / Lymphatic: no easy bleeding Physical Exam 2 Vital Signs (Past 24 Hours): Last Vital Signs Temp 36.7 C 01/06/19 07:15 Pulse 59 L 01/06/19 07:15 Resp 16 01/06/19 07:15 BP 123/71 01/06/19 07:15 Pulse Ox 97 01/06/19 07:15 Constitutional: well developed and + obese; no acute distress Eyes: no nystagmus ENMT: Ears: no hearing impairment Neck: trachea midline Respiratory: no respiratory distress and does not use accessory muscles Cardiovascular: Vessels: no JVD Gastrointestinal (Abdomen): Inspection/Auscultation: abdomen not distended and no abdominal edema Musculoskeletal: Head/Neck/Chest: + abnormal head shape Skin: no rashes, warm and dry (in exposed areas) Neurologic: awake; not confused and not obtunded Psychiatric: Orientation: alert and oriented x 3 Eye Contact: good eye contact Lymphatic: no lymphadenopathy Results & Data Laboratory Results Laboratory Results - last 48 hr 01/05/19 01/05/19 01/05/19 11:30 11:30 11:30 WBC 12.21 H RBC 4.82 Hgb 14.6 Hct 42.9 MCV 89.0 MCH 30.3 MCHC 34.0 RDW Std Deviation 42.6 RDW Coeff of James 13.1 Plt Count 159 MPV 10.0 Immature Gran % (Auto) 0.2 Neut % (Auto) 89.7 Lymph % (Auto) 8.5 [place] % (Auto) 1.0 Eos % (Auto) 0.4 Baso % (Auto) 0.2 Immature Gran # (Auto) 0.03 H Neut # (Auto) 10.95 H Lymph # (Auto) 1.04 L [place] # (Auto) 0.12 Eos # (Auto) 0.05 Baso # (Auto) 0.02 Sodium 135 L Potassium 4.2 Chloride 101 Carbon Dioxide 26 Anion Gap 8.0 BUN 13 Creatinine 1.07 Est Cr Clr Drug Dosing 58.7 Est GFR ( Amer) 65.3 Est GFR (Non-Af Amer) 56.4 BUN/Creatinine Ratio 11.9 Glucose 138 H POC Glucose Calcium 9.7 Total Bilirubin 0.4 AST 19 ALT 33 Alkaline Phosphatase 90 Troponin I < 0.015 Total Protein 8.2 Albumin 3.9 Globulin 4.3 H Albumin/Globulin Ratio 0.9 Lipase 105 Urine Color Urine Appearance Urine pH Ur Specific Allison Urine Protein Urine Glucose (UA) Urine Ketones Urine Blood Urine Nitrite Urine Bilirubin Urine Urobilinogen Ur Leukocyte Esterase Urine WBC (Auto) Urine RBC (Auto) U Hyaline Cast (Auto) U Epithel Cells (Auto) Urine Bacteria (Auto) 01/05/19 01/05/19 01/05/19 13:52 18:07 20:17 WBC RBC Hgb Hct MCV MCH MCHC RDW Std Deviation RDW Coeff of James Plt Count MPV Immature Gran % (Auto) Neut % (Auto) Lymph % (Auto) [place] % (Auto) Eos % (Auto) Baso % (Auto) Immature Gran # (Auto) Neut # (Auto) Lymph # (Auto) [place] # (Auto) Eos # (Auto) Baso # (Auto) Sodium Potassium Chloride Carbon Dioxide Anion Gap BUN Creatinine Est Cr Clr Drug Dosing Est GFR ( Amer) Est GFR (Non-Af Amer) BUN/Creatinine Ratio Glucose POC Glucose 176 H 171 H Calcium Total Bilirubin AST ALT Alkaline Phosphatase Troponin I Total Protein Albumin Globulin Albumin/Globulin Ratio Lipase Urine Color Yellow Urine Appearance Clear Urine pH 5.0 Ur Specific Allison > 1.045 H Urine Protein Negative Urine Glucose (UA) Negative Urine Ketones Negative Urine Blood 3+ H Urine Nitrite Negative Urine Bilirubin Negative Urine Urobilinogen Negative Ur Leukocyte Esterase 1+ H Urine WBC (Auto) >30 H Urine RBC (Auto) 10-30 H U Hyaline Cast (Auto) 1-5 U Epithel Cells (Auto) 5-10 H Urine Bacteria (Auto) Negative 01/06/19 07:20 WBC RBC Hgb Hct MCV MCH MCHC RDW Std Deviation RDW Coeff of James Plt Count MPV Immature Gran % (Auto) Neut % (Auto) Lymph % (Auto) [place] % (Auto) Eos % (Auto) Baso % (Auto) Immature Gran # (Auto) Neut # (Auto) Lymph # (Auto) [place] # (Auto) Eos # (Auto) Baso # (Auto) Sodium Potassium Chloride Carbon Dioxide Anion Gap BUN Creatinine Est Cr Clr Drug Dosing Est GFR ( Amer) Est GFR (Non-Af Amer) BUN/Creatinine Ratio Glucose POC Glucose 157 H Calcium Total Bilirubin AST ALT Alkaline Phosphatase Troponin I Total Protein Albumin Globulin Albumin/Globulin Ratio Lipase Urine Color Urine Appearance Urine pH Ur Specific Allison Urine Protein Urine Glucose (UA) Urine Ketones Urine Blood Urine Nitrite Urine Bilirubin Urine Urobilinogen Ur Leukocyte Esterase Urine WBC (Auto) Urine RBC (Auto) U Hyaline Cast (Auto) U Epithel Cells (Auto) Urine Bacteria (Auto)
[2019-01-06 09:47] LABS: Basophils # (auto) 0.01 K/uL (0-0.2); Basophils % (auto) 0.1 %; Eosinophils # (auto) 0.01 K/uL (0-0.5); Eosinophils % (auto) 0.1 %; Hematocrit (blood only) 39.2 % (37-47); Hemoglobin 13.4 g/dL (12.0-16.0); Immature Granulocytes # (auto) 0.05 K/uL (0.00-0.02); Immature Granulocytes % (auto) 0.3 %; Lymphocytes # (auto) 1.84 K/uL (1.2-3.4); Lymphocytes % (auto) 9.4 %; Mean Corpuscular Hgb Conc 34.2 g/dL (32-36); Mean Corpuscular Volume 88.7 fL (80-100); Mean Platelet Volume 10.2 fL (7.4-10.4); Monocytes # (auto) 1.11 K/uL (0.11-0.59); Monocytes % (auto) 5.6 %; Neutrophils # (auto) 16.65 K/uL (1.4-6.5); Neutrophils % (auto) 84.5 %; Platelet Count 143 K/uL (130-400); RDW Coefficient of Variation 13.3 % (11.5-14.5); RDW Standard Deviation 43.3 fL (36.4-46.3); Red Blood Count 4.42 M/uL (4.2-5.4); White Blood Count 19.67 K/uL (4.8-10.8)
--- NOTE | 2019-01-06 09:48 | XRay Report ---
XR KUB CLINICAL HISTORY: 58 years-old Female presenting with R mid ureteral stone progression. TECHNIQUE: Single supine view of the abdomen was obtained. COMPARISON: CT from 01/05/2019 and plain radiograph from 10/02/2017. FINDINGS: Cholelithiasis. Nonobstructive bowel gas pattern. No gross pneumoperitoneum. The previously noted mid right ureteral calculus is not definitively visualized. Atherosclerotic calc ifications also evident, which degrades evaluation. No radiographic evidence of renal calculi. Residual left transpedicular screw again noted in L5. Multilevel degenerative changes of the lumbar s pine with laminectomy defects of L3 and L4. Lung bases clear. IMPRESSION: 1. The previously noted mid right ureteral calculus is not definitively visualized. Electronically signed by: Luc Zuniga M.D. 01/06/2019 9:46 AM
[2019-01-06 10:12] LABS: BUN Creatinine Ratio 17.1 (10-20); Calcium 9.6 mg/dl (8.5-10.1); Creatinine Clr Calc Pharmacy 53.8 ml/min; Est GFR (African American) 58.7; Est GFR (Non-African American) 50.6; Potassium 4.2 mmol/L (3.5-5.1)
[2019-01-06] MEDS: cefTRIAXone SODIUM 1,000 MG/50 ML BAG IV SCH (18:02)
[2019-01-06] MEDS: TRAMADOL HCL 50 MG TABLET PO PRN (18:28)
--- NOTE | 2019-01-06 19:48 | Family Medicine Progress Note ---
Addendum entered and electronically signed by Jaime Esparza DO 01/06/19 20: 00: Addendum (Blank) Addendum January 06, 2019 19:59 Second Problem under A&P should list acute diastolic CHF. Will note change tomorrow. Original Note: Date of Service January 06, 2019 Assessment & Plan (1) Right nephrolithiasis: 58 y/o F with PMH CAD (s/p stent 2016), HTN, HLD, DM2, obesity, tobacco abuse (1ppd >40yrs), hypothyroid, nephrolithiasis (stent 2015) presents with R sided lower abd pain radiating into back found to have 5mm obs mid R ureteral stone with mild hydro, perinephric fluid. 1) Obtsructing calculus -urology consult- Pt would benefit from medical optimization of CHF presently. Continue to strain all urine. Pt may pass stone spontaneously, however ureteroscopy, LL may be an option if pain persists. -KUB 01/06- previously noted mid right ureteral calculus is not definitively visualized -cont analgesics, antiemetics, flomax -cont IV rocephin. Urine cx- gram negative bacilli. Sensitivities to follow. 2) CHF -no prior history - received 40mg Lasix in ER -cont I/O, daily weights -Lasix 40 mg if fluid overloaded on exam -ECHO- normal LV size, EF 70-75%, no LVH, elevated L atrial pressure 3) CAD - no evidence of ACS - cont ASA, Plavix, B richardson, Statin, Imdur 4) DM II - placed on a ISS 5) Hypothyroidism - cont Synthroid FULL DVT Prophylaxis: SCDs Dispo: possible ureteroscopy if stone does not pass Supervising Physician Co-Signing Physician Notes I personally examined the patient and verified all kunz points of history and exam, discussed case, and agree with decision making with Dr Esparza. Breathing feels better, no significant stone pain. Echo pending. Vitals noted, in general she is awake and alert no distress. Breathing is unlabored, maybe slightly diminished bibasilar Acute presumed diastolic CHFEcho pending. Improved. Ureterolithiasispain controlled, continue supportive care, hopefully urologic intervention soon. Otherwise as above Subjective 58 F found this AM in bed in NAD. Pt tolerating PO intake. No issues voiding. No issues with ambulation. Pt has no other additional complaints or concerns at present. Review of Systems All systems reviewed & are unremarkable except as noted in HPI & below Physical Exam 2 Vital Signs (Past 24 Hours): Last Vital Signs Temp 36.4 C L 01/06/19 15:56 Pulse 59 L 01/06/19 16:00 Resp 18 01/06/19 15:56 BP 144/67 H 01/06/19 15:56 Pulse Ox 98 01/06/19 15:56 Constitutional: + obese Eyes: PERRL, conjunctivae normal, anicteric sclerae ENMT: external ear and nose normal, oropharynx normal Respiratory: normal respiratory effort, lungs clear to auscultation Cardiovascular: RRR, no murmur, no edema Gastrointestinal (Abdomen): normal bowel sounds, soft, nontender, no hepatosplenomegaly Skin: no rashes, warm and dry Psychiatric: A+Ox3, euthymic affect Lymphatic: no LE edema Results & Data Laboratory Results Laboratory Results - last 24 hr 01/05/19 01/06/19 01/06/19 20:17 07:20 09:18 WBC 19.67 H RBC 4.42 Hgb 13.4 Hct 39.2 MCV 88.7 MCH 30.3 MCHC 34.2 RDW Std Deviation 43.3 RDW Coeff of James 13.3 Plt Count 143 MPV 10.2 Immature Gran % (Auto) 0.3 Neut % (Auto) 84.5 Lymph % (Auto) 9.4 [place] % (Auto) 5.6 Eos % (Auto) 0.1 Baso % (Auto) 0.1 Immature Gran # (Auto) 0.05 H Neut # (Auto) 16.65 H Lymph # (Auto) 1.84 [place] # (Auto) 1.11 H Eos # (Auto) 0.01 Baso # (Auto) 0.01 Sodium Potassium Chloride Carbon Dioxide Anion Gap BUN Creatinine Est Cr Clr Drug Dosing Est GFR ( Amer) Est GFR (Non-Af Amer) BUN/Creatinine Ratio Glucose POC Glucose 171 H 157 H Calcium 01/06/19 01/06/19 01/06/19 09:18 11:13 16:21 WBC RBC Hgb Hct MCV MCH MCHC RDW Std Deviation RDW Coeff of James Plt Count MPV Immature Gran % (Auto) Neut % (Auto) Lymph % (Auto) [place] % (Auto) Eos % (Auto) Baso % (Auto) Immature Gran # (Auto) Neut # (Auto) Lymph # (Auto) [place] # (Auto) Eos # (Auto) Baso # (Auto) Sodium 134 L Potassium 4.2 Chloride 102 Carbon Dioxide 26 Anion Gap 6.0 BUN 20 H D Creatinine 1.17 Est Cr Clr Drug Dosing 53.8 Est GFR ( Amer) 58.7 Est GFR (Non-Af Amer) 50.6 BUN/Creatinine Ratio 17.1 Glucose 139 H POC Glucose 135 H 177 H Calcium 9.6 Medications Administered Current Inpatient Medications Acetaminophen (Tylenol) 650 mg PO Q4H PRN PRN Reason: pain/fever Stop: 02/04/19 18:20 Al Hydrox/Mg Hydrox/Simethicone (Maalox) 30 ml PO Q6H PRN PRN Reason: Dyspepsia Stop: 02/04/19 18:20 Aspirin (Ecotrin Ectab) 81 mg PO DAILY [facility] Stop: 02/05/19 08:59 Last Admin: 01/06/19 08:57 Dose: 81 mg Atorvastatin Calcium (Lipitor) 20 mg PO DAILY [facility] Stop: 02/05/19 08:59 Last Admin: 01/06/19 08:56 Dose: 20 mg Citalopram Hydrobromide (Celexa) 40 mg PO DAILY [facility] Stop: 02/05/19 08:59 Last Admin: 01/06/19 08:56 Dose: 40 mg Clopidogrel Bisulfate (Plavix) 75 mg PO DAILY [facility] Stop: 02/05/19 08:59 Last Admin: 01/06/19 08:57 Dose: 75 mg Gabapentin (Neurontin) 300 mg PO BID [facility] Stop: 02/04/19 20:59 Last Admin: 01/06/19 08:56 Dose: 300 mg Hydromorphone HCl (Dilaudid) 0.5 mg IV Q4H PRN PRN Reason: Pain Stop: 01/19/19 18:20 Last Admin: 01/06/19 08:57 Dose: 0.5 mg Ceftriaxone Sodium (Rocephin) 1,000 mg in 50 mls @ 100 mls/hr IV Q24H [facility] Stop: 01/16/19 17:59 Last Infusion: 01/06/19 18:32 Dose: Infused Isosorbide Mononitrate (Imdur Extended Rel) 60 mg PO BID [facility] Stop: 02/04/19 20:59 Last Admin: 01/06/19 08:56 Dose: 60 mg Levothyroxine Sodium (Synthroid) 25 mcg PO DAILYBB [facility] Stop: 02/05/19 06:29 Last Admin: 01/06/19 06:43 Dose: Not Given Losartan Potassium (Cozaar) 25 mg PO DAILY [facility] Stop: 02/05/19 08:59 Last Admin: 01/06/19 08:57 Dose: 25 mg Magnesium Hydroxide (Milk Of Magnesia) 30 ml PO Q6H PRN PRN Reason: Constipation Stop: 02/04/19 18:20 Metoprolol Tartrate (Lopressor) 50 mg PO PM [facility] Stop: 02/04/19 20:59 Last Admin: 01/05/19 20:23 Dose: 50 mg Metoprolol Tartrate (Lopressor) 100 mg PO QAM [facility] Stop: 02/05/19 08:59 Last Admin: 01/06/19 08:56 Dose: 100 mg Ondansetron HCl (Zofran) 4 mg IV Q6H PRN PRN Reason: Nausea Stop: 02/04/19 18:20 Polyethylene Glycol (Miralax Powder Packet) 17 gm PO DAILY PRN PRN Reason: Constipation Stop: 02/04/19 18:20 Potassium Chloride (Klor-Con M10) 10 meq PO DAILY [facility] Stop: 02/05/19 08:59 Last Admin: 01/06/19 08:56 Dose: 10 meq Tramadol HCl (Ultram) 50 mg PO Q4H PRN PRN Reason: Pain Stop: 02/04/19 18:20 Last Admin: 01/06/19 18:28 Dose: 50 mg Zolpidem Tartrate (Ambien) 5 mg PO HS PRN PRN Reason: Sleep Stop: 02/04/19 18:20 Resident Activity Tracking Resident Involvement: Resident Care Provided Care Provided: Adult Hospital Medicine
[2019-01-06] MEDS: METOPROLOL TARTRATE 50 MG TAB PO SCH (21:09)
[2019-01-06] MEDS ORDERED: CARBOHYDRATES FOR HYPOGLYCEMIA PO PRN (21:31)
[2019-01-06] MEDS ORDERED: GLUCOSE 40% GEL 15 GM TUBE PO PRN (21:31)
[2019-01-06] MEDS ORDERED: DEXTROSE 50% 50 ML SYRINGE IV PRN (21:31)
[2019-01-06] MEDS ORDERED: GLUCOSE 10 TABS/TUBE PO PRN (21:31)
[2019-01-06] MEDS ORDERED: GLUCAGON FOR INJ 1 MG VIAL SQ PRN (21:31)
[2019-01-06] MEDS ORDERED: DC ALL PREVIOUSLY ORDERED DIABETES MEDS ONE (21:31)
[2019-01-06] MEDS ORDERED: INSULIN GLARGINE SOLOSTAR 100 UNITS/ML 3 ML PEN SC SCH (21:45)
[2019-01-06] MEDS: INSULIN ASPART 100 UNITS/ML 3 ML PEN SC SCH (22:15)
[2019-01-07] MEDS: TRAMADOL HCL 50 MG TABLET PO PRN ×3 (03:55→21:28)
[2019-01-07] MEDS ORDERED: CIPROFLOXACIN 400 MG/200 ML BAG IV SCH (06:00)
[2019-01-07] MEDS: LEVOTHYROXINE SODIUM 25 MCG TABLET PO SCH (06:10)
[2019-01-07 06:50] LABS: Basophils # (auto) 0.02 K/uL (0-0.2); Basophils % (auto) 0.2 %; Eosinophils # (auto) 0.07 K/uL (0-0.5); Eosinophils % (auto) 0.6 %; Hematocrit (blood only) 39.5 % (37-47); Hemoglobin 13.4 g/dL (12.0-16.0); Immature Granulocytes # (auto) 0.04 K/uL (0.00-0.02); Immature Granulocytes % (auto) 0.3 %; Lymphocytes # (auto) 3.07 K/uL (1.2-3.4); Mean Corpuscular Hgb Conc 33.9 g/dL (32-36); Mean Corpuscular Volume 88.8 fL (80-100); Mean Platelet Volume 10.4 fL (7.4-10.4); Monocytes # (auto) 0.84 K/uL (0.11-0.59); Monocytes % (auto) 6.8 %; Neutrophils # (auto) 8.23 K/uL (1.4-6.5); Neutrophils % (auto) 67.1 %; Platelet Count 143 K/uL (130-400); RDW Coefficient of Variation 13.3 % (11.5-14.5); Red Blood Count 4.45 M/uL (4.2-5.4); White Blood Count 12.27 K/uL (4.8-10.8)
[2019-01-07 07:27] LABS: Albumin Level 3.4 gm/dl (3.4-5.0); BUN Creatinine Ratio 23.8 (10-20); Calcium 8.9 mg/dl (8.5-10.1); Creatinine Clr Calc Pharmacy 60.4 ml/min; Est GFR (African American) 67.6; Est GFR (Non-African American) 58.4
[2019-01-07 07:30] LABS: Albumin Globulin Ratio 0.9 (0.9-2); Bilirubin,Total 0.3 mg/dl (0.2-1); Globulin 3.9 gm/dl (2.5-4.0); Total Protein 7.3 gm/dl (6.4-8.2)
[2019-01-07] MEDS: INSULIN ASPART 100 UNITS/ML 3 ML PEN SC SCH ×4 (08:00→21:06)
[2019-01-07] MEDS: INSULIN GLARGINE SOLOSTAR 100 UNITS/ML 3 ML PEN SC SCH ×3 (08:01→23:16)
[2019-01-07] MEDS: GABAPENTIN 300 MG CAP PO SCH ×2 (08:02→20:59)
[2019-01-07] MEDS: CITALOPRAM 40 MG TAB PO SCH (08:02)
[2019-01-07] MEDS: CLOPIDOGREL BISULFATE 75 MG TAB PO SCH (08:02)
[2019-01-07] MEDS: POTASSIUM CHLORIDE 10 MEQ TABCR PO SCH (08:02)
[2019-01-07] MEDS: ATORVASTATIN 20 MG TAB PO SCH (08:02)
[2019-01-07] MEDS: LOSARTAN POTASSIUM 25 MG TAB PO SCH (08:02)
[2019-01-07] MEDS: ISOSORBIDE MONO EXTENDED REL 60 MG TABCR PO SCH ×2 (08:03→20:59)
[2019-01-07] MEDS: ASPIRIN 81 MG ECTAB PO SCH (08:03)
[2019-01-07] MEDS: METOPROLOL TARTRATE 100 MG TAB PO SCH (08:03)
--- NOTE | 2019-01-07 08:33 | Urology Progress Note ---
Date of Service January 07, 2019 Assessment & Plan (1) Right nephrolithiasis: 58y with 5 mm obstructing mid right ureteral calculus Please keep NPO, strain all urine. Worsening renal colic today, labs and VSS remain stable. UC&S final grew pansensitive e.coli - sensitive to ceftriaxone. Findings reviewed with patient and Dr. Hopkins. Worsening renal colic in the context of an obstructing renal stone. Covered with IV ceftriaxone as inpatient. Will proceed to OR for urgent cysto, R RPG, stent placement, possible ureteroscopy, laser litho, stone basketing depending on findings. Risks and benefits to be reviewed with patient by Dr. Hopkins. OR notified. Surgery today. Subjective 58yo F with multiple comorbidities, with 5mm obs mid R ureteral stone with mild hydro, perinephric fluid. Pain worsened, despite IV medications she is still very uncomfortable on evaluation today. She did not get much sleep last evening. Some nausea, denies emesis. Denies fevers/chills. VSS,a febrile. Pt off supplemental O2 today, states her breathing is improved. Review of Systems All systems reviewed & are unremarkable except as noted in HPI & below Physical Exam 2 Vital Signs (Past 24 Hours): Last Vital Signs Temp 36.7 C 01/07/19 07:42 Pulse 52 L 01/07/19 07:42 Resp 19 01/07/19 07:42 BP 113/64 01/07/19 07:42 Pulse Ox 94 01/07/19 07:42 Physical Exam: A&Ox3 RRR - some heavy breathing with pain no JVD Abd soft : urine visualized, mosqueda hematuria with clots. No passage of stone. Results & Data Laboratory Results Laboratory Results - last 48 hr 01/05/19 01/05/19 01/05/19 11:30 11:30 11:30 WBC 12.21 H RBC 4.82 Hgb 14.6 Hct 42.9 MCV 89.0 MCH 30.3 MCHC 34.0 RDW Std Deviation 42.6 RDW Coeff of James 13.1 Plt Count 159 MPV 10.0 Immature Gran % (Auto) 0.2 Neut % (Auto) 89.7 Lymph % (Auto) 8.5 [place] % (Auto) 1.0 Eos % (Auto) 0.4 Baso % (Auto) 0.2 Immature Gran # (Auto) 0.03 H Neut # (Auto) 10.95 H Lymph # (Auto) 1.04 L [place] # (Auto) 0.12 Eos # (Auto) 0.05 Baso # (Auto) 0.02 Sodium 135 L Potassium 4.2 Chloride 101 Carbon Dioxide 26 Anion Gap 8.0 BUN 13 Creatinine 1.07 Est Cr Clr Drug Dosing 58.7 Est GFR ( Amer) 65.3 Est GFR (Non-Af Amer) 56.4 BUN/Creatinine Ratio 11.9 Glucose 138 H POC Glucose Calcium 9.7 Total Bilirubin 0.4 AST 19 ALT 33 Alkaline Phosphatase 90 Troponin I < 0.015 Total Protein 8.2 Albumin 3.9 Globulin 4.3 H Albumin/Globulin Ratio 0.9 Lipase 105 Urine Color Urine Appearance Urine pH Ur Specific Carey Urine Protein Urine Glucose (UA) Urine Ketones Urine Blood Urine Nitrite Urine Bilirubin Urine Urobilinogen Ur Leukocyte Esterase Urine WBC (Auto) Urine RBC (Auto) U Hyaline Cast (Auto) U Epithel Cells (Auto) Urine Bacteria (Auto) 01/05/19 01/05/19 01/05/19 13:52 18:07 20:17 WBC RBC Hgb Hct MCV MCH MCHC RDW Std Deviation RDW Coeff of James Plt Count MPV Immature Gran % (Auto) Neut % (Auto) Lymph % (Auto) [place] % (Auto) Eos % (Auto) Baso % (Auto) Immature Gran # (Auto) Neut # (Auto) Lymph # (Auto) [place] # (Auto) Eos # (Auto) Baso # (Auto) Sodium Potassium Chloride Carbon Dioxide Anion Gap BUN Creatinine Est Cr Clr Drug Dosing Est GFR ( Amer) Est GFR (Non-Af Amer) BUN/Creatinine Ratio Glucose POC Glucose 176 H 171 H Calcium Total Bilirubin AST ALT Alkaline Phosphatase Troponin I Total Protein Albumin Globulin Albumin/Globulin Ratio Lipase Urine Color Yellow Urine Appearance Clear Urine pH 5.0 Ur Specific Carey > 1.045 H Urine Protein Negative Urine Glucose (UA) Negative Urine Ketones Negative Urine Blood 3+ H Urine Nitrite Negative Urine Bilirubin Negative Urine Urobilinogen Negative Ur Leukocyte Esterase 1+ H Urine WBC (Auto) >30 H Urine RBC (Auto) 10-30 H U Hyaline Cast (Auto) 1-5 U Epithel Cells (Auto) 5-10 H Urine Bacteria (Auto) Negative 01/06/19 01/06/19 01/06/19 07:20 09:18 09:18 WBC 19.67 H RBC 4.42 Hgb 13.4 Hct 39.2 MCV 88.7 MCH 30.3 MCHC 34.2 RDW Std Deviation 43.3 RDW Coeff of James 13.3 Plt Count 143 MPV 10.2 Immature Gran % (Auto) 0.3 Neut % (Auto) 84.5 Lymph % (Auto) 9.4 [place] % (Auto) 5.6 Eos % (Auto) 0.1 Baso % (Auto) 0.1 Immature Gran # (Auto) 0.05 H Neut # (Auto) 16.65 H Lymph # (Auto) 1.84 [place] # (Auto) 1.11 H Eos # (Auto) 0.01 Baso # (Auto) 0.01 Sodium 134 L Potassium 4.2 Chloride 102 Carbon Dioxide 26 Anion Gap 6.0 BUN 20 H D Creatinine 1.17 Est Cr Clr Drug Dosing 53.8 Est GFR ( Amer) 58.7 Est GFR (Non-Af Amer) 50.6 BUN/Creatinine Ratio 17.1 Glucose 139 H POC Glucose 157 H Calcium 9.6 Total Bilirubin AST ALT Alkaline Phosphatase Troponin I Total Protein Albumin Globulin Albumin/Globulin Ratio Lipase Urine Color Urine Appearance Urine pH Ur Specific Carey Urine Protein Urine Glucose (UA) Urine Ketones Urine Blood Urine Nitrite Urine Bilirubin Urine Urobilinogen Ur Leukocyte Esterase Urine WBC (Auto) Urine RBC (Auto) U Hyaline Cast (Auto) U Epithel Cells (Auto) Urine Bacteria (Auto) 01/06/19 01/06/19 01/06/19 11:13 16:21 20:43 WBC RBC Hgb Hct MCV MCH MCHC RDW Std Deviation RDW Coeff of James Plt Count MPV Immature Gran % (Auto) Neut % (Auto) Lymph % (Auto) [place] % (Auto) Eos % (Auto) Baso % (Auto) Immature Gran # (Auto) Neut # (Auto) Lymph # (Auto) [place] # (Auto) Eos # (Auto) Baso # (Auto) Sodium Potassium Chloride Carbon Dioxide Anion Gap BUN Creatinine Est Cr Clr Drug Dosing Est GFR ( Amer) Est GFR (Non-Af Amer) BUN/Creatinine Ratio Glucose POC Glucose 135 H 177 H 155 H Calcium Total Bilirubin AST ALT Alkaline Phosphatase Troponin I Total Protein Albumin Globulin Albumin/Globulin Ratio Lipase Urine Color Urine Appearance Urine pH Ur Specific Carey Urine Protein Urine Glucose (UA) Urine Ketones Urine Blood Urine Nitrite Urine Bilirubin Urine Urobilinogen Ur Leukocyte Esterase Urine WBC (Auto) Urine RBC (Auto) U Hyaline Cast (Auto) U Epithel Cells (Auto) Urine Bacteria (Auto) 01/07/19 01/07/19 01/07/19 06:18 06:18 07:15 WBC 12.27 H RBC 4.45 Hgb 13.4 Hct 39.5 MCV 88.8 MCH 30.1 MCHC 33.9 RDW Std Deviation 43.0 RDW Coeff of James 13.3 Plt Count 143 MPV 10.4 Immature Gran % (Auto) 0.3 Neut % (Auto) 67.1 Lymph % (Auto) 25.0 [place] % (Auto) 6.8 Eos % (Auto) 0.6 Baso % (Auto) 0.2 Immature Gran # (Auto) 0.04 H Neut # (Auto) 8.23 H Lymph # (Auto) 3.07 [place] # (Auto) 0.84 H Eos # (Auto) 0.07 Baso # (Auto) 0.02 Sodium 138 Potassium 4.0 Chloride 106 Carbon Dioxide 25 Anion Gap 7.0 BUN 25 H Creatinine 1.04 Est Cr Clr Drug Dosing 60.4 Est GFR ( Amer) 67.6 Est GFR (Non-Af Amer) 58.4 BUN/Creatinine Ratio 23.8 H Glucose 89 POC Glucose 89 Calcium 8.9 Total Bilirubin 0.3 AST 11 L ALT 22 Alkaline Phosphatase 69 Troponin I Total Protein 7.3 Albumin 3.4 Globulin 3.9 Albumin/Globulin Ratio 0.9 Lipase Urine Color Urine Appearance Urine pH Ur Specific Carey Urine Protein Urine Glucose (UA) Urine Ketones Urine Blood Urine Nitrite Urine Bilirubin Urine Urobilinogen Ur Leukocyte Esterase Urine WBC (Auto) Urine RBC (Auto) U Hyaline Cast (Auto) U Epithel Cells (Auto) Urine Bacteria (Auto)
--- NOTE | 2019-01-07 08:54 | Cardiology Consultation ---
Date of Consultation January 07, 2019 Assessment & Plan (1) Acute diastolic (congestive) heart failure: 2. Multivessel CAD 3. Urolithiasis 4. type 2 DM Mild acute heart failure noted on presentation now post IV lasix x1. Negative 2L Suspect decompensation likely triggered by current acute illness in the setting of chronic diastolic dysfunction. Today patient well perfused and appears euvolemic. Recommendations: - No need for additional diuretics at present. Discussed home management including daily weights, salt restriction and would recommend PRN lasix 20mg on discharge - Continue DAPT with ASA/Clopidogrel -- clopidogrel could be held as necessary if needs urologic procedures. - Continue home antihypertensive therapy and statin. History of Present Illness Attending Physician: Fran Jaramillo DO History of Present Illness Ms. Burch is a 58-year-old woman with a history of severe coronary artery disease status post prior MIs and multiple prior PCIs to her RCA, diabetes, hypertension, hyperlipidemia, and recurrent nephrolithiasis status post multiple ureteral stents again admitted with right sided abdominal pain in the setting of RT 5 mm obstructing mid right ureteral stone. Upon arrival patient midly hypoxic although not short of breath. CXR showing pulmonary edema. Received 1 dose IV lasix 40 mg afternoon of 01/05/2019. Trop negative x1. ECG sinus, unremarkable. Echo showed normal LV function without regional wall motion abnormalities. Evidence elevated filling pressures. Since admission negative 2L on recorded I/Os. Weight unchanged. Denies shortness of breath or chest pain. Tele reviewed sinus rhythm in 50-60s. Still with intermittent right flank pain. Past Cardiac History: Majority of care in [place], [place] and [facility]. Her initial NE was in 2000 when patient was 39 years old. At that time underwent PCI with bare metal stent to her RCA. Per patient 6 months later had restenoses and underwent a repeat attempt PCI which was complicated by VF arrest. Patient was again treated with multiple stents. She went on to develop recurrent restenoses multiple times and at some point was treated with brachytherapy as well as recurrent stenting. In total patient states she has 9 stents with last PCI in 2008. Cardiac cath in September 2010 showed her LAD to have 40 percent vyxi-dp-[id number] stenosis, circumflex with mild luminal regularities and right coronary artery that was fully stented with ostial 90-99 percent stenosis as well as 99 percent distal In-stent restenosis inside the most recently placed drug-eluting stent, medical management. Repeat cardiac catheterization in May 2017 at [facility] showed chronically occluded ostial RCA with [id number] collaterals and only [id number] LAD disease. Allergies Allergy/AdvReac Type Severity Reaction Status Date / Time amlodipine Allergy Unknown UNKNOWN Unverified 01/05/19 13:58 REACTION niacin Allergy Unknown Gastrointestinal Unverified 01/05/19 13:58 Upset Home Medications Home Medications Medication Instructions Recorded Confirmed Type aspirin [Aspir-Low] 81 mg PO DAILY 01/05/19 01/05/19 History atorvastatin 20 mg PO DAILY 01/05/19 01/05/19 History citalopram 40 mg PO DAILY 01/05/19 01/05/19 History clopidogrel 75 mg PO DAILY 01/05/19 01/05/19 History gabapentin 300 mg PO BID 01/05/19 01/05/19 History glipizide 5 mg PO DAILY 01/05/19 01/05/19 History isosorbide mononitrate 60 mg PO BID 01/05/19 01/05/19 History levothyroxine 25 mcg PO DAILY 01/05/19 01/05/19 History losartan 25 mg PO DAILY 01/05/19 01/05/19 History metformin 1,000 mg PO PM 01/05/19 01/05/19 History metoprolol tartrate 50 mg PO PM 01/05/19 01/05/19 History metoprolol tartrate 100 mg PO QAM 01/05/19 01/05/19 History potassium chloride 10 meq PO DAILY 01/05/19 01/05/19 History Patient History Medical History Kidney stones Social History Current Living Situation: Family Current Living Situation Comment: lives with sister Other Information That Helps Us Care for You: Yes (patient cared for mother, now no place to live, need to sell house) Feels Safe at Home: Yes Safety Concerns: Feels Safe At This Time Smoking Status: Current every day smoker Tobacco Type: cigarettes Cigarettes per Day: 20 Do You Dip or Chew Tobacco: No Second Hand Exposure: No Tobacco Cessation Education Requested by Patient: No Hx Alcohol Use: No Hx Substance Use: No Beliefs That Will Affect Care: None Preferred Language: Jordanian Communication Ability: Effective Vice President Compliance Required: No Review of Systems Constitutional: as per Subjective / HPI Physical Exam 2 Vital Signs (Past 24 Hours): Last Vital Signs Temp 36.7 C 01/07/19 07:42 Pulse 52 L 01/07/19 07:42 Resp 19 01/07/19 07:42 BP 113/64 01/07/19 07:42 Pulse Ox 94 01/07/19 07:42 Constitutional: WD/WN, vitals as above Eyes: + anicteric sclerae Neck: trachea midline, no thyromegaly Respiratory: normal respiratory effort, lungs clear to auscultation Cardiovascular: Rate/Rhythm: regular rhythm; + abnormal rate (bradycardic) Heart Sounds: no murmur Vessels: no JVD Extremities: normal capillary refill; no edema Gastrointestinal (Abdomen): Inspection/Auscultation: normal bowel sounds Percussion/Palpation: abdomen nontender Skin: no rashes, warm and dry Neurologic: moves all extremities Psychiatric: A+Ox3, euthymic affect
--- NOTE | 2019-01-07 09:14 | Family Medicine Progress Note ---
Date of Service January 07, 2019 Assessment & Plan (1) Right nephrolithiasis: 58 y/o F with PMH CAD (s/p stent 2017), HTN, HLD, DM2, obesity, tobacco abuse (1ppd >40yrs), hypothyroid, nephrolithiasis (stent 2016) presents with R sided lower abd pain radiating into back found to have 5mm obs mid R ureteral stone with mild hydro, perinephric fluid. 1) Obtsructing calculus -01/07 Cystoscopy, Right Ureteroscopy, Right Stent Placement -KUB 01/06- previously noted mid right ureteral calculus is not definitively visualized -cont analgesics, antiemetics, flomax -cont IV rocephin. Urine cx- E. Coli, pansensitive 2) CHF -no prior history - received 40mg Lasix in ER -cont I/O, daily weights -Lasix 20 mg if fluid overloaded on exam -ECHO- normal LV size, EF 70-75%, no LVH, elevated L atrial pressure -Cardiology: Recommend home management including daily weights, salt restriction and PRN lasix 20mg on d/c 3) CAD - no evidence of ACS - cont ASA, Plavix, B richardson, Statin, Imdur 4) DM II - placed on a ISS 5) Hypothyroidism - cont Synthroid FULL DVT Prophylaxis: SCDs Dispo: med/surg, d/c tomorrow Supervising Physician Co-Signing Physician Notes I personally examined the patient and verified all kunz points of history and exam, discussed case, and agree with decision making with Dr Esparza. Feeling better, just post anesthesia and somewhat groggy. Breathing feels better. Discussed with urology, stenting went well. Vitals noted, in general she is awake and alert pleasant no distress. HEENT normocephalic atraumatic mucous members are moist. Breathing is unlabored no accessory muscle use good effort. Skin shows no rashes no pallor or icterus. Acute on chronic diastolic CHFimproved. Ureterolithiasisimproved status post stenting Stable for MedSurg night, hopefully home tomorrow. Subjective 58 F found this AM in bed in NAD. Pt NPO at present. Pt has noticed 'clots' in urine. Renal colic pain. No issues with ambulation. Pt has no other additional complaints or concerns at present. Pt ok with plan for sx today. Physical Exam 2 Vital Signs (Past 24 Hours): Last Vital Signs Temp 36.7 C 01/07/19 07:42 Pulse 52 L 01/07/19 07:42 Resp 19 01/07/19 07:42 BP 113/64 01/07/19 07:42 Pulse Ox 94 01/07/19 07:42 Constitutional: + obese Eyes: PERRL, conjunctivae normal, anicteric sclerae ENMT: external ear and nose normal, oropharynx normal Respiratory: normal respiratory effort, lungs clear to auscultation Cardiovascular: RRR, no murmur, no edema Gastrointestinal (Abdomen): normal bowel sounds, soft, nontender, no hepatosplenomegaly Musculoskeletal: renal colic R Skin: no rashes, warm and dry Psychiatric: A+Ox3, euthymic affect Lymphatic: no LE edema Results & Data Laboratory Results Laboratory Results - last 24 hr 01/06/19 01/06/19 01/06/19 09:18 09:18 11:13 WBC 19.67 H RBC 4.42 Hgb 13.4 Hct 39.2 MCV 88.7 MCH 30.3 MCHC 34.2 RDW Std Deviation 43.3 RDW Coeff of James 13.3 Plt Count 143 MPV 10.2 Immature Gran % (Auto) 0.3 Neut % (Auto) 84.5 Lymph % (Auto) 9.4 Emmet % (Auto) 5.6 Eos % (Auto) 0.1 Baso % (Auto) 0.1 Immature Gran # (Auto) 0.05 H Neut # (Auto) 16.65 H Lymph # (Auto) 1.84 Emmet # (Auto) 1.11 H Eos # (Auto) 0.01 Baso # (Auto) 0.01 Sodium 134 L Potassium 4.2 Chloride 102 Carbon Dioxide 26 Anion Gap 6.0 BUN 20 H D Creatinine 1.17 Est Cr Clr Drug Dosing 53.8 Est GFR ( Amer) 58.7 Est GFR (Non-Af Amer) 50.6 BUN/Creatinine Ratio 17.1 Glucose 139 H POC Glucose 135 H Calcium 9.6 Total Bilirubin AST ALT Alkaline Phosphatase Total Protein Albumin Globulin Albumin/Globulin Ratio 01/06/19 01/06/19 01/07/19 16:21 20:43 06:18 WBC 12.27 H RBC 4.45 Hgb 13.4 Hct 39.5 MCV 88.8 MCH 30.1 MCHC 33.9 RDW Std Deviation 43.0 RDW Coeff of James 13.3 Plt Count 143 MPV 10.4 Immature Gran % (Auto) 0.3 Neut % (Auto) 67.1 Lymph % (Auto) 25.0 Emmet % (Auto) 6.8 Eos % (Auto) 0.6 Baso % (Auto) 0.2 Immature Gran # (Auto) 0.04 H Neut # (Auto) 8.23 H Lymph # (Auto) 3.07 Emmet # (Auto) 0.84 H Eos # (Auto) 0.07 Baso # (Auto) 0.02 Sodium Potassium Chloride Carbon Dioxide Anion Gap BUN Creatinine Est Cr Clr Drug Dosing Est GFR ( Amer) Est GFR (Non-Af Amer) BUN/Creatinine Ratio Glucose POC Glucose 177 H 155 H Calcium Total Bilirubin AST ALT Alkaline Phosphatase Total Protein Albumin Globulin Albumin/Globulin Ratio 01/07/19 01/07/19 06:18 07:15 WBC RBC Hgb Hct MCV MCH MCHC RDW Std Deviation RDW Coeff of James Plt Count MPV Immature Gran % (Auto) Neut % (Auto) Lymph % (Auto) Emmet % (Auto) Eos % (Auto) Baso % (Auto) Immature Gran # (Auto) Neut # (Auto) Lymph # (Auto) Emmet # (Auto) Eos # (Auto) Baso # (Auto) Sodium 138 Potassium 4.0 Chloride 106 Carbon Dioxide 25 Anion Gap 7.0 BUN 25 H Creatinine 1.04 Est Cr Clr Drug Dosing 60.4 Est GFR ( Amer) 67.6 Est GFR (Non-Af Amer) 58.4 BUN/Creatinine Ratio 23.8 H Glucose 89 POC Glucose 89 Calcium 8.9 Total Bilirubin 0.3 AST 11 L ALT 22 Alkaline Phosphatase 69 Total Protein 7.3 Albumin 3.4 Globulin 3.9 Albumin/Globulin Ratio 0.9 Medications Administered Current Inpatient Medications Acetaminophen (Tylenol) 650 mg PO Q4H PRN PRN Reason: pain/fever Stop: 02/04/19 18:20 Al Hydrox/Mg Hydrox/Simethicone (Maalox) 30 ml PO Q6H PRN PRN Reason: Dyspepsia Stop: 02/04/19 18:20 Aspirin (Ecotrin Ectab) 81 mg PO DAILY MARISA Stop: 02/05/19 08:59 Last Admin: 01/07/19 08:03 Dose: 81 mg Atorvastatin Calcium (Lipitor) 20 mg PO DAILY MARISA Stop: 02/05/19 08:59 Last Admin: 01/07/19 08:02 Dose: 20 mg Citalopram Hydrobromide (Celexa) 40 mg PO DAILY MARISA Stop: 02/05/19 08:59 Last Admin: 01/07/19 08:02 Dose: 40 mg Clopidogrel Bisulfate (Plavix) 75 mg PO DAILY MARISA Stop: 02/05/19 08:59 Last Admin: 01/07/19 08:02 Dose: 75 mg Dextrose (Dextrose 50%) 25 - 50 ml IV UD PRN; Protocol PRN Reason: Hypoglycemia Protocol Stop: 02/05/19 21:30 Gabapentin (Neurontin) 300 mg PO BID MARISA Stop: 02/04/19 20:59 Last Admin: 01/07/19 08:02 Dose: 300 mg Glucagon (Glucagen) 1 mg SQ UD PRN; Protocol PRN Reason: Hypoglycemia Protocol Stop: 02/05/19 21:30 Glucose (Glucose 40%) 15 - 30 gm PO UD PRN; Protocol PRN Reason: Hypoglycemia Protocol Stop: 02/05/19 21:30 Glucose (Dex4 Glucose) 4 - 8 tabs PO UD PRN; Protocol PRN Reason: Hypoglycemia Protocol Stop: 02/05/19 21:30 Hydromorphone HCl (Dilaudid) 0.5 mg IV Q4H PRN PRN Reason: Pain Stop: 01/19/19 18:20 Last Admin: 01/06/19 21:33 Dose: 0.5 mg Ceftriaxone Sodium (Rocephin) 1,000 mg in 50 mls @ 100 mls/hr IV Q24H MARISA Stop: 01/16/19 17:59 Last Infusion: 01/06/19 18:32 Dose: Infused Insulin Aspart (Novolog Flexpen) 0 units SC ACHS MARISA Stop: 02/05/19 21:49 Last Admin: 01/07/19 08:00 Dose: Not Given Insulin Glargine (Lantus Solostar Pen) 17 units SC Q12 MARISA Stop: 02/06/19 08:59 Last Admin: 01/07/19 08:01 Dose: 17 units Isosorbide Mononitrate (Imdur Extended Rel) 60 mg PO BID [facility] Stop: 02/04/19 20:59 Last Admin: 01/07/19 08:03 Dose: 60 mg Levothyroxine Sodium (Synthroid) 25 mcg PO DAILYBB [facility] Stop: 02/05/19 06:29 Last Admin: 01/07/19 06:10 Dose: 25 mcg Losartan Potassium (Cozaar) 25 mg PO DAILY MARISA Stop: 02/05/19 08:59 Last Admin: 01/07/19 08:02 Dose: 25 mg Magnesium Hydroxide (Milk Of Magnesia) 30 ml PO Q6H PRN PRN Reason: Constipation Stop: 02/04/19 18:20 Metoprolol Tartrate (Lopressor) 50 mg PO PM MARISA Stop: 02/04/19 20:59 Last Admin: 01/06/19 21:09 Dose: 50 mg Metoprolol Tartrate (Lopressor) 100 mg PO QAM [facility] Stop: 02/05/19 08:59 Last Admin: 01/07/19 08:03 Dose: 100 mg Miscellaneous (Carbohydrates For Hypoglycemia) 15 - 30 gm PO UD PRN PRN Reason: Hypoglycemia Treatment Stop: 02/05/19 21:30 Ondansetron HCl (Zofran) 4 mg IV Q6H PRN PRN Reason: Nausea Stop: 02/04/19 18:20 Polyethylene Glycol (Miralax Powder Packet) 17 gm PO DAILY PRN PRN Reason: Constipation Stop: 02/04/19 18:20 Potassium Chloride (Klor-Con M10) 10 meq PO DAILY MARISA Stop: 02/05/19 08:59 Last Admin: 01/07/19 08:02 Dose: 10 meq Tramadol HCl (Ultram) 50 mg PO Q4H PRN PRN Reason: Pain Stop: 02/04/19 18:20 Last Admin: 01/07/19 08:20 Dose: 50 mg Zolpidem Tartrate (Ambien) 5 mg PO HS PRN PRN Reason: Sleep Stop: 02/04/19 18:20 Resident Activity Tracking Resident Involvement: Resident Care Provided Care Provided: Adult Hospital Medicine
[2019-01-07 09:35] LABS: Estimated Average Glucose 160 mg/dl; Hemoglobin A1C 7.2 % (4.5-5.6)
[2019-01-07] MEDS ORDERED: MIDAZOLAM HCL 1 MG/ML 2ML VIAL ONE (14:33)
[2019-01-07] MEDS ORDERED: fentaNYL citrate 100 MCG/2 ML VIAL ONE (14:33)
[2019-01-07] MEDS ORDERED: DEXTROSE 50% 50 ML SYRINGE IV PRN (14:38)
[2019-01-07] MEDS ORDERED: DEXTROSE 50% 50 ML SYRINGE IV ONE (14:45)
[2019-01-07] MEDS ORDERED: IOTHALAMATE MEGLUMINE II 17.2% 250 ML VIAL ONE (14:52)
[2019-01-07] MEDS ORDERED: CIPROFLOXACIN 400MG / 200ML D5W IV ONE (14:54)
--- NOTE | 2019-01-07 15:07 | Anesthesiology Consultation ---
Date of Service January 07, 2019 Assessment & Plan Chart Review Chart Review: Acceptable Risk for Surgery and Patient NOT seen in Pre Admission Testing Consults Requested none ASA ASA4 Proposed Anesthesia Anesthesia Type: General Risk / Benefits Reviewed With: PT / POA / Parent / Guardian, Accepts Plan and Informed Consent Obtained NPO Date Last Intake of Fluids: 01/06/19 Time Last Intake of Fluids: 22:00 Date Last Intake of Solids: 01/06/19 Time Last Intake of Solids: 22:00 History Surgery Operation Date: 01/07/19 11:00 Proposed Procedures p Cystoscopy, Retrograde Pyelogram, Laser Lithotrispy, Ureteroscopy, Right Stent Placement - Rufus Hopkins MD Height/Weight Height: 5 ft Weight: 98 kg Allergies Allergy/AdvReac Type Severity Reaction Status Date / Time amlodipine Allergy Unknown UNKNOWN Unverified 01/05/19 13:58 REACTION niacin Allergy Unknown Gastrointestinal Unverified 01/05/19 13:58 Upset Medications Home Medications Medication Instructions Recorded Confirmed Last Taken aspirin [Aspir-Low] 81 mg PO DAILY 01/05/19 01/05/19 Unknown atorvastatin 20 mg PO DAILY 01/05/19 01/05/19 Unknown citalopram 40 mg PO DAILY 01/05/19 01/05/19 Unknown clopidogrel 75 mg PO DAILY 01/05/19 01/05/19 Unknown gabapentin 300 mg PO BID 01/05/19 01/05/19 Unknown glipizide 5 mg PO DAILY 01/05/19 01/05/19 Unknown isosorbide mononitrate 60 mg PO BID 01/05/19 01/05/19 Unknown levothyroxine 25 mcg PO DAILY 01/05/19 01/05/19 Unknown losartan 25 mg PO DAILY 01/05/19 01/05/19 Unknown metformin 1,000 mg PO PM 01/05/19 01/05/19 Unknown metoprolol tartrate 50 mg PO PM 01/05/19 01/05/19 Unknown metoprolol tartrate 100 mg PO QAM 01/05/19 01/05/19 Unknown potassium chloride 10 meq PO DAILY 01/05/19 01/05/19 Unknown Active Medications Generic Name Dose Route Start Last Admin Trade Name Freq PRN Reason Stop Dose Admin Aspirin 81 mg 01/06/19 09:00 01/07/19 08:03 Ecotrin Ectab PO 02/05/19 08:59 81 mg DAILY MARISA Administration Atorvastatin Calcium 20 mg 01/06/19 09:00 01/07/19 08:02 Lipitor PO 02/05/19 08:59 20 mg DAILY MARISA Administration Citalopram Hydrobromide 40 mg 01/06/19 09:00 01/07/19 08:02 Celexa PO 02/05/19 08:59 40 mg DAILY MARISA Administration Clopidogrel Bisulfate 75 mg 01/06/19 09:00 01/07/19 08:02 Plavix PO 02/05/19 08:59 75 mg DAILY MARISA Administration Gabapentin 300 mg 01/05/19 21:00 01/07/19 08:02 Neurontin PO 02/04/19 20:59 300 mg BID MARISA Administration Hydromorphone HCl 0.5 mg 01/05/19 18:21 01/06/19 21:33 Dilaudid IV 01/19/19 18:20 0.5 mg Q4H PRN Administration Pain Ceftriaxone Sodium 1,000 mg in 50 mls @ 100 mls/hr 01/06/19 18:00 01/06/19 18 :32 Rocephin IV 01/16/19 17:59 Infused Q24H MARISA Infusion Insulin Aspart 0 units 01/06/19 21:50 01/07/19 12:01 Novolog Flexpen SC 02/05/19 21:49 Not Given ACHS [facility] Insulin Glargine 17 units 01/07/19 09:00 01/07/19 08:01 Lantus Solostar Pen SC 02/06/19 08:59 17 units Q12 MARISA Administration Isosorbide Mononitrate 60 mg 01/05/19 21:00 01/07/19 08:03 Imdur Extended Rel PO 02/04/19 20:59 60 mg BID MARISA Administration Levothyroxine Sodium 25 mcg 01/06/19 06:30 01/07/19 06:10 Synthroid PO 02/05/19 06:29 25 mcg DAILYBB MARISA Administration Losartan Potassium 25 mg 01/06/19 09:00 01/07/19 08:02 Cozaar PO 02/05/19 08:59 25 mg DAILY MARISA Administration Metoprolol Tartrate 50 mg 01/05/19 21:00 01/06/19 21:09 Lopressor PO 02/04/19 20:59 50 mg PM MARISA Administration Metoprolol Tartrate 100 mg 01/06/19 09:00 01/07/19 08:03 Lopressor PO 02/05/19 08:59 100 mg QAM MARISA Administration Potassium Chloride 10 meq 01/06/19 09:00 01/07/19 08:02 Klor-Con M10 PO 02/05/19 08:59 10 meq DAILY MARISA Administration Tramadol HCl 50 mg 01/05/19 18:21 01/07/19 08:20 Ultram PO 02/04/19 18:20 50 mg Q4H PRN Administration Pain Past Medical History Medical History CAD (coronary artery disease) CHF (congestive heart failure) COPD (chronic obstructive pulmonary disease) Dyslipidemia HTN (hypertension) Hypothyroid IDDM (insulin dependent diabetes mellitus) Kidney stones PVD (peripheral vascular disease) Past Anesthesia History No Hx of Anesthesia Complications and No Family Hx of Anesthesia Complications History of PONV No Motion Sickness Screening History of Motion Sickness: No Social History Smoking Status: Current every day smoker tobacco type: cigarettes Smoking cigarettes per day: 20 Do You Dip or Chew Tobacco: No Hx Alcohol Use: No Hx Substance Use: No substance use type: does not use Exercise / Class Metabolic Activity III < 4 Walking/Shop/Light housework Physical Exam Vital Signs Last Vital Signs Temp 36.4 C L 01/07/19 14:25 Pulse 54 L 01/07/19 14:25 Resp 18 01/07/19 14:25 BP 145/71 H 01/07/19 14:25 Pulse Ox 95 01/07/19 14:25 ENMT Mouth: + poor dentition Thyromental Distance: > or= 3.5 Finger Breadths Mallampati Class: II Neck normal visual inspection and trachea midline; neck extension not limited Respiratory normal respiratory effort Auscultation: lungs clear to auscultation bilaterally Cardiovascular Rate/Rhythm: regular rate and regular rhythm Heart Sounds: no murmur Vessels: no carotid bruit Neurologic moves all extremities Motor/Sensory: no sensory deficit Psychiatric Orientation: alert and oriented x 3 Testing Laboratory Results 01/07/19 06:18 01/07/19 06:18 Hemoglobin A1c 7.2 % (4.5-5.6) H 01/07/19 06:18 Urine Color Yellow 01/05/19 13:52 Urine Appearance Clear (Clear) 01/05/19 13:52 Urine pH 5.0 (4.5-7.5) 01/05/19 13:52 Ur Specific [place] > 1.045 (1.000-1.030) H 01/05/19 13:52 Urine Protein Negative (Negative) 01/05/19 13:52 Urine Glucose (UA) Negative (Negative) 01/05/19 13:52 Urine Ketones Negative (Negative) 01/05/19 13:52 Urine Nitrite Negative (Negative) 01/05/19 13:52 Ur Leukocyte Esterase 1+ (Negative) H 01/05/19 13:52 Urine WBC (Auto) >30 /hpf (0-5) H 01/05/19 13:52 Urine RBC (Auto) 10-30 /hpf (0-4) H 01/05/19 13:52 U Hyaline Cast (Auto) 1-5 /lpf (0-5) 01/05/19 13:52 U Epithel Cells (Auto) 5-10 /lpf (0-5) H 01/05/19 13:52 Urine Bacteria (Auto) Negative (Negative) 01/05/19 13:52 01/05/19 13:52 Urine Culture - Final Urine,Clean Catch Escherichia coli 01/07/19 01/07/19 01/07/19 14:29 11:19 07:15 POC Glucose 76 83 89
[2019-01-07] MEDS ORDERED: SUCCINYLCHOLINE 100MG/5ML SYR ONE (15:31)
[2019-01-07] MEDS ORDERED: PROPOFOL IV EMULSION 10 MG/ML 20 ML VIAL IV ONE (15:31)
[2019-01-07] MEDS ORDERED: ONDANSETRON INJ 2 MG/ML 2 ML VIAL ONE (15:31)
[2019-01-07] MEDS ORDERED: LIDOCAINE HCL 2% 2 ML VIAL/AMP(20MG/ML) INFIL ONE (15:31)
--- NOTE | 2019-01-07 15:45 | Operative Report ---
Post Operative Report Pre & Post Diagnosis Operation Date: 01/07/19 11:00 Pre-Op Diagnosis: obstructing right ureteral calculus Post-Op Diagnosis: obstructing right ureteral calculus Procedure Operation Date: 01/07/19 11:00 Actual Procedures p Cystoscopy, Right Ureteroscopy, Right Stent Placement(Right) - Rufus Hopkins MD Surgeon Star Hopkins MD Jack Winder none Estimated Blood Loss 0 Findings Consistent with Post-Op Diagnosis Specimens none Description of Procedure Patient was identified in the preoperative holding area, appropriate informed consents reviewed and completed and the patient was transferred to the operating suite. Upon arrival she received appropriate preoperative antibiotics in the form of ciprofloxacin. Of note, she additionally received a dose of Rocephin last evening on the floor and remains in the 24-hour treatment dose time period. She did have a positive preoperative culture but has been maintained on antibiotics for greater than 24 hours prior to the surgery. Upon arrival, general anesthesia anesthesia was achieved, and she was intubated. Placed her in dorsal lithotomy position and sterilely prepped and draped in standard fashion. To begin the case, I passed a 22 [place] cystoscope and 30 degree lens. Inspection of the bladder revealed bloody urine with no mucosal abnormalities. I turned my attention to the right ureteral orifice and cannulated with a sensor wire with out difficulty. I elected to pass a semirigid ureteroscope alongside the wire. This advanced through the ureter in the mid ureter we encountered significant evidence of inflammation, but no stone. Fluoroscopic evaluation also did not reveal a stone in the ureter nor the kidney. I suspect that the stone may have been placed retrograde by the wire. Having scope with a full ureter and failed to visualize a stone, I elected to conclude the case by placing a stent. She is relatively unhealthy at baseline and likely has some pneumonia/CHF I felt that flexible ureteroscopy was beyond the appropriate treatment course for today. Instead I placed a 6 [place] by 24 cm double-J ureteral stent seeing a good curl in the kidney as well as the bladder. The bladder was decompressed and the case concluded. She was extubated and taken to the PACU in stable condition. I attest to the content of the Intraoperative Record and any orders documented therein. Any exceptions are noted below.
[2019-01-07] MEDS ORDERED: ONDANSETRON INJ 2 MG/ML 2 ML VIAL IV PRN (15:57)
[2019-01-07] MEDS ORDERED: LABETALOL HCL IV 5 MG/ML 20ML IV PRN (15:57)
[2019-01-07] MEDS ORDERED: PROMETHAZINE HCL 12.5 MG in SODIUM CHLORIDE 0.9% 50 ML IV PRN (15:57)
[2019-01-07] MEDS ORDERED: NALOXONE HCL 0.4 MG/1 ML VIAL/CARP IV PRN (15:57)
[2019-01-07] MEDS ORDERED: ATROPINE SULFATE 0.1 MG/ML 10ML SYR IV PRN (15:57)
[2019-01-07] MEDS ORDERED: ePHEDrine sulfate 50 MG/ML AMP IV PRN (15:57)
[2019-01-07] MEDS ORDERED: ALBUTEROL 0.083% NEBU SOLN 3 ML VIAL INH PRN (15:57)
--- NOTE | 2019-01-07 16:09 | Fluoroscopy Report ---
INTRAOPERATIVE RADIOGRAPH CLINICAL HISTORY: Right-sided laser lithotripsy and ureteral stent placement. Fluoroscopy time: 4 seconds. FINDINGS: A single spot fluoroscopic view of the right upper quadrant from a urologic procedure is pr esented. The proximal end of a right ureteral stent is identified. The tip is coiled over the right r enal pelvis. There is no evidence of calcification along the proximal aspect of the stent. IMPRESSION: Intraoperative image from right ureteral stent placement as above. Electronically signed by: Abraham Marquez M.D. 01/07/2019 4:08 PM
--- NOTE | 2019-01-07 16:48 | Anesthesiology Progress Note ---
Date of Service January 07, 2019 Anesthesia Post Procedure Vital Signs Vital Signs: Temp Pulse Pulse Pulse Resp BP BP 01/07/19 16:40 60 18 119/52 L 01/07/19 16:35 57 L 18 01/07/19 16:30 36.3 C L 57 L 18 107/45 L 01/07/19 16:20 57 L 18 125/60 01/07/19 16:10 57 L 18 132/68 01/07/19 16:00 60 18 136/69 01/07/19 15:53 36.0 C L 62 18 157/72 H 01/07/19 14:25 36.4 C L 54 L 18 145/71 H 01/07/19 11:38 36.7 C 51 L 19 112/68 01/07/19 09:15 65 01/07/19 07:42 36.7 C 52 L 19 113/64 01/07/19 03:50 36.7 C 57 L 18 117/65 01/06/19 23:39 36.5 C 58 L 18 107/58 L 01/06/19 23:30 55 L 01/06/19 19:21 36.6 C 60 18 122/68 Pulse Ox 01/07/19 16:40 94 01/07/19 16:35 98 01/07/19 16:30 99 01/07/19 16:20 99 01/07/19 16:10 99 01/07/19 16:00 96 01/07/19 15:53 94 01/07/19 14:25 95 01/07/19 11:38 94 01/07/19 09:15 01/07/19 07:42 94 01/07/19 03:50 91 01/06/19 23:39 93 01/06/19 23:30 01/06/19 19:21 94 Pain Intensity Right Lower Back: Pain Intensity: 4 Notes Mental Status: alert / awake / arousable Patient Amnestic to Procedure: Yes Nausea / Vomiting: adequately controlled Pain: adequately controlled Airway Patency, RR, SpO2: stable & adequate BP & HR: stable & adequate Hydration State: stable & adequate Anesthetic Complications: no major complications apparent
[2019-01-07] MEDS: cefTRIAXone SODIUM 1,000 MG/50 ML BAG IV SCH (17:16)
[2019-01-07] MEDS: METOPROLOL TARTRATE 50 MG TAB PO SCH (21:00)
[2019-01-08] MEDS: LEVOTHYROXINE SODIUM 25 MCG TABLET PO SCH (05:43)
[2019-01-08] MEDS: CITALOPRAM 40 MG TAB PO SCH (07:42)
[2019-01-08] MEDS: POTASSIUM CHLORIDE 10 MEQ TABCR PO SCH (07:42)
[2019-01-08] MEDS: ATORVASTATIN 20 MG TAB PO SCH (07:42)
[2019-01-08] MEDS: GABAPENTIN 300 MG CAP PO SCH (07:42)
[2019-01-08] MEDS: ASPIRIN 81 MG ECTAB PO SCH (07:42)
[2019-01-08] MEDS: ISOSORBIDE MONO EXTENDED REL 60 MG TABCR PO SCH (07:42)
[2019-01-08] MEDS: CLOPIDOGREL BISULFATE 75 MG TAB PO SCH (07:43)
[2019-01-08] MEDS: LOSARTAN POTASSIUM 25 MG TAB PO SCH (07:43)
[2019-01-08] MEDS: METOPROLOL TARTRATE 100 MG TAB PO SCH (07:43)
[2019-01-08 07:44] VITALS: PULSE 56; O2SAT 91
[2019-01-08] MEDS: TRAMADOL HCL 50 MG TABLET PO PRN (07:47)
[2019-01-08 08:01] VITALS: BP 131/69; TEMP 97.5
--- NOTE | 2019-01-08 08:44 | Urology Progress Note ---
Date of Service January 08, 2019 Assessment & Plan (1) Right nephrolithiasis: POD #1 cysto, R ureteral stent placement. See operative notes for details. VSS, afebrile. Pain controlled today with PO options. States she feels well and ready to go home. Some dysuria, pressure and flank pain with voiding - expected with UTI, + ureteral stent in place. She verbalizes understanding of this. +Ecoli UTI - please treat based upon sensitivities for 10-14days Okay to d/c home from standpoint. Will have close f/u with Dr. Moura as outpatient for definitive stone management. Recommend home with pain control, pyridium, and abx. Please reconsult us with any additional questions, concerns or changes in patient status. Subjective 58y F s/p POD #1 R ureteral stent placement Pt feeling well today, slept well overnight. Pain controlled with PO options. Denies n/v, she is hungry. Awaiting breakfast tray. Some dysuria/pressure, R flank discomfort with voiding with stent in place, reports this is tolerable. Review of Systems All systems reviewed & are unremarkable except as noted in HPI & below Physical Exam 2 Vital Signs (Past 24 Hours): Last Vital Signs Temp 36.4 C L 01/08/19 07:07 Pulse 56 L 01/08/19 07:43 Resp 16 01/08/19 07:07 BP 132/77 01/08/19 07:43 Pulse Ox 91 01/08/19 07:43 Physical Exam: A&Ox3 RRR - no supplmenetal O2 requirement. no JVD abs soft, nontender psych: good judgement
--- NOTE | 2019-01-08 08:57 | Discharge Summary ---
Date of Service January 08, 2019 Admission HPI Per Admitting Provider 58 y/o F Hx severe CAD, HTN, HLD, DM II, obese, nephrolithiasis, smoker. Presents with R sided, lower abdominal pain radiating into her back. She admits to nausea and denies vomiting, fevers or rigors. The pt was tachypneic and hypoxic on arrival to the ER and a CXR was consistent with CHF which she does not have a history of. She has not had any complaints of CP it did not c/o SOB despite her hypoxia. A CT of the abdomen was obtained demonstrating an obstructing 5 mm mid right ureteral calculus, mild right-sided hydronephrosis, right-sided perinephric fluid. PMH: 1) Nephrolithiasis - obstructing calculus requiring stent 2015 2) CAD - RCA stent - cath 2016 showing diffuse sever disease - medically managed 3) HTN 4) HLD 5) DM II 6) Obese 7) Hypothyroidism 8) Smoker Surgical: 1) Ureteral stent 2015 2) Stent in RCA Social: Smokes 1 pack daily > 40 yrs - does not drink Family: Mother following CVA Father ESRD, CHF Principal Diagnosis s/p ureteral stent R Discharge Exam Constitutional + obese Eyes PERRL, conjunctivae normal, anicteric sclerae ENMT external ear and nose normal, oropharynx normal Respiratory normal respiratory effort, lungs clear to auscultation Cardiovascular RRR, no murmur, no edema Gastrointestinal (Abdomen) normal bowel sounds, soft, nontender, no hepatosplenomegaly Musculoskeletal Mild R renal colic Skin no rashes, warm and dry Psychiatric A+Ox3, euthymic affect Discharge Data Allergies Allergy/AdvReac Type Severity Reaction Status Date / Time amlodipine Allergy Unknown UNKNOWN Unverified 01/05/19 13:58 REACTION niacin Allergy Unknown Gastrointestinal Unverified 01/05/19 13:58 Upset Consultations 01/05/19 15:24 ED Decision to Admit Stat 01/05/19 18:21 Consult Cardiology Routine Consult Urology Routine Procedures Performed Operation Date: 01/07/19 11:00 Actual Procedures p Cystoscopy, Right Ureteroscopy, Right Stent Placement(Right) - Rufus Hopkins MD Ordered Studies 01/05/19 11:29 CT abd pelvis IV con only Stat 01/07/19 11:00 FL retrograde includes kub Routine Hospital Course (1) Right nephrolithiasis: 58 y/o F with PMH CAD (s/p stent 2017), HTN, HLD, DM2, obesity, tobacco abuse (1ppd >40yrs), hypothyroid, nephrolithiasis (stent 2016) presents to [facility] with R sided, lower abdominal pain radiating into her back. Admitted to nausea , but and denied vomiting, fevers or rigors. The pt was tachypneic and hypoxic on arrival to the ER and a CXR was consistent with CHF which she does not have a history of. Pt was given 40 mg Lasix in ER. A CT of the abdomen was obtained demonstrating an obstructing 5 mm mid right ureteral calculus, mild right-sided hydronephrosis, right-sided perinephric fluid. The following is the medical management during pt's stay here. 1) CHF -Before having sx, pt was medical optimizated for CHF, which pt had no h/o but was demonstrated on admission. Pt had mild pitting edema of LE and some fluid overload on lung exam along with a new requirement of supplemental O2. Pt did not require any more Lasix than what she was given in the ER during her stay here. I/O and daily weights were trended. ECHO showed normal LV size, EF 70-75% , no LVH, elevated L atrial pressure. Cardiology was consulted and recommended home management including daily weights, salt restriction and PRN lasix 20mg on d/c. 2) Obtsructing calculus -After managing pt's CHF, she went to 01/07 for Cystoscopy, Right Ureteroscopy, and Right Stent Placement . No stone was visualized. KUB 01/06: previously noted mid right ureteral calculus was not definitively visualized. Pt was continued on analgesics, antiemetics, flomax during stay along with IV rocephin. Urine cx: E. Coli, pansensitive. Pt will be discharged on PO antibiotics. At time of d/c, pt had some dysuria, pressure and flank pain with voiding, which is to be expected with UTI and s/p ureteral stent in place. Pt will have close f/u with Dr. Moura as outpatient for definitive stone management. 3) CAD -Pt had no evidence of ACS during stay. We continued [employer] ASA, Plavix, B richardson , Statin, Imdur. 4) DM II -Pt was placed on a ISS 5) Hypothyroidism - Pt was continued on [employer] Synthroid DVT Prophylaxis was with SCDs. At time of d/c, pt had no other acute concerns or complaints. Total Time Total Time Spent Total Time Spent (In Minutes): <30 min Discharge Plan Discharge Items Patient Disposition: Home - Self-Care Reason For Visit: OBSTRUCTING CALCULUS Discharge Diagnosis: s/p Right ureteral stent Discharge Goals: Decrease discomfort and Improve function Activity: Per 'Additional Instructions' section Non-emergency contact: Primary Care Provider Call non-emergency contact if: you have any medication questions and your symptoms worsen Diet: Carb Consistent or DM2 Addtl Provider Instructions: You were admitted for a 5 mm kidney stone. You went to surgery and had a Right Stent Placement. Please follow the below instructions on discharge: -Please follow up with Dr. Moura as outpatient for definitive stone management. See you PCP within one week for follow up as well. -Continue to take oral antibiotic for your UTI and anagelsics (both prescribed ) for pain. -You were also seen to have CHF during admission here. If you have symptoms of SOB, feel fluid overloaded (i.e. swelling of legs), please take your 20 mg Lasix. Prescriptions: New cefdinir 300 mg capsule 300 mg PO BID 10 Days Qty: 20 RF: 0 phenazopyridine [Pyridium] 100 mg tablet 100 mg PO BID 3 Days Qty: 6 RF: 0 tramadol [Ultram] 50 mg tablet 50 mg PO DAILY Qty: 20 RF: 0 furosemide [Lasix] 20 mg tablet 20 mg PO .prn Qty: 20 RF: 0 Continue potassium chloride 10 mEq capsule, extended release 10 meq PO DAILY RF: 0 atorvastatin 20 mg tablet 20 mg PO DAILY RF: 0 citalopram 40 mg tablet 40 mg PO DAILY RF: 0 metoprolol tartrate 100 mg tablet 50 mg PO PM RF: 0 metoprolol tartrate 100 mg tablet 100 mg PO QAM RF: 0 glipizide 5 mg tablet extended release 24hr 5 mg PO DAILY RF: 0 clopidogrel 75 mg tablet 75 mg PO DAILY RF: 0 aspirin [Aspir-Low] 81 mg Tablet,Delayed Release (Dr/Ec) 81 mg PO DAILY RF: 0 levothyroxine 25 mcg tablet 25 mcg PO DAILY RF: 0 isosorbide mononitrate 60 mg tablet extended release 24 hr 60 mg PO BID RF: 0 losartan 25 mg tablet 25 mg PO DAILY RF: 0 gabapentin 300 mg capsule 300 mg PO BID RF: 0 metformin 500 mg tablet extended release 24 hr 1,000 mg PO PM RF: 0 Stand-Alone Forms: [facility] Discharge Orders: Discharge Order (Routine); Ordered 01/08/19 Ordered By: Jaime Esparza Admission Data Admit Date/Time: 01/05/19 16:29 Attending Provider: Fran Jaramillo Admit Provider: Ponce Vaughan Primary Care Provider: Prieto Barrera Other Providers: Ponce Vaughan ; Rufus Robbins ; Tyson Moura I. Service: Surgical Services Other Interventions: Discharge Summary Assessment (RN) Last Done: 01/08/19 09:39 DC Date/Time DO NOT enter until pt leaves facility: 01/08/19 11:12 Supervising Physician Co-Signing Physician Notes I personally examined the patient and verified all kunz points of history and exam, discussed case, and agree with decision making with Dr Esparza. Feeling better, feeling up to going home Vitals noted, in general she is awake and alert pleasant no distress. HEENT normocephalic atraumatic mucous members are moist. Breathing is unlabored no accessory muscle use good effort. Skin shows no rashes no pallor or icterus. Acute on chronic diastolic CHFimproved. stable for home Ureterolithiasisimproved status post stenting, finish course of abx for UTI - then outpt urology f/u Stable for home Resident Activity Tracking Resident Involvement: Resident Care Provided Care Provided: Adult Hospital Medicine
[2019-01-08] MEDS: INSULIN GLARGINE SOLOSTAR 100 UNITS/ML 3 ML PEN SC SCH (09:10)
[2019-01-08] MEDS: INSULIN ASPART 100 UNITS/ML 3 ML PEN SC SCH (09:12)
--- NOTE | 2019-01-08 10:23 | Anesthesiology Progress Note ---
Date of Service January 08, 2019 Anesthesia Post Procedure Vital Signs Vital Signs: Temp Pulse Pulse Pulse Resp BP BP 01/08/19 09:39 36.4 C L 56 L 16 131/69 132/77 01/08/19 07:43 56 L 132/77 01/08/19 07:07 36.4 C L 53 L 16 131/69 01/08/19 03:10 36.8 C 52 L 16 145/70 H 01/07/19 23:30 36.7 C 53 L 16 132/81 01/07/19 20:22 36.4 C L 56 L 19 125/75 01/07/19 19:20 36.4 C L 63 18 111/59 L 01/07/19 18:20 36.4 C L 56 L 100/53 L 01/07/19 18:11 63 132/85 01/07/19 17:15 101 H 132/85 01/07/19 17:05 66 107/52 L 01/07/19 17:03 62 01/07/19 17:00 36.5 C 66 16 107/52 L 01/07/19 16:48 01/07/19 16:40 60 18 119/52 L 01/07/19 16:35 57 L 18 01/07/19 16:30 36.3 C L 57 L 18 107/45 L 01/07/19 16:20 57 L 18 125/60 01/07/19 16:10 57 L 18 132/68 01/07/19 16:00 60 18 136/69 01/07/19 15:53 36.0 C L 62 18 157/72 H 01/07/19 15:29 85 79/50 L 01/07/19 15:26 86 82/36 L 01/07/19 14:25 36.4 C L 54 L 18 145/71 H 01/07/19 11:38 36.7 C 51 L 19 112/68 Pulse Ox Pulse Ox 01/08/19 09:39 91 01/08/19 07:43 91 01/08/19 07:07 98 01/08/19 03:10 96 01/07/19 23:30 93 01/07/19 20:22 94 01/07/19 19:20 94 01/07/19 18:20 01/07/19 18:11 01/07/19 17:15 01/07/19 17:05 01/07/19 17:03 01/07/19 17:00 01/07/19 16:48 96 01/07/19 16:40 94 01/07/19 16:35 98 01/07/19 16:30 99 01/07/19 16:20 99 01/07/19 16:10 99 01/07/19 16:00 96 01/07/19 15:53 94 01/07/19 15:29 01/07/19 15:26 01/07/19 14:25 95 01/07/19 11:38 94 Pain Intensity Right Lower Back: Pain Intensity: 8 Notes Mental Status: alert / awake / arousable Patient Amnestic to Procedure: Yes Nausea / Vomiting: adequately controlled Pain: adequately controlled Airway Patency, RR, SpO2: stable & adequate BP & HR: stable & adequate Hydration State: stable & adequate Anesthetic Complications: no major complications apparent and Pt Satisfied with anesthetic care
== END 2019-01-08 11:12 | disposition home or self-care (01) | DRG 659 ==
LOC: ED 10:39 → SUATTDRO 16:29 → 2S 16:29 → 3N 01-07 18:25

== ENCOUNTER 2021-07-16 13:13 | Observation (INO) ==
--- NOTE | 2021-07-16 14:00 | Emergency Department Note ---
Impression & Plan Left sided numbness, Right thalamic stroke ED Provider Note Provider: Dennis Adams MD DATE OF SERVICE: 07/16/2021 CHIEF COMPLAINT: Left arm issues, left face and left lower leg numbness HISTORY OF PRESENT ILLNESS: Patient is a 60-year-old female history of diabetes and CAD with multiple stents in the past presenting today reporting over the last several months she developed vertigo issues. Was seen and had a vestibular therapy treatment at the beginning of May with an Yanet maneuver. States her vertigo quickly after that resolved but since that time she been having some sharp tingling numbness and pain in her left upper arm from the fingertips up to the left shoulder. Reports has been following with her primary doctors office with this and has referral on [facility] to discuss possible nerve impingement in her neck. Reports a little bit of pain in her neck and her left arm again it has been persistent for several weeks. Vertigo has basically been a day other than with abrupt position changes. Patient states this morning around 930am she noted some tingling on her left face particularly on the left cheek as well as some tingling from the left knee the left foot. States she looked in the mirror and did not notice any facial droop or tongue abnormality. Denies any dizziness at this time or any acute visual changes. Denies recent illnesses or rash. Denies abdominal pain or nausea or vomiting. Denies any issues with the right upper arm or right leg. Patient states has been able to walk okay. Patient states compliance with home aspirin and Plavix. No trauma over the last week or 2 reported. REVIEW OF SYSTEMS: A total of 10 review of systems was obtained and negative except as stated above in the HPI. PAST MEDICAL HISTORY: As noted above MEDICATIONS: Reviewed home medications with the patient includes aspirin and Plavix SOCIAL HISTORY: Patient is a smoker PHYSICAL EXAM: GENERAL: alert and oriented in no acute distress on stretcher Head: normocephalic and atraumatic EYES: No injection, discharge or icterus. PERRL, EOMI. NECK: Trachea midline. Supple with some very slight left-sided neck tenderness to palpation. ENT: Mucous membranes pink and moist. Pharynx without erythema or exudate. LUNGS: Airway patent. No retractions. Breath sounds clear with good air entry bilaterally. HEART: Regular rate and rhythm. No chest wall tenderness ABDOMEN: Soft and non-tender, without guarding or rebound. SKIN: Acyanotic, warm, dry, without rashes EXTREMITIES: Without swelling, tenderness or deformity except for some slight tenderness to touch of the left forearm without overlying erythema is in soft forearm compartments. There is no evidence of wounds here. 2+ left radial pulse with good distal perfusion on the left hand. 1+ left DP pulse with good distal capillary perfusion here. No swelling of bilateral feet. NEUROLOGICAL: No aphasia. No facial droop or slurred speech. Tongue is midline. Normal strength and tone in the extremities. Patient reports some persistent slight paresthesias of the left upper arm but feels gross touch. Patient with some paresthesia over the left cheek but feels gross touch here. Patient feels gross touch in the left leg but some subjective numbness below left knee ant eriorly the left toes. EK bpm. Sinus bradycardia. No PVC. No acute ST segment elevation noted. QTc 465. Normal axis. CONTINUOUS CARDIAC MONITORING: was ordered and showed a heart rate of 50s to 60s bpm in sinus bradycardia to normal sinus rhythm Patient's laboratory studies and imaging reviewed. Differential includes Infection, dehydration, metabolic abnormality, hypo/hyperglycemia, electrolyte disturbance, anemia, hypoxia, cardiac sources, intracerebral event, toxicologic, neurologic, as well as other pathologies. IMPRESSION/MEDICAL DECISION MAKING: Patient with history of vertigo after having maneuver seems to develop some left arm cervical to be off of the symptoms. PCP has been following and referred to [facility] [place] [facility] for evaluation on Sunday. Reports this morning however developed a little bit of numbness of the left cheek and the left leg. No motor function abnormality. No acute visual changes. No syncope or unsteadiness reported. No infectious symptoms reported. No motor weakness reported on top of this. On aspirin and Plavix for CAD hx. Presents outside of the TPA window and seems somewhat atypical for stroke given the isolated findings. Given the subjective numbness on the face however, MRI of the brain be completed to exclude CVA. I doubt this is an acute intercranial bleed or meningitis. Does not have a rash concerning for zoster or HSV. No facial paralysis concerning for Benitez's palsy at this point. Lyme screen was sent however as well as basic labs. Left upper arm symptoms do seem consistent with cervical to colopathy. Somewhat harder to explain to the left leg and left facial findings. Normal blood cell counts with no anemia. No severe electrolyte abnormalities noted. TSH within normal limits. Urinalysis somewhat questionable but appears contaminated. MRI completed and per radiology with evidence of a right thalmic acute to subacute stroke. Patient again presented outside the window for TPA. I doubt LVO. Already on aspirin and Plavix. Discussed findings with patient. Recommend further observation and neurology evaluation for optimization as she is already on dual antiplatelet therapy. Patient was agreement. Hospitalist was contacted. DIAGNOSIS: Right thalamus stroke, left-sided numbness DISPOSITION: Hospitalist will evaluate Patient was agreeable with this plan. Past Med/Surg History Medical History (Updated 07/16/21 @ 16:34 by ESTRELLITA Nino) Acute diastolic (congestive) heart failure Anxiety CAD (coronary artery disease) CHF (congestive heart failure) Diabetes mellitus, type 2 Dyslipidemia HTN (hypertension) Hypothyroid Kidney stones Left nephrolithiasis Morbid obesity PVD (peripheral vascular disease) Right nephrolithiasis Sleep apnea CPAP Surgical History History of back surgery Hx of cardiac catheterization x 10 with stenting multiples Hx of section Hx of cystoscopy for renal calculi removal and stenting Social History Smoking Status: Current every day smoker Tobacco Type: Cigarettes Cigarettes Per Day: 12; Second Hand Exposure: No; Hx Alcohol Use: No Hx Substance Use: No Preferred Language: [place] Communication Ability: Effective Visual Impairment: No Limitations Ditch Cleaner Required: No Beliefs That Will Affect Care: None Current Living Situation: Family Current Living Situation Comment: lives with sister Feels Safe at Home: Yes Assistive Devices: Glasses Allergies Allergies Allergy/AdvReac Type Severity Reaction Status Date / Time amlodipine AdvReac Intermediate Diarrhea Verified 07/16/21 15:05 niacin AdvReac Intermediate Gastrointestinal Verified 07/16/21 15:05 Upset Home Meds Home Medications Medication Instructions Recorded Confirmed aspirin 81 mg tablet,delayed 81 mg PO QAM 01/05/19 07/16/21 release (Aspir-Low) citalopram 40 mg tablet 40 mg PO QAM 01/05/19 07/16/21 clopidogrel 75 mg tablet 75 mg PO QAM 01/05/19 07/16/21 metformin 500 mg tablet,extended 1,000 mg PO PM 01/05/19 07/16/21 release 24 hr metoprolol tartrate 100 mg tablet 50 mg PO PM 01/05/19 07/16/21 metoprolol tartrate 100 mg tablet 100 mg PO QAM 01/05/19 07/16/21 isosorbide mononitrate 60 mg 60 mg PO QPM tab 07/15/19 07/16/21 tablet,extended release 24 hr isosorbide mononitrate 60 mg 120 mg PO QAM #270 tab 07/15/19 07/16/21 tablet,extended release 24 hr nitroglycerin 0.4 mg sublingual 0.4 mg SL Q5M PRN tab 07/15/19 07/16/21 tablet gabapentin 300 mg capsule 300 mg PO BID cap 08/06/19 07/16/21 levothyroxine 50 mcg capsule 50 mcg PO DAILY 08/06/19 07/16/21 potassium chloride 20 mEq 10 meq PO DAILY tab 04/28/20 07/16/21 tablet,extended release Previous Rx's Medication Instructions Recorded atorvastatin 40 mg tablet 40 mg PO DAILY #90 tab 12/27/20 glipizide 2.5 mg tablet, extended 2.5 mg PO DAILY #90 tab 04/20/21 release 24 hr losartan 50 mg tablet 50 mg PO QAM #90 tab 04/20/21 Results & Data (ED) Vital Signs Vital Signs - 24 hr 07/16/21 13:15 07/16/21 14:11 07/16/21 16:14 Temperature 36.8 C Temperature Source Temporal Artery Scan Pulse Rate 55 L 60 Pulse Rate from SpO2 Sensor 60 Respiratory Rate 18 18 Respiratory Effort / Characteristics Non-Labored Spontaneous Respiratory Depth Normal Respiratory Pattern Regular Blood Pressure 192/78 H Blood Pressure Mean 116 Blood Pressure Position Sitting Pulse Oximetry 97 94 Oxygen Delivery Method Room Air Room Air Sepsis Recent Fever Within 48 Hours No Sepsis New/Unexplained Change in Mental Status N/A Sepsis Action Taken by Nursing No Action Required 07/16/21 16:30 07/16/21 17:00 Temperature Temperature Source Pulse Rate 58 L Pulse Rate from SpO2 Sensor 56 L Respiratory Rate 16 15 Respiratory Effort / Characteristics Respiratory Depth Respiratory Pattern Blood Pressure 209/77 H Blood Pressure Mean 121 Blood Pressure Position Pulse Oximetry 96 Oxygen Delivery Method Sepsis Recent Fever Within 48 Hours Sepsis New/Unexplained Change in Mental Status Sepsis Action Taken by Nursing Laboratory Data Result diagrams: 07/16/21 14:10 08/28/21 14:10 Lab Results 07/16/21 07/16/21 07/16/21 Range/Units 14:05 14:10 14:10 WBC 8.33 (4.8-10.8) K/uL RBC 4.61 (4.2-5.4) M/uL Hgb 14.3 (12.0-16.0) g/dL Hct 41.7 (37-47) % MCV 90.5 (80-100) fL MCH 31.0 (25-34) pg MCHC 34.3 (32-36) g/dL RDW Std Deviation 46.5 H (36.4-46.3) fL RDW Coeff of James 14.0 (11.5-14.5) % Plt Count 210 (130-400) K/uL MPV 9.7 (7.4-10.4) fL Immature Gran % (Auto) 0.5 % Neut % (Auto) 54.7 % Lymph % (Auto) 37.9 % [place] % (Auto) 5.3 % Eos % (Auto) 1.1 % Baso % (Auto) 0.5 % Neut # (Auto) 4.56 (1.4-6.5) K/uL Lymph # (Auto) 3.16 (1.2-3.4) K/uL [place] # (Auto) 0.44 (0.11-0.59) K/uL Eos # (Auto) 0.09 (0-0.5) K/uL Baso # (Auto) 0.04 (0-0.2) K/uL Immature Gran # (Auto) 0.04 H (0.00-0.02) K/uL Sodium 136 (136-145) mmol/L Potassium 4.1 (3.5-5.1) mmol/L Chloride 105 (98-107) mmol/L Carbon Dioxide 26 (21-32) mmol/L Anion Gap 5.0 (3-11) BUN 14 (7-18) mg/dl Creatinine 0.81 (0.6-1.2) mg/dl Est Cr Clr Drug Dosing 73.7 ml/min Est GFR ( Amer) 90.2 ml/min Est GFR (Non-Af Amer) 77.8 ml/min BUN/Creatinine Ratio 17.8 (10-20) Glucose 79 (70-99) mg/dl Calcium 9.8 (8.5-10.1) mg/dl Total Bilirubin 0.4 (0.2-1) mg/dl AST 12 L (15-37) U/L ALT 18 (12-78) U/L Alkaline Phosphatase 72 (45-117) U/L Troponin I < 0.015 (0-0.045) ng/ml Total Protein 7.5 (6.4-8.2) gm/dl Albumin 3.5 (3.4-5.0) gm/dl Globulin 4.0 (2.5-4.0) gm/dl Albumin/Globulin Ratio 0.9 (0.9-2) TSH 3.260 (0.300-4.500) uIu/ml Urine Color Yellow Urine Appearance Clear (Clear) Urine pH 6.5 (4.5-7.5) Ur Specific [place] 1.004 (1.000-1.030) Urine Protein Trace H (Negative) Urine Glucose (UA) Negative (Negative) Urine Ketones Negative (Negative) Urine Blood Negative (Negative) Urine Nitrite Negative (Negative) Urine Bilirubin Negative (Negative) Urine Urobilinogen Negative (Negative) Ur Leukocyte Esterase 1+ H (Negative) Urine WBC (Auto) 10-30 H (0-5) /hpf Urine RBC (Auto) 0-4 (0-4) /hpf U Hyaline Cast (Auto) 0 (0-5) /lpf U Epithel Cells (Auto) >30 H (0-5) /lpf Urine Bacteria (Auto) 2+ H (Negative) Lyme Disease IgG Ab (Negative) Lyme Disease IgM Ab (Negative) COVID-19 Eval Order 07/16/21 07/16/21 Range/Units 14:10 17:07 WBC (4.8-10.8) K/uL RBC (4.2-5.4) M/uL Hgb (12.0-16.0) g/dL Hct (37-47) % MCV (80-100) fL MCH (25-34) pg MCHC (32-36) g/dL RDW Std Deviation (36.4-46.3) fL RDW Coeff of James (11.5-14.5) % Plt Count (130-400) K/uL MPV (7.4-10.4) fL Immature Gran % (Auto) % Neut % (Auto) % Lymph % (Auto) % [place] % (Auto) % Eos % (Auto) % Baso % (Auto) % Neut # (Auto) (1.4-6.5) K/uL Lymph # (Auto) (1.2-3.4) K/uL [place] # (Auto) (0.11-0.59) K/uL Eos # (Auto) (0-0.5) K/uL Baso # (Auto) (0-0.2) K/uL Immature Gran # (Auto) (0.00-0.02) K/uL Sodium (136-145) mmol/L Potassium (3.5-5.1) mmol/L Chloride (98-107) mmol/L Carbon Dioxide (21-32) mmol/L Anion Gap (3-11) BUN (7-18) mg/dl Creatinine (0.6-1.2) mg/dl Est Cr Clr Drug Dosing ml/min Est GFR ( Amer) ml/min Est GFR (Non-Af Amer) ml/min BUN/Creatinine Ratio (10-20) Glucose (70-99) mg/dl Calcium (8.5-10.1) mg/dl Total Bilirubin (0.2-1) mg/dl AST (15-37) U/L ALT (12-78) U/L Alkaline Phosphatase (45-117) U/L Troponin I (0-0.045) ng/ml Total Protein (6.4-8.2) gm/dl Albumin (3.4-5.0) gm/dl Globulin (2.5-4.0) gm/dl Albumin/Globulin Ratio (0.9-2) TSH (0.300-4.500) uIu/ml Urine Color Urine Appearance (Clear) Urine pH (4.5-7.5) Ur Specific [place] (1.000-1.030) Urine Protein (Negative) Urine Glucose (UA) (Negative) Urine Ketones (Negative) Urine Blood (Negative) Urine Nitrite (Negative) Urine Bilirubin (Negative) Urine Urobilinogen (Negative) Ur Leukocyte Esterase (Negative) Urine WBC (Auto) (0-5) /hpf Urine RBC (Auto) (0-4) /hpf U Hyaline Cast (Auto) (0-5) /lpf U Epithel Cells (Auto) (0-5) /lpf Urine Bacteria (Auto) (Negative) Lyme Disease IgG Ab Negative (Negative) Lyme Disease IgM Ab Negative (Negative) COVID-19 Eval Order Covid19 at [facility] Administered Medications Discontinued Medications Ioversol (Optiray 320 125ml) 119 ml IV ONCE ONE Stop: 07/16/21 15:58 Last Admin: 07/16/21 15:58 Dose: 119 ml Documented by: [id number] Imaging Data Radiologist's Impression: Brain MRI 07/16/21 13:54 MRI OF THE BRAIN WITHOUT IV CONTRAST CLINICAL HISTORY: Left facial numbness. Left arm and leg numbness. COMPARISON STUDY: No priors. TECHNIQUE: MRI of the brain was performed utilizing various T1 and T2-weighted sequences in the axial, sagittal, and coronal planes. IV contrast was not administered for this examination. FINDINGS: Brain parenchyma: There is a 6 mm focus of restricted diffusion identified in the right thalamus seen on image #11. This is consistent with an acute to subacute lacunar infarct. No additional foci of restricted diffusion are identified. There is no hemorrhage or mass effect. Leroy-white matter differentiation is preserved. No extra-axial fluid collection is seen. There is mild microangiopathic change. The cerebellar tonsils are normal in configuration. Ventricles, sulci, and cisterns: Normal in configuration. Pituitary and sella: Partially empty sella is incidentally noted. Intracranial vasculature: Normal flow voids are maintained at the skull base. Orbits: The bony orbits are grossly intact. Orbital contents are normal in appearance. Sinuses and mastoids: There is subtotal opacification of the left maxillary antrum. The remaining paranasal sinuses are clear. There is trace right mastoid effusion. Calvarium: Unremarkable. Cervical cord: Partially visualized cervical spinal cord is normal in morphology and signal intensity. IMPRESSION: 1. There is an acute to subacute subcentimeter lacunar infarct seen in the right thalamus. 2. No additional foci of acute ischemia are identified. 3. There is no hemorrhage or mass effect. 4. Left maxillary sinus disease as above. ACT 112: Negative or not required by law. Electronically signed by: Abraham Marquez M.D. 07/16/2021 3:10 PM Head CTA 07/16/21 15:35 CT ANGIOGRAM OF THE BRAIN; CT ANGIOGRAM OF THE NECK CLINICAL HISTORY: Lacunar infarct of the right thalamus. COMPARISON STUDY: MRI of the brain performed the same day 07/16/2021. TECHNIQUE: Following the IV administration of 119 of Optiray 320, CT angiogram of the head and neck was performed from the aortic arch to the vertex. Images are reviewed in the axial, sagittal, and coronal planes. 3-D MIPS images are created and assessed. IV contrast was administered without complication. All measurements were calculated based on NASCET criteria. A dose lowering technique was utilized adhering to the principles of ALARA. CT DOSE: 566.99 mGy.cm FINDINGS: Brain parenchyma: The brain parenchyma is normal in appearance. There is no evidence of hemorrhage, mass effect, or acute territorial ischemia noting angiographic phase technique. There is no evidence of enhancing mass lesion on the angiogram phase images. The ventricles, sulci, and cisterns are normal in configuration. Leroy-white matter differentiation is preserved. No extra-axial fluid collection is seen. Thoracic aorta: There is atherosclerotic calcification of the thoracic aorta. Visualized portions of the thoracic aorta are normal in caliber. The aortic arch demonstrates standard 3-vessel anatomy. Right carotid arterial system: The right common carotid artery is widely patent, as are the right internal and external carotid arteries. Calcified plaque is noted in the carotid bulb. Left carotid arterial system: The left common carotid artery is widely patent. Advanced atherosclerotic plaque in the carotid bulb causes approximately 50% luminal narrowing at the origin of the left internal carotid artery. The remainder of the internal carotid artery is widely patent, as is the left external carotid artery. Vertebral arteries: There is moderate stenosis at the origin of the left vertebral artery. The vertebral arteries are otherwise patent bilaterally and codominant the neck. Subclavian arteries: Widely patent bilaterally. Intracranial vasculature: There is atherosclerotic calcification of the cavernous carotid arteries. The [place] of [place] is developmentally complete. There are large bilateral posterior communicating arteries. The P1 segments are diminutive. The internal carotid arteries are patent at the skull base, as are the anterior and middle cerebral arteries bilaterally. The vertebrobasilar system and posterior cerebral arteries are widely patent. The intracranial right vertebral artery is dominant. There is no aneurysm, high-grade stenosis, or focal vessel cut off seen throughout the intracranial circulation. Jugular veins: Patent bilaterally. Dural sinuses: Patent. Lung apices: Emphysematous change is noted in the upper lobes. There is mild intralobular septal thickening. Patchy nodular opacities are seen in the upper lobes and measure up to 6 mm. This is seen on image #45. Soft tissues: The visualized pharyngeal soft tissues are normal in appearance noting angiographic phase technique. The oropharyngeal airway appears widely patent. The salivary and thyroid glands are normal in appearance. No cervical lymphadenopathy is seen. Skeletal structures: The skeletal structures are osteopenic. The calvarium appears intact. The cervical spine is maintained noting mild multilevel spondylosis. No lytic or blastic lesion is identified. Orbits: The bony orbits are intact. Orbital contents are normal as visualized. Sinuses and mastoids: There is subtotal opacification of the left maxillary antrum. The remaining paranasal sinuses are clear. There is trace right mastoid effusion. The left mastoid air cells are well pneumatized. IMPRESSION: 1. There is no evidence of hemorrhage, mass effect, or acute territorial ischemia noting angiographic phase technique. The small thalamic lacunar infarct seen by MRI is not visible on CT. 2. Unremarkable CT angiogram of the brain. 3. Atherosclerotic plaque causes approximately 50% stenosis at the origin of the left internal carotid artery. The internal carotid arteries are otherwise patent bilaterally. 4. There is moderate stenosis at the origin of the left vertebral artery. 5. Emphysema. 6. Intralobular septal thickening is noted in the upper lobes and there are foci of patchy nodularity which measure up to 6 mm. These findings may on an inflammatory basis or related to congestive failure. Clinical correlation will be required. Follow-up with a dedicated chest CT in 3 months time is recommended for reassessment of these nodules and for full assessment of the thorax. ACT 112: Negative or not required by law. Electronically signed by: Abraham Marquez M.D. 07/16/2021 5:29 PM Neck CTA 07/16/21 15:35 CT ANGIOGRAM OF THE BRAIN; CT ANGIOGRAM OF THE NECK CLINICAL HISTORY: Lacunar infarct of the right thalamus. COMPARISON STUDY: MRI of the brain performed the same day 07/16/2021. TECHNIQUE: Following the IV administration of 119 of Optiray 320, CT angiogram of the head and neck was performed from the aortic arch to the vertex. Images are reviewed in the axial, sagittal, and coronal planes. 3-D MIPS images are created and assessed. IV contrast was administered without complication. All measurements were calculated based on NASCET criteria. A dose lowering technique was utilized adhering to the principles of ALARA. CT DOSE: 566.99 mGy.cm FINDINGS: Brain parenchyma: The brain parenchyma is normal in appearance. There is no evidence of hemorrhage, mass effect, or acute territorial ischemia noting angiographic phase technique. There is no evidence of enhancing mass lesion on the angiogram phase images. The ventricles, sulci, and cisterns are normal in configuration. Leroy-white matter differentiation is preserved. No extra-axial fluid collection is seen. Thoracic aorta: There is atherosclerotic calcification of the thoracic aorta. Visualized portions of the thoracic aorta are normal in caliber. The aortic arch demonstrates standard 3-vessel anatomy. Right carotid arterial system: The right common carotid artery is widely patent, as are the right internal and external carotid arteries. Calcified plaque is noted in the carotid bulb. Left carotid arterial system: The left common carotid artery is widely patent. Advanced atherosclerotic plaque in the carotid bulb causes approximately 50% luminal narrowing at the origin of the left internal carotid artery. The remainder of the internal carotid artery is widely patent, as is the left external carotid artery. Vertebral arteries: There is moderate stenosis at the origin of the left vertebral artery. The vertebral arteries are otherwise patent bilaterally and codominant the neck. Subclavian arteries: Widely patent bilaterally. Intracranial vasculature: There is atherosclerotic calcification of the cavernous carotid arteries. The [place] of [place] is developmentally complete. There are large bilateral posterior communicating arteries. The P1 segments are diminutive. The internal carotid arteries are patent at the skull base, as are the anterior and middle cerebral arteries bilaterally. The vertebrobasilar system and posterior cerebral arteries are widely patent. The intracranial right vertebral artery is dominant. There is no aneurysm, high-grade stenosis, or focal vessel cut off seen throughout the intracranial circulation. Jugular veins: Patent bilaterally. Dural sinuses: Patent. Lung apices: Emphysematous change is noted in the upper lobes. There is mild intralobular septal thickening. Patchy nodular opacities are seen in the upper lobes and measure up to 6 mm. This is seen on image #45. Soft tissues: The visualized pharyngeal soft tissues are normal in appearance noting angiographic phase technique. The oropharyngeal airway appears widely patent. The salivary and thyroid glands are normal in appearance. No cervical lymphadenopathy is seen. Skeletal structures: The skeletal structures are osteopenic. The calvarium appears intact. The cervical spine is maintained noting mild multilevel spondylosis. No lytic or blastic lesion is identified. Orbits: The bony orbits are intact. Orbital contents are normal as visualized. Sinuses and mastoids: There is subtotal opacification of the left maxillary antrum. The remaining paranasal sinuses are clear. There is trace right mastoid effusion. The left mastoid air cells are well pneumatized. IMPRESSION: 1. There is no evidence of hemorrhage, mass effect, or acute territorial ischemia noting angiographic phase technique. The small thalamic lacunar infarct seen by MRI is not visible on CT. 2. Unremarkable CT angiogram of the brain. 3. Atherosclerotic plaque causes approximately 50% stenosis at the origin of the left internal carotid artery. The internal carotid arteries are otherwise patent bilaterally. 4. There is moderate stenosis at the origin of the left vertebral artery. 5. Emphysema. 6. Intralobular septal thickening is noted in the upper lobes and there are foci of patchy nodularity which measure up to 6 mm. These findings may on an inflammatory basis or related to congestive failure. Clinical correlation will b e required. Follow-up with a dedicated chest CT in 3 months time is recommended for reassessment of these nodules and for full assessment of the thorax. ACT 112: Negative or not required by law. Electronically signed by: Abraham Marquez M.D. 07/16/2021 5:29 PM Discharge Plan Visit Data Chief Complaint: Neuro Symptoms/Deficit Stated Complaint: LEFT FACE SIDE NUMB,LEFT ARM NUMB ED Provider: Dennis Adams Discharge Problem: Left sided numbness, Right thalamic stroke Patient Disposition: Being Evaluated by Hospitalist Forms Stand Alone Forms: My [facility] Prescriptions Prescriptions: No Action atorvastatin 40 mg tablet 40 mg PO DAILY Qty: 90 RF: 3 glipizide 2.5 mg tablet extended release 24hr 2.5 mg PO DAILY Qty: 90 RF: 3 losartan 50 mg tablet 50 mg PO QAM Qty: 90 RF: 3 isosorbide mononitrate 60 mg tablet extended release 24 hr 120 mg PO QAM Qty: 270 RF: 0 nitroglycerin 0.4 mg tablet, sublingual 0.4 mg SL Q5M PRN (Reason: chest pain) RF: 0 levothyroxine 50 mcg capsule 50 mcg PO DAILY RF: 0 potassium chloride 20 mEq tablet extended release 10 meq PO DAILY RF: 0 citalopram 40 mg tablet 40 mg PO QAM RF: 0 metoprolol tartrate 100 mg tablet 50 mg PO PM RF: 0 metoprolol tartrate 100 mg tablet 100 mg PO QAM RF: 0 clopidogrel 75 mg tablet 75 mg PO QAM RF: 0 aspirin [Aspir-Low] 81 mg Tablet,Delayed Release (Dr/Ec) 81 mg PO QAM RF: 0 metformin 500 mg tablet extended release 24 hr 1,000 mg PO PM RF: 0 isosorbide mononitrate 60 mg tablet extended release 24 hr 60 mg PO QPM RF: 0 gabapentin 300 mg capsule 300 mg PO BID RF: 0 Referrals Referrals: Prieto Barrera [Primary Care Provider] -
[2021-07-16 14:24] LABS: Basophils # (auto) 0.04 K/uL (0-0.2); Basophils % (auto) 0.5 %; Eosinophils # (auto) 0.09 K/uL (0-0.5); Eosinophils % (auto) 1.1 %; Hematocrit (blood only) 41.7 % (37-47); Hemoglobin 14.3 g/dL (12.0-16.0); Immature Granulocytes # (auto) 0.04 K/uL (0.00-0.02); Immature Granulocytes % (auto) 0.5 %; Lymphocytes # (auto) 3.16 K/uL (1.2-3.4); Lymphocytes % (auto) 37.9 %; Mean Corpuscular Hgb Conc 34.3 g/dL (32-36); Mean Corpuscular Volume 90.5 fL (80-100); Mean Platelet Volume 9.7 fL (7.4-10.4); Monocytes # (auto) 0.44 K/uL (0.11-0.59); Monocytes % (auto) 5.3 %; Neutrophils # (auto) 4.56 K/uL (1.4-6.5); Neutrophils % (auto) 54.7 %; Platelet Count 210 K/uL (130-400); RDW Standard Deviation 46.5 fL (36.4-46.3); Red Blood Count 4.61 M/uL (4.2-5.4); White Blood Count 8.33 K/uL (4.8-10.8)
[2021-07-16 14:33] LABS: Appearance Urine Clear (Clear); Bacteria Urine Automated 2+ (Negative); Bilirubin Urine Negative (Negative); Blood Urine Negative (Negative); Cast Urine Automated 0 /lpf (0-5); Color Urine Yellow; Epithelial Cell Urine Auto >30 /lpf (0-5); Glucose Urine UA Negative (Negative); Ketones Urine Negative (Negative); Leukocyte Esterase Urine 1+ (Negative); Nitrite Urine Negative (Negative); Protein Urine Trace (Negative); RBC Urine Automated 0-4 /hpf (0-4); Specific Gravity Urine 1.004 (1.000-1.030); Urobilinogen Urine Negative (Negative); pH Urine 6.5 (4.5-7.5)
[2021-07-16 14:43] LABS: Alanine Aminotransferase 18 U/L (12-78); Albumin Level 3.5 gm/dl (3.4-5.0); Aspartate Aminotransferase 12 U/L (15-37); BUN Creatinine Ratio 17.8 (10-20); Blood Urea Nitrogen 14 mg/dl (7-18); Calcium 9.8 mg/dl (8.5-10.1); Carbon Dioxide 26 mmol/L (21-32); Chloride 105 mmol/L (98-107); Creatinine Clr Calc Pharmacy 73.7 ml/min; Est GFR (African American) 90.2 ml/min; Est GFR (Non-African American) 77.8 ml/min; Glucose 79 mg/dl (70-99); Potassium 4.1 mmol/L (3.5-5.1); Sodium 136 mmol/L (136-145)
[2021-07-16 14:54] LABS: Albumin Globulin Ratio 0.9 (0.9-2); Alkaline Phosphatase 72 U/L (45-117); Bilirubin,Total 0.4 mg/dl (0.2-1); Total Protein 7.5 gm/dl (6.4-8.2); Troponin I < 0.015 ng/ml (0-0.045)
[2021-07-16 15:05] LABS: Lyme Ab IgG w/WB Rflx Negative (Negative)
[2021-07-16 15:06] LABS: Lyme Ab IgM w/WB Rflx Negative (Negative)
--- NOTE | 2021-07-16 15:11 | Magnetic Resonance Report ---
MRI OF THE BRAIN WITHOUT IV CONTRAST CLINICAL HISTORY: Left facial numbness. Left arm and leg numbness. COMPARISON STUDY: No priors. TECHNIQUE: MRI of the brain was performed utilizing various T1 and T2-weighted sequences in the axial , sagittal, and coronal planes. IV contrast was not administered for this examination. FINDINGS: Brain parenchyma: There is a 6 mm focus of restricted diffusion identified in the right thalamus seen on image #11. This is consistent with an acute to subacute lacunar infarct. No additional foci of re stricted diffusion are identified. There is no hemorrhage or mass effect. Leroy-white matter differen tiation is preserved. No extra-axial fluid collection is seen. There is mild microangiopathic change. The cerebellar tonsils are normal in configuration. Ventricles, sulci, and cisterns: Normal in configuration. Pituitary and sella: Partially empty sella is incidentally noted. Intracranial vasculature: Normal flow voids are maintained at the skull base. Orbits: The bony orbits are grossly intact. Orbital contents are normal in appearance. Sinuses and mastoids: There is subtotal opacification of the left maxillary antrum. The remaining par anasal sinuses are clear. There is trace right mastoid effusion. Calvarium: Unremarkable. Cervical cord: Partially visualized cervical spinal cord is normal in morphology and signal intensity . IMPRESSION: 1. There is an acute to subacute subcentimeter lacunar infarct seen in the right thalamus. 2. No additional foci of acute ischemia are identified. 3. There is no hemorrhage or mass effect. 4. Left maxillary sinus disease as above. ACT 112: Negative or not required by law. Electronically signed by: Abraham Marquez M.D. 07/16/2021 3:10 PM
[2021-07-16] MEDS ORDERED: OPTIRAY 320 125ml IV ONE (15:57)
--- NOTE | 2021-07-16 16:02 | History & Physical Report ---
Date of Service July 16, 2021 Assessment & Plan (1) Infarction of right thalamus: Plan: Acute to subacute lacunar infarct to the right thalmus - not tPA candidate secondary to time - NIHSS-1 - Continue ASA and Plavix - Continue atorvastatin 40mg - CTA of the head and neck pending - allow permissive HTN as cardiac symptoms allow- continue with her PRN NTG - Labetalol 10mg IV prn SBP>220 and/or DBP >110 - CT of the head 24 hours later evaluate for hemorrhagic conversion- [id number] - Neurology consulted- appreciate assistance - ECHO - PT/OT consult (2) Vertigo: Plan: when sitting up in the morning and lying down at night symptoms are worse - does have meclizine PRN but does not use it often (3) Diabetes mellitus: Plan: Type II HGB a1c in morning - transition to aspart sliding scale: CF 20, 0 carb coverage for now goal <180 - can adjust as needed (4) CAD (coronary artery disease): Plan: Severe CAD with RCA stents and LAD disease - as above- minimal exertion for rest of admission - allow permissive HTN as cardiac symptoms allow- NTG PRN - Continue asa/Plavix/statin (5) Smoker: Plan: Not on therapy at home - continues to smoke 1.5 packs per day - does not want nicotine patch at this time (6) Hypothyroid: Plan: Continue Synthroid 50mcg daily (7) Dyslipidemia: Plan: Continue with atorvastatin as above, per HPI - lipid panel in the morning (8) HTN (hypertension): Plan: as above permissive HTN as allows - restart home regime if needed/tomorrow History of Present Illness Primary Care Provider: Prieto Barrera 60 YOF with past medical history of: CAD(sent to her RCA), KS, DM, HTN, HLD, Recurrent nephrolithiasis and COPD, cervical stenosis, current smoker. Initial KS was in 2000 where she received bare metal stent to her RCA with restenosis 6 months later received multiple stents complicated by VF arrest, reported 10 stents to RCA, she has stable angina with exertion. Patient comes to the EMD as she awoke this morning ~0930 with her left side of her face feeling numb and tingly. She did not notice any other changes as she has chronic numbness and tingling to her left arm related to her cervical stenosis, which she is currently in the process of getting surgical evaluation. Patient also has had increase in her baseline vertigo over the past few months. In the EMD she had routine labs drawn to include Lyme, and a brain MRI completed. Her MRI revealed a 6 mm focus of restricted diffusion identified in the right thalamus, no other hemorrhage or focal lesions noted. Hospitalist team was notified for admission. Patient will be admitted and continued stroke work-up and management. She was not a tPA candidate secondary to time of presentation. She will get a CTA of her neck and head to evaluate for vascular etiology, neurology consult and ECHO. Patient continues on her ASA and Plavix and states that she has not missed any doses and she took these this morning. She did not tolerate change of atorvastatin to higher dose rosuvastatin to get to goal of 70 so remains on atorvastatin. She follows Dr. Robbins for her cardiac history. Patient has received her COVID vaccine. Allergies Allergy/AdvReac Type Severity Reaction Status Date / Time amlodipine AdvReac Intermediate Diarrhea Verified 07/16/21 15:05 niacin AdvReac Intermediate Gastrointestinal Verified 07/16/21 15:05 Upset Home Medications Medication Instructions Recorded Confirmed Type aspirin 81 mg tablet,delayed 81 mg PO QAM 01/05/19 07/16/21 History release (Aspir-Low) citalopram 40 mg tablet 40 mg PO QAM 01/05/19 07/16/21 History clopidogrel 75 mg tablet 75 mg PO QAM 01/05/19 07/16/21 History metformin 500 mg tablet,extended 1,000 mg PO PM 01/05/19 07/16/21 History release 24 hr metoprolol tartrate 100 mg tablet 50 mg PO PM 01/05/19 07/16/21 History metoprolol tartrate 100 mg tablet 100 mg PO QAM 01/05/19 07/16/21 History isosorbide mononitrate 60 mg 60 mg PO QPM tab 07/15/19 07/16/21 History tablet,extended release 24 hr isosorbide mononitrate 60 mg 120 mg PO QAM #270 tab 07/15/19 07/16/21 History tablet,extended release 24 hr nitroglycerin 0.4 mg sublingual 0.4 mg SL Q5M PRN tab 07/15/19 07/16/21 History tablet gabapentin 300 mg capsule 300 mg PO BID cap 08/06/19 07/16/21 History levothyroxine 50 mcg capsule 50 mcg PO DAILY 08/06/19 07/16/21 History potassium chloride 20 mEq 10 meq PO DAILY tab 04/28/20 07/16/21 History tablet,extended release atorvastatin 40 mg tablet 40 mg PO DAILY #90 tab 12/27/20 07/16/21 Rx glipizide 2.5 mg tablet, extended 2.5 mg PO DAILY #90 tab 04/20/21 07/16/21 Rx release 24 hr losartan 50 mg tablet 50 mg PO QAM #90 tab 04/20/21 07/16/21 Rx Past Med/Surg History Medical History (Updated 07/16/21 @ 16:34 by ESTRELLITA Nino) Acute diastolic (congestive) heart failure Anxiety CAD (coronary artery disease) CHF (congestive heart failure) Diabetes mellitus, type 2 Dyslipidemia HTN (hypertension) Hypothyroid Kidney stones Left nephrolithiasis Morbid obesity PVD (peripheral vascular disease) Right nephrolithiasis Sleep apnea CPAP Surgical History History of back surgery Hx of cardiac catheterization x 10 with stenting multiples Hx of section Hx of cystoscopy for renal calculi removal and stenting Social History Smoking Status: Current every day smoker Tobacco Type: Cigarettes Cigarettes Per Day: 12; Second Hand Exposure: No; Hx Alcohol Use: No Hx Substance Use: No Preferred Language: [place] Communication Ability: Effective Visual Impairment: No Limitations Literary Agent Required: No Beliefs That Will Affect Care: None Current Living Situation: Family Current Living Situation Comment: lives with sister Feels Safe at Home: Yes Assistive Devices: Glasses Review of Systems Review of Systems: REVIEW OF SYSTEMS: Constitutional: No fever, sweats or chills Eyes: No diplopia, no worsening or blurred vision ENT: normal hearing, no trouble swallowing Respiratory: (+) dyspnea on exertion, No cough, sputum, No dyspnea at rest. Cardiovascular: No chest pain, tightness or palpitations Abdomen: No pain, nausea, vomiting, diarrhea or constipation Musculoskeletal: No joint pain, calf pain, swelling Neurologic: (+) vertigo, numbness tingling per HPI, No balance problems Psychiatric: No anxiety or depression Skin: No rash or itch Physical Exam Physical Exam: PHYSICAL EXAM: General: awake, alert, no apparent distress Head: Normocephalic, atraumatic ENT: PERRL, EOMI, no pharyngeal exudate, mucous membranes moist Neuro: AAO x 3, speech clear and appropriate, strength intact bilaterally 5/5, decreased sensation to left cheek, chin, arm, and lower leg on the medial aspect at knee, no pronator drift, no overshoot with finger to nose, no ataxia, no difficulty reading or writing. Chest: equal rise and fall of the chest, no accessory muscle use, no heaves or thrills, scattered rhonchi, on room air, Cardiac: Regular rate and rhythm, telemetry reviewed- NSR, skin warm dry, cap refill <3 seconds, peripheral pulses +2 no JVD, no murmur, no edema GI: NABS x 4 quadrants, soft, nontender to palpation, no rebound, guarding or tenderness : Spontaneously voiding, no pain, no CVA tenderness, Extremities: Normal inspection, no peripheral edema or erythema, calfs nontender to palpation Psych: Normal mood and affect Skin: no rash or erythema Results & Data Results & Data ([facility]) Vital Signs (Past 12 Hours) Vital Signs Temp Pulse Resp BP Pulse Ox 07/16/21 13:15 36.8 C 55 L 18 192/78 H 97 Laboratory Results Abnormal lab results 07/16/21 07/16/21 07/16/21 Range/Units 14:05 14:10 14:10 RDW Std Deviation 46.5 H (36.4-46.3) fL Immature Gran # (Auto) 0.04 H (0.00-0.02) K/uL AST 12 L (15-37) U/L Urine Protein Trace H (Negative) Ur Leukocyte Esterase 1+ H (Negative) Urine WBC (Auto) 10-30 H (0-5) /hpf U Epithel Cells (Auto) >30 H (0-5) /lpf Urine Bacteria (Auto) 2+ H (Negative) Diagnostic Findings Brain MRI 07/16/21 13:54 MRI OF THE BRAIN WITHOUT IV CONTRAST CLINICAL HISTORY: Left facial numbness. Left arm and leg numbness. COMPARISON STUDY: No priors. TECHNIQUE: MRI of the brain was performed utilizing various T1 and T2-weighted sequences in the axial, sagittal, and coronal planes. IV contrast was not administered for this examination. FINDINGS: Brain parenchyma: There is a 6 mm focus of restricted diffusion identified in the right thalamus seen on image #11. This is consistent with an acute to subacute lacunar infarct. No additional foci of restricted diffusion are identified. There is no hemorrhage or mass effect. Leroy-white matter differentiation is preserved. No extra-axial fluid collection is seen. There is mild microangiopathic change. The cerebellar tonsils are normal in configuration. Ventricles, sulci, and cisterns: Normal in configuration. Pituitary and sella: Partially empty sella is incidentally noted. Intracranial vasculature: Normal flow voids are maintained at the skull base. Orbits: The bony orbits are grossly intact. Orbital contents are normal in appearance. Sinuses and mastoids: There is subtotal opacification of the left maxillary antrum. The remaining paranasal sinuses are clear. There is trace right mastoid effusion. Calvarium: Unremarkable. Cervical cord: Partially visualized cervical spinal cord is normal in morphology and signal intensity. IMPRESSION: 1. There is an acute to subacute subcentimeter lacunar infarct seen in the right thalamus. 2. No additional foci of acute ischemia are identified. 3. There is no hemorrhage or mass effect. 4. Left maxillary sinus disease as above. Electronically signed by: Abraham Marquez M.D. 07/16/2021 3:[address] ANGIOGRAM OF THE BRAIN; CT ANGIOGRAM OF THE NECK CLINICAL HISTORY: Lacunar infarct of the right thalamus. COMPARISON STUDY: MRI of the brain performed the same day 07/16/2021. TECHNIQUE: Following the IV administration of 119 of Optiray 320, CT angiogram of the head and neck was performed from the aortic arch to the vertex. Images are reviewed in the axial, sagittal, and coronal planes. 3-D MIPS images are created and assessed. IV contrast was administered without complication. All measurements were calculated based on NASCET criteria. A dose lowering technique was utilized adhering to the principles of ALARA. CT DOSE: 566.99 mGy.cm FINDINGS: Brain parenchyma: The brain parenchyma is normal in appearance. There is no evidence of hemorrhage, mass effect, or acute territorial ischemia noting angiographic phase technique. There is no evidence of enhancing mass lesion on the angiogram phase images. The ventricles, sulci, and cisterns are normal in configuration. Leroy-white matter differentiation is preserved. No extra-axial fluid collection is seen. Thoracic aorta: There is atherosclerotic calcification of the thoracic aorta. Visualized portions of the thoracic aorta are normal in caliber. The aortic arch demonstrates standard 3-vessel anatomy. Right carotid arterial system: The right common carotid artery is widely patent, as are the right internal and external carotid arteries. Calcified plaque is noted in the carotid bulb. Left carotid arterial system: The left common carotid artery is widely patent. Advanced atherosclerotic plaque in the carotid bulb causes approximately 50% luminal narrowing at the origin of the left internal carotid artery. The remainder of the internal carotid artery is widely patent, as is the left external carotid artery. Vertebral arteries: There is moderate stenosis at the origin of the left vertebral artery. The vertebral arteries are otherwise patent bilaterally and codominant the neck. Subclavian arteries: Widely patent bilaterally. Intracranial vasculature: There is atherosclerotic calcification of the cavernous carotid arteries. The [place] is developmentally complete. There are large bilateral posterior communicating arteries. The P1 segments are diminutive. The internal carotid arteries are patent at the skull base, as are the anterior and middle cerebral arteries bilaterally. The vertebrobasilar system and posterior cerebral arteries are widely patent. The intracranial right vertebral artery is dominant. There is no aneurysm, high-grade stenosis, or focal vessel cut off seen throughout the intracranial circulation. Jugular veins: Patent bilaterally. Dural sinuses: Patent. Lung apices: Emphysematous change is noted in the upper lobes. There is mild intralobular septal thickening. Patchy nodular opacities are seen in the upper lobes and measure up to 6 mm. This is seen on image #45. Soft tissues: The visualized pharyngeal soft tissues are normal in appearance noting angiographic phase technique. The oropharyngeal airway appears widely patent. The salivary and thyroid glands are normal in appearance. No cervical lymphadenopathy is seen. Skeletal structures: The skeletal structures are osteopenic. The calvarium appears intact. The cervical spine is maintained noting mild multilevel spondylosis. No lytic or blastic lesion is identified. Orbits: The bony orbits are intact. Orbital contents are normal as visualized. Sinuses and mastoids: There is subtotal opacification of the left maxillary antrum. The remaining paranasal sinuses are clear. There is trace right mastoid effusion. The left mastoid air cells are well pneumatized. IMPRESSION: 1. There is no evidence of hemorrhage, mass effect, or acute territorial ischemia noting angiographic phase technique. The small thalamic lacunar infarct seen by MRI is not visible on CT. 2. Unremarkable CT angiogram of the brain. 3. Atherosclerotic plaque causes approximately 50% stenosis at the origin of the left internal carotid artery. The internal carotid arteries are otherwise patent bilaterally. 4. There is moderate stenosis at the origin of the left vertebral artery. 5. Emphysema. 6. Intralobular septal thickening is noted in the upper lobes and there are foci of patchy nodularity which measure up to 6 mm. These findings may on an inflamm atory basis or related to congestive failure. Clinical correlation will be required. Follow-up with a dedicated chest CT in 3 months time is recommended for reassessment of these nodules and for full assessment of the thorax. Medications Administered Discontinued Medications Ioversol (Optiray 320 125ml) 119 ml IV ONCE ONE Stop: 07/16/21 15:58 Last Admin: 07/16/21 15:58 Dose: 119 ml Documented by: [id number] ECG Additional Comments: Sinus bradycardia Cannot rule out Anterior infarct , age undetermined Abnormal ECG When compared with ECG of 05-JAN-2019 13:28, No significant change was found Code Status & VTE Plan Code Status CODE: FULL VTE: SCDs, ambulation, ASA/Plavix VTE Prophylaxis Plan VTE Prophylaxis will be ordered: Yes Supervising Physician Co-Signing Physician Notes 60 y/o F HTN, HLD, DM, COPD, CAD/[place], cervical stenosis with weakness of the L arm - continues to smoke. Presents with a chief compliant of L sided facial paresthesias or numbness. She has vertigo which she states is chronic and weakness of the L arm exam, although she is not sure if there is an acute element to this. An MRI revealed a 6 mm focus of restricted diffusion identified in the right thalamus which is deemed acute. Labs are unremarkable aside form a borderline + UA. She is markedly hypertensive on admission. OE: General: AAO x 3, no distress ENT: No erythema or exudates, no thrush Eyes: BERNICE, EOMI Head and neck: Normocephalic, atraumatic, No JVD, neck is supple. Chest/heart: Nontender, S1,2, RRR, no murmurs, no gallops Lungs: CTAB, no wheezing or crackles Abdomen: Nontender, nondistended, BS+ Neuro: There is a pronator drift on the L with reduced bone char kiln tender strength. There are no other acute abnormalities. Musculoskeletal: No joint inflammation, muscle tenderness, FROM Skin: No acute rashes or ulcers Extremities: No clubbing, cyanosis, edema P: 1) Assigned to telemetry with a CVA protocol - she is already receiving ASA, Plavix and a statin. We will increase her statin dose AM, consult neuro and obtain a CTA. It is imperative that she stop smoking as her medical therapy is optimized. 2) DM - sliding scale 3) CAD - no evidence of ACS - cont ASA, statin, Plavix. She does have angina and we will need to keep an eye on this as we are allowing hypertension. Metoprolol should be reintroduced when possible. 4) Hypothyroid - cont Synthroid 5) UTI - UA is borderline without symptoms. We are treating as she is hospitalized. Full code - Lovenox prophylaxis Total time for this admit including review of labs, meds, imaging, records - discussion with pt and ER attending - 48 min PG Care Time/CCT Total # of Minutes Spent Total Time Spent with Patient: Total time spent is greater than 50% in coordination of care (as documented) at patient's floor/unit and/or counseling patient: Coding Level of Care Code INT OBSERVATION CARE 70M LVL 3 Diagnoses Infarction of right thalamus I63.9 Vertigo R42 Diabetes mellitus E11.9 CAD (coronary artery disease) I25.10 Smoker F17.200 Hypothyroid E03.9 Dyslipidemia E78.5 HTN (hypertension) I10
[2021-07-16] MEDS ORDERED: LABETALOL HCL IV 5 MG/ML 20ML IV PRN (16:21)
--- NOTE | 2021-07-16 17:30 | CT Scan Report ---
CT ANGIOGRAM OF THE BRAIN; CT ANGIOGRAM OF THE NECK CLINICAL HISTORY: Lacunar infarct of the right thalamus. COMPARISON STUDY: MRI of the brain performed the same day 07/16/2021. TECHNIQUE: Following the IV administration of 119 of Optiray 320, CT angiogram of the head and neck w as performed from the aortic arch to the vertex. Images are reviewed in the axial, sagittal, and [place] n[place] planes. 3-D MIPS images are created and assessed. IV contrast was administered without complicati on. All measurements were calculated based on NASCET criteria. A dose lowering technique was utilize d adhering to the principles of ALARA. CT DOSE: 566.99 mGy.cm FINDINGS: Brain parenchyma: The brain parenchyma is normal in appearance. There is no evidence of hemorrhage, m ass effect, or acute territorial ischemia noting angiographic phase technique. There is no evidence o f enhancing mass lesion on the angiogram phase images. The ventricles, sulci, and cisterns are normal in configuration. Leroy-white matter differentiation is preserved. No extra-axial fluid collection is seen. Thoracic aorta: There is atherosclerotic calcification of the thoracic aorta. Visualized portions of the thoracic aorta are normal in caliber. The aortic arch demonstrates standard 3-vessel anatomy. Right carotid arterial system: The right common carotid artery is widely patent, as are the right int ernal and external carotid arteries. Calcified plaque is noted in the carotid bulb. Left carotid arterial system: The left common carotid artery is widely patent. Advanced atherosclerot ic plaque in the carotid bulb causes approximately 50% luminal narrowing at the origin of the left in ternal carotid artery. The remainder of the internal carotid artery is widely patent, as is the left external carotid artery. Vertebral arteries: There is moderate stenosis at the origin of the left vertebral artery. The verteb ral arteries are otherwise patent bilaterally and codominant the neck. Subclavian arteries: Widely patent bilaterally. Intracranial vasculature: There is atherosclerotic calcification of the cavernous carotid arteries. T he [place] of [place] is developmentally complete. There are large bilateral posterior communicating ar teries. The P1 segments are diminutive. The internal carotid arteries are patent at the skull base, a s are the anterior and middle cerebral arteries bilaterally. The vertebrobasilar system and posterior cerebral arteries are widely patent. The intracranial right vertebral artery is dominant. There is n o aneurysm, high-grade stenosis, or focal vessel cut off seen throughout the intracranial circulation . Jugular veins: Patent bilaterally. Dural sinuses: Patent. Lung apices: Emphysematous change is noted in the upper lobes. There is mild intralobular septal thic kening. Patchy nodular opacities are seen in the upper lobes and measure up to 6 mm. This is seen on image #45. Soft tissues: The visualized pharyngeal soft tissues are normal in appearance noting angiographic pha se technique. The oropharyngeal airway appears widely patent. The salivary and thyroid glands are nor mal in appearance. No cervical lymphadenopathy is seen. Skeletal structures: The skeletal structures are osteopenic. The calvarium appears intact. The cervic al spine is maintained noting mild multilevel spondylosis. No lytic or blastic lesion is identified. Orbits: The bony orbits are intact. Orbital contents are normal as visualized. Sinuses and mastoids: There is subtotal opacification of the left maxillary antrum. The remaining par anasal sinuses are clear. There is trace right mastoid effusion. The left mastoid air cells are well pneumatized. IMPRESSION: 1. There is no evidence of hemorrhage, mass effect, or acute territorial ischemia noting angiographic phase technique. The small thalamic lacunar infarct seen by MRI is not visible on CT. 2. Unremarkable CT angiogram of the brain. 3. Atherosclerotic plaque causes approximately 50% stenosis at the origin of the left internal caroti d artery. The internal carotid arteries are otherwise patent bilaterally. 4. There is moderate stenosis at the origin of the left vertebral artery. 5. Emphysema. 6. Intralobular septal thickening is noted in the upper lobes and there are foci of patchy nodularity which measure up to 6 mm. These findings may on an inflammatory basis or related to congestive failu re. Clinical correlation will be required. Follow-up with a dedicated chest CT in 3 months time is re commended for reassessment of these nodules and for full assessment of the thorax. ACT 112: Negative or not required by law. Electronically signed by: Abraham Marquez M.D. 07/16/2021 5:29 PM
[2021-07-16] MEDS ORDERED: NITROGLYCERIN SL 0.4 MG/TAB TAB SL PRN (18:14)
[2021-07-16] MEDS ORDERED: CARBOHYDRATES FOR HYPOGLYCEMIA PO PRN (18:14)
[2021-07-16] MEDS ORDERED: PHARMACIST DISCHARGE MED REC CONSULT PRN (18:14)
[2021-07-16] MEDS ORDERED: GLUCOSE 10 TABS/TUBE PO PRN (18:14)
[2021-07-16] MEDS ORDERED: DEXTROSE 50% 50 ML SYRINGE IV PRN (18:14)
[2021-07-16] MEDS ORDERED: GLUCAGON FOR INJ 1 MG VIAL SQ PRN (18:14)
[2021-07-16] MEDS ORDERED: GLUCOSE 40% GEL 15 GM TUBE PO PRN (18:14)
[2021-07-16] MEDS ORDERED: cefTRIAXone SODIUM 2,000 MG in DEXTROSE 5% 50 ML IV SCH (19:00)
[2021-07-16] MEDS: INSULIN ASPART 100 UNITS/ML 3 ML PEN SC SCH ×2 (19:29→21:01)
[2021-07-16] MEDS: GABAPENTIN 300 MG CAP PO SCH (20:50)
[2021-07-16] MEDS ORDERED: METOPROLOL TARTRATE 50 MG TAB PO SCH (21:00)
[2021-07-17 06:13] LABS: Basophils # (auto) 0.03 K/uL (0-0.2); Basophils % (auto) 0.4 %; Eosinophils % (auto) 1.4 %; Hemoglobin 14.4 g/dL (12.0-16.0); Immature Granulocytes # (auto) 0.03 K/uL (0.00-0.02); Immature Granulocytes % (auto) 0.4 %; Lymphocytes # (auto) 2.94 K/uL (1.2-3.4); Lymphocytes % (auto) 42.2 %; Mean Corpuscular Hemoglobin 31.1 pg (25-34); Mean Corpuscular Hgb Conc 34.3 g/dL (32-36); Mean Corpuscular Volume 90.7 fL (80-100); Mean Platelet Volume 9.8 fL (7.4-10.4); Monocytes # (auto) 0.38 K/uL (0.11-0.59); Monocytes % (auto) 5.5 %; Neutrophils # (auto) 3.48 K/uL (1.4-6.5); Neutrophils % (auto) 50.1 %; Platelet Count 182 K/uL (130-400); RDW Standard Deviation 46.9 fL (36.4-46.3); Red Blood Count 4.63 M/uL (4.2-5.4); White Blood Count 6.96 K/uL (4.8-10.8)
[2021-07-17] MEDS ORDERED: LEVOTHYROXINE SODIUM 50 MCG TABLET PO SCH (06:30)
[2021-07-17 06:43] LABS: BUN Creatinine Ratio 17.1 (10-20); Calcium 9.3 mg/dl (8.5-10.1); Est GFR (African American) 82.8 ml/min; Est GFR (Non-African American) 71.4 ml/min; Magnesium 2.2 mg/dl (1.8-2.4); Potassium 3.8 mmol/L (3.5-5.1)
[2021-07-17] MEDS: INSULIN ASPART 100 UNITS/ML 3 ML PEN SC SCH ×2 (07:52→12:59)
[2021-07-17] MEDS: GABAPENTIN 300 MG CAP PO SCH (08:35)
[2021-07-17] MEDS ORDERED: ATORVASTATIN 40 MG TAB PO SCH (09:00)
[2021-07-17] MEDS ORDERED: METOPROLOL TARTRATE 100 MG TAB PO SCH (09:00)
[2021-07-17] MEDS ORDERED: CITALOPRAM 40 MG TAB PO SCH (09:00)
[2021-07-17] MEDS ORDERED: CLOPIDOGREL BISULFATE 75 MG TAB PO SCH (09:00)
[2021-07-17] MEDS ORDERED: ASPIRIN 81 MG ECTAB PO SCH (09:00)
--- NOTE | 2021-07-17 09:11 | Neurology Consultation ---
Date of Consultation July 17, 2021 Assessment & Plan (1) Right thalamic stroke: Acute ischemic right thalamic stroke presenting with relative left hemisensory deficit, face arm and leg. Stroke risk factors for this patient include type 2 diabetes mellitus, hypertension, dyslipidemia, and tobacco abuse. She is already taking dual antiplatelet therapy, low-dose aspirin and clopidogrel. Patient should continue with these medications. Follow-up with results of echocardiogram. Would also recommend 30-day mobile cardiac outpatient telemetry. Continue atorvastatin although will consider increasing the dosage. This patient will need additional counseling regarding the importance of cigare tte smoking cessation. Ongoing tobacco abuse (1-1/2 packs/day) remains the greatest modifiable risk factor for this patient at this point in time. Again, she is already on dual antiplatelet therapy and a statin. Previous hemoglobin A1c's have been in the 6's which would suggest that this condition has traditionally been reasonably well controlled. Follow-up with results of recent hemoglobin A1c. No further immediate recommendations. History of Present Illness Reason for Consultation: Lacunar infarct Requesting Physician: ESTRELLITA Dasilva Attending Physician: Phoenix King History of Present Illness The patient is a 60-year-old female with a chief complaint of numbness and tingling affecting the left face, arm, and leg. Symptoms were noted yesterday morning at around 9:30 although she does report experiencing intermittent similar symptoms to the left upper extremity for the past few weeks that she had been attributing to a pinched nerve in her neck. She had presented to the emergency department outside of the window for TPA. It looks like she had a brain MRI completed prior to CT angiography. The brain MRI revealed an acute to subacute subcentimeter lacunar infarct within the right thalamus as well as mild microangiopathic disease. Subsequent CT angiography of the head and neck were completed as well. Angiogram of the brain unremarkable. There is a 50% stenosis at the origin of the left internal carotid artery. Past medical history is notable for type 2 diabetes mellitus, hypertension, hyperlipidemia, coronary artery disease, on dual antiplatelet therapy, and tobacco abuse, 1-1/2 packs/day. This morning, the patient continues to report some mild numbness affecting the left side of her body, face arm and leg. She also reports some subtle difficulty with fine motor control of the left hand, grasping, fine finger movements etc. although nothing the grossly impacts her functioning. She denies headache, vision disturbance, dysphagia, vertigo, or gross motor weakness or difficulty with balance or walking. Allergies Allergy/AdvReac Type Severity Reaction Status Date / Time amlodipine AdvReac Intermediate Diarrhea Verified 07/16/21 15:05 niacin AdvReac Intermediate Gastrointestinal Verified 07/16/21 15:05 Upset Home Medications Medication Instructions Recorded Confirmed Type aspirin 81 mg tablet,delayed 81 mg PO QAM 01/05/19 07/16/21 History release (Aspir-Low) citalopram 40 mg tablet 40 mg PO QAM 01/05/19 07/16/21 History clopidogrel 75 mg tablet 75 mg PO QAM 01/05/19 07/16/21 History metformin 500 mg tablet,extended 1,000 mg PO PM 01/05/19 07/16/21 History release 24 hr metoprolol tartrate 100 mg tablet 50 mg PO PM 01/05/19 07/16/21 History metoprolol tartrate 100 mg tablet 100 mg PO QAM 01/05/19 07/16/21 History isosorbide mononitrate 60 mg 60 mg PO QPM tab 07/15/19 07/16/21 History tablet,extended release 24 hr isosorbide mononitrate 60 mg 120 mg PO QAM #270 tab 07/15/19 07/16/21 History tablet,extended release 24 hr nitroglycerin 0.4 mg sublingual 0.4 mg SL Q5M PRN tab 07/15/19 07/16/21 History tablet gabapentin 300 mg capsule 300 mg PO BID cap 08/06/19 07/16/21 History levothyroxine 50 mcg capsule 50 mcg PO DAILY 08/06/19 07/16/21 History potassium chloride 20 mEq 10 meq PO DAILY tab 04/28/20 07/16/21 History tablet,extended release atorvastatin 40 mg tablet 40 mg PO DAILY #90 tab 12/27/20 07/16/21 Rx glipizide 2.5 mg tablet, extended 2.5 mg PO DAILY #90 tab 04/20/21 07/16/21 Rx release 24 hr losartan 50 mg tablet 50 mg PO QAM #90 tab 04/20/21 07/16/21 Rx Patient History Medical History Acute diastolic (congestive) heart failure Anxiety CAD (coronary artery disease) CHF (congestive heart failure) Diabetes mellitus, type 2 Dyslipidemia HTN (hypertension) Hypothyroid Kidney stones Left nephrolithiasis Morbid obesity PVD (peripheral vascular disease) Right nephrolithiasis Sleep apnea CPAP Surgical History History of back surgery Hx of cardiac catheterization x 10 with stenting multiples Hx of section Hx of cystoscopy for renal calculi removal and stenting Social History Smoking Status: Current every day smoker Tobacco Type: Cigarettes Cigarettes Per Day: 30; Second Hand Exposure: No; Hx Alcohol Use: No Hx Substance Use: No Preferred Language: Algerian Communication Ability: Effective Visual Impairment: No Limitations Car Pilot Required: No Beliefs That Will Affect Care: Mosque Current Living Situation: Alone Current Living Situation Comment: lives with sister Feels Safe at Home: Yes Assistive Devices: CPAP Review of Systems Constitutional: no fever and no chills Eyes: no blind spots and no diplopia Ear, Nose, Mouth, Throat: no ear pain and no hearing loss Respiratory: no cough and no dyspnea Cardiovascular: no chest pain and no palpitations Gastrointestinal: no constipation and no diarrhea/loose stools Genitourinary: no urinary urgency and no urinary incontinence Musculoskeletal: no muscle weakness and no muscle atrophy Integumentary: no rash and no lesions Neurologic: as per Subjective / HPI Psychiatric: no behavioral changes, no depression, no abnormal sleep pattern and no anxiety Hematologic / Lymphatic: no easy bruising and no lymphadenopathy Exam (Neuro) Constitutional: well developed and well nourished; no acute distress Eyes: normal visual alvarado by confrontation, PERRL, normal accommodation and EOM intact bilaterally; no fundoscopic abnormality, no nystagmus and no papilledema Cardiovascular: Vessels: normal carotid upstroke; no carotid bruit Neurologic: Oriented to:: Person, Place and Time Memory: Short Term Intact and Remote Intact Attention: Span Intact and Concentration Intact Language: Naming Objects and Repeating Phrases Speech Fluency: negative Dysarthria Speech Aphasia: negative Aphasia Fund of Knowledge: Current Events, Past History and Vocabulary Cranial Nerves: Normal II (Visual alvarado full to confrontation, visual acuity normal), III, IV, (Pupils equal round reactive to light and accommodation, eye movements normal), VII (There is no facial droop or weakness), VIII (Hearing intact), IX, X (Palate elevates to midline), XI (Shoulder shrug intact) and XII (Tongue protrudes to midline); Abnorm V (Relatively diminished facial sensation for the left upper, mid, and lower face.) Motor Strength: Normal Lower Extremities and Normal Upper Extremities; negative Pronator Drift Motor Tone: Normal Lower Extremities and Normal Upper Extremities Muscle Bulk/Involuntary Movements: No Involuntary Movements; negative Muscle Atrophy Sensation: Vibration Intact and Proprioception Intact; negative Light Touch Intact or Pain/Temperature Intact Coordination: Normal; negative Limited Balance, Dysdiadochokinesia, Finger-Nose Abnormal or Heel-Miller Abnormal Deep Tendon Reflexes: Rt Triceps: 1+, Lt Triceps: 1+, Rt Biceps: 1+, Lt Biceps: 1+, Rt Brachioradialis: 1+, Lt Brachioradialis: 1+, Rt Patellar: 1+, Lt Patellar: 1+, Rt Ankle: 1+ and Lt Ankle: 1+ Special Tests: negative Babinski Present Gait: Normal Station and Gait Details: Patient has a mild left hemisensory deficit, primarily to light touch and temperature, face arm and leg. Also exhibits subtle difficulty with fine finger movements to the left hand only. Results & Data ([facility]) Vital Signs (Past 12 Hours) Vital Signs Temp Pulse Pulse Resp BP Pulse Ox 07/17/21 07:47 36.7 C 54 L 16 183/71 H 95 07/17/21 07:21 54 L 07/17/21 03:18 36.5 C 63 18 172/80 H 96 07/17/21 01:39 60 23 94 07/16/21 23:15 36.5 C 58 L 18 180/83 H 95 07/16/21 22:20 56 L Laboratory Results WBC 6.96, hemoglobin 14.4, hematocrit 42.0, platelet count 182, sodium 135, potassium 3.8, BUN 15, creatinine 0.87, glucose 80, AST 12, ALT 18, troponin less than 0.015, triglycerides 173, cholesterol 165, LDL 94, VLDL 35, HDL 36, TSH 3.260, Lyme disease IgG and IgM negative, SARS-CoV-2 PCR negative Diagnostic Findings MRI of the brain, CT of the head, and CT angiogram of the head and neck are as described in the history of present illness. I reviewed the images as well as the radiologist's interpretation of these tests and agree. An electrocardiogram reveals sinus bradycardia, 56 bpm. Coding Level of Care Code 23828 Initial Inpt Care Lvl 3 Diagnoses Right thalamic stroke I63.9
[2021-07-17] MEDS ORDERED: LOSARTAN POTASSIUM 50 MG TAB PO SCH (11:00)
[2021-07-17] MEDS ORDERED: STROKE PATIENT DISCHARGE STA (15:16)
--- NOTE | 2021-07-17 15:30 | Discharge Summary ---
Date of Service July 17, 2021 Admission HPI Per Admitting Provider 60 YOF with past medical history of: CAD(sent to her RCA), NV, DM, HTN, HLD, Recurrent nephrolithiasis and COPD, cervical stenosis, current smoker. Initial NV was in 2000 where she received bare metal stent to her RCA with restenosis 6 months later received multiple stents complicated by VF arrest, reported 10 stents to RCA, she has stable angina with exertion. Patient comes to the [facility] as she awoke this morning ~0930 with her left side of her face feeling numb and tingly. She did not notice any other changes as she has chronic numbness and tingling to her left arm related to her cervical stenosis, which she is currently in the process of getting surgical evaluation. Patient also has had increase in her baseline vertigo over the past few months. In the EMD she had routine labs drawn to include Lyme, and a brain MRI completed. Her MRI revealed a 6 mm focus of restricted diffusion identified in the right thalamus, no other hemorrhage or focal lesions noted. Hospitalist team was notified for admission. Patient will be admitted and continued stroke work-up and management. She was not a tPA candidate secondary to time of presentation. She will get a CTA of her neck and head to evaluate for vascular etiology, neurology consult and ECHO. Patient continues on her ASA and Plavix and states that she has not missed any doses and she took these this morning. She did not tolerate change of ator vastatin to higher dose rosuvastatin to get to goal of 70 so remains on atorvastatin. She follows Dr. Robbins for her cardiac history. Patient has received her COVID vaccine. Principal Diagnosis Acute to subacute lacunar infarct to the right thalmus Discharge Exam General: awake, alert, no apparent distress Head: Normocephalic, atraumatic ENT: PERRL, EOMI, no pharyngeal exudate, mucous membranes moist Neuro: AAO x 3, speech clear and appropriate, strength intact bilaterally 5/5, decreased sensation to left cheek, chin, arm, and lower leg on the medial aspect at knee, no pronator drift, no overshoot with finger to nose, no ataxia, no difficulty reading or writing. Chest: equal rise and fall of the chest, no accessory muscle use, no heaves or thrills, scattered rhonchi, on room air, Cardiac: Regular rate and rhythm, telemetry reviewed- NSR, skin warm dry, cap refill <3 seconds, peripheral pulses +2 no JVD, no murmur, no edema GI: NABS x 4 quadrants, soft, nontender to palpation, no rebound, guarding or tenderness : Spontaneously voiding, no pain, no CVA tenderness, Extremities: Normal inspection, no peripheral edema or erythema, calfs nontender to palpation Psych: Normal mood and affect Skin: no rash or erythema Discharge Data Allergies Allergy/AdvReac Type Severity Reaction Status Date / Time amlodipine AdvReac Intermediate Diarrhea Verified 07/16/21 15:05 niacin AdvReac Intermediate Gastrointestinal Verified 07/16/21 15:05 Upset Consultations 07/16/21 15:32 ED Decision to Admit Stat 07/16/21 18:14 Consult Neurology Routine Ordered Studies 07/16/21 13:54 MR brain wo con Stat 07/16/21 15:35 CT angio head w con Urgent CT angio neck with con Urgent 07/17/21 15:41 CT head/brain wo con Routine Hospital Course (1) Infarction of right thalamus: Acute to subacute lacunar infarct to the right thalamus - not tPA candidate secondary to time - NIHSS-1 - Continue ASA and Plavix - Continue atorvastatin 40mg - CTA of the head and neck pending - allowed permissive HTN: holding her home meds. These will be restarted as an outpatient. - Neurology consulted- appreciate assistance Patient needs to quit smoking. Patient was counselled, she states she has patches of nicotine at home and will try. She will also discuss with her doctor. - ECHO was reviewed. - PT/OT consult (2) Vertigo: when sitting up in the morning and lying down at night symptoms are worse - does have meclizine PRN but does not use it often (3) Diabetes mellitus: Type II HGB a1c in morning - transition to aspart sliding scale: CF 20, 0 carb coverage for now goal <180 - can adjust as needed (4) CAD (coronary artery disease): Severe CAD with RCA stents and LAD disease - as above- minimal exertion for rest of admission - allow permissive HTN as cardiac symptoms allow- NTG PRN - Continue asa/Plavix/statin (5) Smoker: Not on therapy at home - continues to smoke 1.5 packs per day - does not want nicotine patch at this time (6) Hypothyroid: Continue Synthroid 50mcg daily (7) Dyslipidemia: Continue with atorvastatin as above, per HPI - lipid panel in the morning (8) HTN (hypertension): as above permissive HTN as allows - restart home regime if needed/tomorrow Total Time Total Time Spent Total Time Spent (In Minutes): 32 Discharge Plan Discharge Items Patient Disposition: Home - Self-Care Reason For Visit: LACUNAR STROKE Discharge Diagnosis: Lacunar stroke Activity: Resume your previous activity Non-emergency contact: Primary Care Provider Call non-emergency contact if: you have any medication questions Follow-up/Referrals: Prieto Barrera [Primary Care Provider] - Diet: Regular Addtl Attending Provider Instructions: Hold Metformin for another day. Restart Isosorbide mononitrate tomorrow. Risk Factors for Stroke: You can reduce your chances of stroke by working with your medical provider to adopt a healthy lifestyle. Some specific ways to lower your chance of stroke are: * If you are a smoker, now is the time to stop smoking cigarettes * If you are diabetic, improve the control of your blood sugars * Avoid excessive amounts of alcohol * Control high blood pressure * Lose weight if you are overweight * Be sure to lead an active lifestyle * Eat a healthy diet low in salt, cholesterol and fat You should know about other risk factors for stroke that you are unable to control. These include: * Age 55 years or older * Male gender * Certain racial groups: , or / * Family History of Stroke, Mini stroke or Heart Attack * Sickle Cell Disease Follow Up: It is important for you to keep your follow up appointments with your medical provider. Who to Call and When: Medical Emergencies: Call 911 immediately if you experience any of the following warning signs and symptoms of Stroke: * Sudden numbness or weakness of the face, arm or leg, especially on one side of the body * Sudden confusion, trouble speaking or understanding * Sudden trouble seeing in one or both eyes * Sudden trouble walking, dizziness, loss of balance or coordination * Sudden severe headache with no cause Do not delay calling 911 if you experience any warning signs or symptoms of a stroke. Delay in seeking medical attention may affect what treatments can be given to you. . Pending Studies at Discharge: No Stand-Alone Forms: My [employer] Dot, Smoking Cessation Medications and DC Order Prescriptions: Continued atorvastatin 40 mg tablet 40 mg PO DAILY Qty: 90 RF: 3 glipizide 2.5 mg tablet extended release 24hr 2.5 mg PO DAILY Qty: 90 RF: 3 losartan 50 mg tablet 50 mg PO QAM Qty: 90 RF: 3 isosorbide mononitrate 60 mg tablet extended release 24 hr 120 mg PO QAM Qty: 270 RF: 0 nitroglycerin 0.4 mg tablet, sublingual 0.4 mg SL Q5M PRN (Reason: chest pain) RF: 0 levothyroxine 50 mcg capsule 50 mcg PO DAILY RF: 0 potassium chloride 20 mEq tablet extended release 10 meq PO DAILY RF: 0 citalopram 40 mg tablet 40 mg PO QAM RF: 0 metoprolol tartrate 100 mg tablet 50 mg PO PM RF: 0 metoprolol tartrate 100 mg tablet 100 mg PO QAM RF: 0 clopidogrel 75 mg tablet 75 mg PO QAM RF: 0 aspirin [Aspir-Low] 81 mg Tablet,Delayed Release (Dr/Ec) 81 mg PO QAM RF: 0 metformin 500 mg tablet extended release 24 hr 1,000 mg PO PM RF: 0 isosorbide mononitrate 60 mg tablet extended release 24 hr 60 mg PO QPM RF: 0 gabapentin 300 mg capsule 300 mg PO BID RF: 0 Discharge Orders: Discharge Order (Routine); Ordered 07/17/21 Ordered By: Phoenix King Admission Data Admit Date/Time: 07/16/21 16:00 Attending Provider: Phoenix King Admit Provider: Ponce Vaughan Primary Care Provider: Prieto Barrera Other Providers: Ponce Vaughan ; Josef Malagon Other Interventions: Discharge Summary Assessment (RN) Last Done: 07/17/21 15:24 Coding Level of Care Code D/C DAY MANAGEMENT >30 MINS Diagnoses Infarction of right thalamus I63.9 Vertigo R42 Diabetes mellitus E11.9 CAD (coronary artery disease) I25.10 Smoker F17.200 Hypothyroid E03.9 Dyslipidemia E78.5 HTN (hypertension) I10 Time Spent (min) 32
--- NOTE | 2021-07-17 17:58 | XCELERA ---
[id number]
--- NOTE | 2021-07-17 22:43 | Electrocardiogram Report ---
Test Reason : Blood Pressure : / mmHG Vent. Rate : 056 BPM Atrial Rate : 056 BPM P-R Int : 174 ms QRS Dur : 072 ms QT Int : 482 ms P-R-T Axes : 062 079 111 degrees QTc Int : 465 ms Sinus bradycardia Cannot rule out Anterior infarct , age undetermined T wave abnormality, consider lateral ischemia Abnormal ECG When compared with ECG of 05-JAN-2019 13:28, T wave inversion now evident in Lateral leads Confirmed by Benjie Mercado ([id number]) on 07/17/2021 10:42:47 PM Referred By: Confirmed By:Benjie Mercado
[2021-07-18 08:15] LABS: Estimated Average Glucose 131 mg/dl; Hemoglobin A1C 6.2 % (4.5-5.6)
== END 2021-07-17 16:18 | disposition home or self-care (01) ==
LOC: 2N 13:13 → ED 13:13 → SUATTDRO 16:00 → 2N 17:54

== ENCOUNTER 2022-10-09 08:21 | Inpatient (IN) ==
--- NOTE | 2022-09-15 11:55 | PAT Medication Instructions ---
Medication Instructions Date of Service September 15, 2022 Home Medications Medication Instructions Recorded losartan 100 mg tablet 100 mg PO QAM #90 tabs 11/29/21 potassium chloride 10 mEq 10 meq PO QAM #90 tabs 01/16/22 tablet,extended release Flutter Valve #1 ea 02/21/22 glipizide 2.5 mg tablet, extended 2.5 mg PO QAM #90 tabs 03/06/22 release 24 hr atorvastatin 40 mg tablet (Lipitor) 40 mg PO QPM #90 tabs 04/18/22 hydralazine 25 mg tablet 25 mg PO BID #180 tabs 05/29/22 albuterol sulfate 90 mcg/actuation 2 puff inhalation Q6H PRN 08/03/22 aerosol inhaler Shortness Of Breath Or Wheezing #18 grams ezetimibe 10 mg tablet (Zetia) 10 mg PO DAILY #90 tabs 08/25/22 aspirin 81 mg tablet,delayed release (Aspir-Low) 81 mg PO QAM citalopram 40 mg tablet (Celexa) 40 mg PO QAM metformin 500 mg tablet,extended release 24 hr 1,000 mg PO PM metoprolol tartrate 100 mg tablet 50 mg PO PM metoprolol tartrate 100 mg tablet 100 mg PO QAM isosorbide mononitrate 60 mg tablet,extended release 24 hr 60 mg PO QPM isosorbide mononitrate 60 mg tablet,extended release 24 hr 120 mg PO QAM nitroglycerin 0.4 mg sublingual tablet 0.4 mg sublingual Q5M PRN gabapentin 300 mg capsule 300 mg PO BID levothyroxine 50 mcg capsule 50 mcg PO QAM losartan 100 mg tablet 100 mg PO QAM potassium chloride 10 mEq tablet,extended release 10 meq PO QAM Flutter Valve #1 ea glipizide 2.5 mg tablet, extended release 24 hr 2.5 mg PO QAM atorvastatin 40 mg tablet (Lipitor) 40 mg PO QPM hydralazine 25 mg tablet 25 mg PO BID oxycodone 10 mg tablet 10 mg PO BID PRN albuterol sulfate 90 mcg/actuation aerosol inhaler 2 puff inhalation Q6H PRN ezetimibe 10 mg tablet (Zetia) 10 mg PO DAILY Continue as directed nitroglycerin 0.4 mg sublingual tablet 0.4 mg sublingual Q5M PRN(if needed) ezetimibe 10 mg tablet (Zetia) 10 mg PO DAILY ASK your prescriber and surgeon aspirin 81 mg tablet,delayed release (Aspir-Low) 81 mg PO QAM DO NOT take the morning of surgery losartan 100 mg tablet 100 mg PO QAM potassium chloride 10 mEq tablet,extended release 10 meq PO QAM glipizide 2.5 mg tablet, extended release 24 hr 2.5 mg PO QAM Take morning of surgery With a small sip of water, OTHERWISE NOTHING TO EAT OR DRINK AFTER MIDNIGHT: citalopram 40 mg tablet (Celexa) 40 mg PO QAM metoprolol tartrate 100 mg tablet 100 mg PO QAM isosorbide mononitrate 60 mg tablet,extended release 24 hr 120 mg PO QAM gabapentin 300 mg capsule 300 mg PO BID levothyroxine 50 mcg capsule 50 mcg PO QAM hydralazine 25 mg tablet 25 mg PO BID oxycodone 10 mg tablet 10 mg PO BID PRN(if needed) albuterol sulfate 90 mcg/actuation aerosol inhaler 2 puff inhalation Q6H PRN(use if needed; please bring with you to hospital day of surgery if possible) Take evening before surgery metformin 500 mg tablet,extended release 24 hr 1,000 mg PO PM metoprolol tartrate 100 mg tablet 50 mg PO PM isosorbide mononitrate 60 mg tablet,extended release 24 hr 60 mg PO QPM gabapentin 300 mg capsule 300 mg PO BID atorvastatin 40 mg tablet (Lipitor) 40 mg PO QPM hydralazine 25 mg tablet 25 mg PO BID oxycodone 10 mg tablet 10 mg PO BID PRN(if needed) albuterol sulfate 90 mcg/actuation aerosol inhaler 2 puff inhalation Q6H PRN(if needed) Other Notes If you have any questions please call us at [phone] or [phone] or [phone] or [phone]
--- NOTE | 2022-09-21 12:03 | Anesthesiology Consultation ---
Date of Service September 21, 2022 Assessment & Plan (1) Encounter for pre-operative examination: - COVID screening: Per assessment on 09/21: No known COVID-19 positive contacts or current COVID-19 related symptoms. Travel screen negative. Patient vaccinated. At surgeon discretion if preop Covid testing being done. - S/P EBUS (03/09/22): Grade 1 view, Glidescope#4, ETT 8. Per post-op anesthesia progress note, "LMA was requested for procedure, after discussion with the surgeon of the potential for inability to ventilate sufficiently, we proceeded with LMA. Shortly after starting the procedure, ventilation was insufficient and the decision was made to intubate. At this point, ventilation was extremely difficult and oxygen saturations briefly dropped to the 50s until an endotracheal tube was able to be secured urgently with glidescope. 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 I had given Spiriva to the patient but she was not able to tolerate it as it made her cough a lot.. I gave the patient samples of Trelegy. If she benefits from it I will prescribe her one.. Continue with as needed.. Patient does have significant mosaicism appreciated on the CAT scan. She is a smoker, possibility of bronchiolitis obliterans is there. Patient does not have any autoimmune features there is no autoimmune disease in the family. Continue to monitor.. Mucinex-DM along with flutter valve to help with chest congestion.. PFT 01/23/2022: Mild restrictive lung disease, no obstructive lung dysfunction, insignificant bronchodilator response, mild decrease in TLC, mild decrease in DLCO.. 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 Largest being in the left lower lobe 2 cm x 1.4 centimeters. (new compared to CT abdomen 01/2019).. CT- guided biopsy left lower lobe nodule 02/17/22: Non-small cell carcinoma compatible with squamous cell.. S/p SBRT.. Continue with surveillance CAT scan. They are being ordered by cancer care.. CT chest 07/11/2022ersonally reviewed: Centrilobular emphysema appreciated bilaterally.. Diffuse mosaicism appreciated bilaterally upper and lower lobes.. Left lower lobe perifissural 1.5 x 1.1 cm nodularity(previously 2 cm x 1.4 cm),right upper lobe 6 mm pulmonary nodule.. Mild mediastinal and bilateral hilar lymphadenopathy unchanged.. Patient also has a 6 mm right upper lobe pulmonary nodule.. This nodule needs to be monitored as well.. Patient states that she is compliant with her CPAP.. There is no absolute contraindication from pulmonary perspective for patient to undergo surgery.. Would recommend 6-8 mL/kg of tidal volume. CPAP post extubation.. I did recommend the patient to stop smoking at least 10 days prior to the procedure" - Patient acceptable risk for surgery pending surgeon-ordered cardiology preop evaluation ([facility], appt 09/27). Chart Review Chart Review: Patient seen in Pre Admission Testing History Surgery Operation Date: 10/09/22 09:55 Proposed Procedures p C5-C7 Anterior Cervical Discectomy and Fusion, with C6 Corpectomy, Spinal Cord Monitoring - Tariq Felipe, Height/Weight Height: 5 ft 1 in Weight: 90.4 kg Allergies Allergy/AdvReac Type Severity Reaction Status Date / Time amlodipine AdvReac Intermediate Diarrhea Verified 09/15/22 10:16 niacin AdvReac Intermediate Gastrointestinal Verified 09/15/22 10:16 Upset Medications Home Medications Medication Instructions Recorded Confirmed Last Taken aspirin 81 mg tablet,delayed 81 mg PO QAM 01/05/19 09/15/22 03/08/22 08:00 release (Aspir-Low) citalopram 40 mg tablet (Celexa) 40 mg PO QAM 01/05/19 09/15/22 03/09/22 09:00 metformin 500 mg tablet,extended 1,000 mg PO PM 01/05/19 09/15/22 03/08/22 18:00 release 24 hr metoprolol tartrate 100 mg tablet 50 mg PO PM 01/05/19 09/15/22 03/08/22 18:00 metoprolol tartrate 100 mg tablet 100 mg PO QAM 01/05/19 09/15/22 03/09/22 09:00 isosorbide mononitrate 60 mg 60 mg PO QPM 07/15/19 09/15/22 03/08/22 19:00 tablet,extended release 24 hr isosorbide mononitrate 60 mg 120 mg PO QAM #270 tabs 07/15/19 09/15/22 03/09/22 09:00 tablet,extended release 24 hr nitroglycerin 0.4 mg sublingual 0.4 mg sublingual Q5M PRN chest 07/15/19 09/15/22 Unknown tablet pain gabapentin 300 mg capsule 300 mg PO BID 08/06/19 09/15/22 03/09/22 09:00 levothyroxine 50 mcg capsule 50 mcg PO QAM 08/06/19 09/15/22 03/09/22 08:00 losartan 100 mg tablet 100 mg PO QAM #90 tabs 11/29/21 09/15/22 03/08/22 09:00 potassium chloride 10 mEq 10 meq PO QAM #90 tabs 01/16/22 09/15/22 03/08/22 09:00 tablet,extended release Flutter Valve #1 ea 02/21/22 08/02/22 Unknown glipizide 2.5 mg tablet, extended 2.5 mg PO QAM #90 tabs 03/06/22 09/15/22 03/08/22 08:00 release 24 hr atorvastatin 40 mg tablet (Lipitor) 40 mg PO QPM #90 tabs 04/18/22 09/15/22 Unknown hydralazine 25 mg tablet 25 mg PO BID #180 tabs 05/29/22 09/15/22 Unknown oxycodone 10 mg tablet 10 mg PO BID PRN Pain 07/17/22 09/15/22 Unknown albuterol sulfate 90 mcg/actuation 2 puff inhalation Q6H PRN 08/03/22 09/15/22 Unknown aerosol inhaler Shortness Of Breath Or Wheezing #18 grams ezetimibe 10 mg tablet (Zetia) 10 mg PO DAILY #90 tabs 08/25/22 09/15/22 Unknown Past Medical History Medical History Adrenal mass "stable 3.3 cm left adrenal nodule. This favors a benign adenoma given the stability" per 06/[address] Anxiety and depression CAD (coronary artery disease) s/p multiple stents (> 10), [place]s [place] [facility] -Initial [place] in 2000 (underwent PCI with BMS to RCA)- had restenosis six months later- underwent repeat attempt PCI that was complicated by VF arrest -Pt again treated with multiple stents to RCA (developed recurrent restenosis multiple times- at some point - treated with brachytherapy and recurrent stenting) -Total of at least 10 stents deployed in RCA -Documented to only have mild to moderate LAD, LCx disease Carotid artery stenosis 50% stenosis of left ICA per records CHF (congestive heart failure) Chronic obstructive pulmonary disease Diabetes mellitus, type 2 Dyslipidemia HTN (hypertension) Hypothyroid Malignant neoplasm of lower lobe, left bronchus or lung February 2022 s/p radiation Myocardial Infarction 2000 Proteinuria Follows with [facility]- DKD or idiopathic nodular glomerulosclerosis PVD (peripheral vascular disease) Sleep apnea CPAP (compliant) Stroke 06/2021, unable to use TPA secondary to time, residual Left arm/LLE + toes numbness Exercise / Class Metabolic Activity III < 4 Walking/Shop/Light housework Past Family History Family History Sister Family history of diabetes mellitus Cervical cancer Mother Family history of diabetes mellitus Brother Family history of diabetes mellitus Grandmother (Maternal) Family history of diabetes mellitus Grandmother (Paternal) Family history of diabetes mellitus Father No problems noted. Aunt Breast cancer Son No problems noted. Other No family history of adverse response to anesthesia Past Surgical History Surgical History (Updated 09/21/22 @ 14:08 by Alejandra Souza) History of back surgery Lumbar fusion (subsequent hardware removal surgery, screw remains) History of bronchoscopy EBUS (03/09/22): Grade 1 view, Glidescope#4, ETT 8. Per post-op anesthesia progress note, "LMA was requested for procedure, after discussion with the surgeon of the potential for inability to ventilate sufficiently, we proceeded with LMA. Shortly after starting the procedure, ventilation was insufficient and the decision was made to intubate. At this point, ventilation was extremely difficult and oxygen saturations briefly dropped to the 50s until an endotracheal tube was able to be secured urgently with glidescope. The patient was quite stable from a cardiopulmonary standpoint and neurologically intact in recovery room." History of lithotripsy History of lung biopsy Interventional Radiology Dr. Jose Harper at [facility] Hx of cardiac catheterization x10 with multiple stents Hx of section x1 Hx of cystoscopy for renal calculi removal and stenting. 02/06/2019: LMA#4. Small oral opening noted. No postop issues per anesthesia progress note. 01/07/2019: grade 2 view, glidescope #3, ETT#7.0. No postop issues per anesthesia progress note. Past Anesthesia History No Family Hx of Anesthesia Complications and Other EBUS (03/09/22): Grade 1 view, Glidescope#4, ETT 8. Per post-op anesthesia progress note, "LMA was requested for procedure, after discussion with the surgeon of the potential for inability to ventilate sufficiently, we proceeded with LMA. Shortly after starting the procedure, ventilation was insufficient and the decision was made to intubate. At this point, ventilation was extremely difficult and oxygen saturations briefly dropped to the 50s until an endotracheal tube was able to be secured urgently with glidescope. The patient was quite stable from a cardiopulmonary standpoint and neurologically intact in recovery room." History of PONV No Hx of PONV and Hx of Motion Sickness (Remote hx vertigo) Social History Smoking Status: Heavy tobacco smoker tobacco type: cigarettes Smoking cigarettes per day: 20 cigs/day Do You Dip or Chew Tobacco: No Hx Alcohol Use: Yes Alcohol type: hard liquor alcohol intake frequency: a few times a month Hx Substance Use: Yes substance use type: marijuana (Most recent use several months ago) Review of Systems Patient denies chest pain, shortness of breath, fever, chills, cough, wheezing, palpitations. Physical Exam Vital Signs VITALS BP 145/67 P 83 TEMP SP02 97%RA RESP 20 PHYSICAL Full cervical extension range of motion. Full TMJ range of motion. TMD 3 finger breaths Mallampati Score 3 Dentition: upper full denture, lower partial Lungs: clear throughout to auscultation Cardiac: regular rate and rhythm, no murmurs noted Spine: normal Carotid arteries: negative bruit Extremities: no edema, finger clubbing Short, thick neck Lab Results Anesthesia Preop Results Results Anesthesia Widget: WBC 7.23 K/ul (4.8-10.8) 09/21/22 Hgb 11.9 g/dl (12.0-16.0) L 09/21/22 Hct 35.4 % (34.1-44.9) 09/21/22 Plt 168 K/uL (130-400) 09/21/22 Na 135 mmol/L (136-145) L 09/21/22 K 4.6 mmol/L (3.5-5.1) 09/21/22 Cl 104 mmol/L (98-107) 09/21/22 CO2 23 mmol/L (21-32) 09/21/22 BUN 16 mg/dl (6-23) 09/21/22 Creat 1.12 mg/dl (0.6-1.2) 09/21/22 Glucose Level 77 mg/dl (70-99(Fasting)) 09/21/22 PT 10.9 Seconds (9.0-12.0) 09/21/22 PTT 29.4 Seconds (21.0-31.0) 09/21/22 INR 1.0 (0.9-1.1) 09/21/22 HA1c 5.8 % (4.5-5.6) H 09/21/22 Urine Color Yellow 09/21/22 Urine Appearance Clear (Clear) 09/21/22 Urine pH 5.5 (4.5-7.5) 09/21/22 Urine Specific Goehner 1.013 (1.000-1.030) 09/21/22 Urine Protein 1+ (Negative) H 09/21/22 Urine Glucose (UA) Negative (Negative) 09/21/22 Urine Ketones Negative (Negative) 09/21/22 Urine Blood Negative (Negative) 09/21/22 Urine Nitrite Negative (Negative) 09/21/22 Urine Bilirubin Negative (Negative) 09/21/22 Urine Urobilinogen Negative (Negative) 09/21/22 Urine Leukocyte Esterase Negative (Negative) 09/21/22 Urine WBC (Auto) 1-5 /hpf (0-5) 09/21/22 Urine RBC (Auto) 0-4 /hpf (0-4) 09/21/22 Urine Hyaline Casts (Auto) 0 /lpf (0-5) 09/21/22 Urine Epithelial Cells (Auto) >30 /lpf (0-5) H 09/21/22 Urine Bacteria (Auto) Negative (Negative) 09/21/22 Blood Type O Positive 09/21/22 Antibody Screen NEGATIVE 09/21/22 Testing Electrocardiogram Date: 01/09/22 Normal sinus rhythm at 60 bpm. Rightward axis. No significant change compared to 07/16/2021 per drop board man comparison. Echocardiogram Date: 07/17/21 EF 60 to 65%. No regional motion abnormality. Moderate concentric LVH. Moderate mitral annular calcification. Type I diastolic dysfunction. No significant valvular disease. No significant change compared to prior study 01/06/2019 per report. Pulmonary Function Test Date: 01/23/22 No obstruction. Insignificant bronchodilator response. Mild decrease in TLC. Mild restrictive lung disease. Other Testing Chest CT (07/11/22) Decrease in size in the irregular left lower lobe nodule which currently measures 1.5 x 1.1 cm. Stable 6 mm nodule within the right upper lobe. Interstitial thickening groundglass densities persist. This favors chronic interstitial change. No change in the mild mediastinal and bilateral hilar lymphadenopathy. Hepatic steatosis. Emphysema. COVID-19 Risk Screen Screening Information COVID-19 Screen Date: 09/21/22 Exposure 21 Days Family/Household +COVID Last 21 Days: No Exposure 10 Days Any COVID Exposure Last 10 Days: No Symptoms Last 10 Days Experienced COVID Sx Last 10 Days: No + COVID 0-90 Days COVID + in Last 0-90 Days: No
[~2022-10-09 08:21] MED LIST changes: +ACETAMINOPHEN 500 MG TAB PO SCH; -ASPI-461 PO; -ATOR10TA82 PO; -CITA40TA4 PO; -CLOP1TAB5 PO; +CeleBREX 200 MG CAP PO SCH; -GABA-113 PO; +GABAPENTIN 600 MG DOSE PO SCH; -GADAVIST IV PRN; -GLIP-197 PO; -ISOS60TA25 PO; -LOSA1TAB PO; +LR 15ML/HR IV SCH; -METO100T14 PO; +MIDAZOLAM HCL 1 MG/ML 2ML VIAL ONE; -NTRGSL/4 UT; -POTA10CA28 PO; -[UNRECOGNIZED DRUG - REMARK] PO; +ceFAZolin 2000MG 2,000 MG/15 ML SYR IV SCH; +fentaNYL citrate 100 MCG/2 ML VIAL ONE
[2022-10-09] MEDS ORDERED: LIDOCAINE 2% MPF LOCAL 5 ML VIAL INFIL ONE (08:42)
[2022-10-09] MEDS ORDERED: PROPOFOL IV EMULSION 10 MG/ML 20 ML VIAL IV ONE (08:42)
[2022-10-09] MEDS ORDERED: ePHEDrine sulfate 50 MG/ML SYR ONE ×2 (08:42→10:31)
[2022-10-09] MEDS ORDERED: ONDANSETRON INJ 2 MG/ML 2 ML VIAL ONE (08:42)
[2022-10-09] MEDS ORDERED: DEXAMETHASONE SOD INJ 4 MG/ML VIAL ONE (08:42)
[2022-10-09] MEDS ORDERED: LARYING-O-JET KIT (LTA) ONE (08:42)
[2022-10-09] MEDS ORDERED: ROCURONIUM BROMIDE 10 MG/ML 5 ML VIAL IV ONE ×4 (08:42→10:50)
[2022-10-09] MEDS ORDERED: PHENYLEPHRINE 100MCG/ML 5ML SYR ONE (08:42)
[2022-10-09] MEDS ORDERED: ONDANSETRON INJ 2 MG/ML 2 ML VIAL IV PRN ×2 (09:25→13:48)
[2022-10-09] MEDS ORDERED: ePHEDrine sulfate 50 MG/ML AMP IV PRN (09:25)
[2022-10-09] MEDS ORDERED: ALBUT/IPRATROP 3MG/0.5MG NEB 3 ML VIAL INH PRN (09:25)
[2022-10-09] MEDS ORDERED: ATROPINE SULFATE 0.1 MG/ML 10ML SYR IV PRN (09:25)
[2022-10-09] MEDS ORDERED: MoRPHine SULFATE 10 MG/ML CARP/VIAL IV PRN (09:25)
[2022-10-09] MEDS ORDERED: MEPERIDINE HCL 25 MG/ML CARP/VIAL IV PRN (09:25)
[2022-10-09] MEDS ORDERED: ALBUT/IPRATROP 3MG/0.5MG NEB 3 ML VIAL NEB STA (09:26)
--- NOTE | 2022-10-09 09:31 | History & Physical Bridge Note ---
Date of Service October 09, 2022 History & Physical Bridge Note I have examined the patient, reviewed the History & Physical and in the interval since the performance of the History & Physical I have noted the following changes of clinical significance: no changes noted
--- NOTE | 2022-10-09 09:33 | History & Physical Report ---
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 Allergies Allergy/AdvReac Type Severity Reaction Status Date / Time amlodipine AdvReac Intermediate Diarrhea Verified 09/29/22 12:48 niacin AdvReac Intermediate Gastrointestinal Verified 09/29/22 12:48 Upset Home Medications Medication Instructions Recorded Confirmed Type aspirin 81 mg tablet,delayed 81 mg PO QAM 01/05/19 10/09/22 History release (Aspir-Low) citalopram 40 mg tablet (Celexa) 40 mg PO QAM 01/05/19 10/09/22 History metformin 500 mg tablet,extended 1,000 mg PO PM 01/05/19 10/09/22 History release 24 hr metoprolol tartrate 100 mg tablet 50 mg PO PM 01/05/19 10/09/22 History metoprolol tartrate 100 mg tablet 100 mg PO QAM 01/05/19 10/09/22 History isosorbide mononitrate 60 mg 60 mg PO QPM 07/15/19 10/09/22 History tablet,extended release 24 hr isosorbide mononitrate 60 mg 120 mg PO QAM #270 tabs 07/15/19 10/09/22 History tablet,extended release 24 hr nitroglycerin 0.4 mg sublingual 0.4 mg sublingual Q5M PRN chest 07/15/19 10/09/22 History tablet pain gabapentin 300 mg capsule 300 mg PO BID 08/06/19 10/09/22 History levothyroxine 50 mcg capsule 50 mcg PO QAM 08/06/19 10/09/22 History potassium chloride 10 mEq 10 meq PO QAM #90 tabs 01/16/22 10/09/22 Rx tablet,extended release Flutter Valve #1 ea 02/21/22 09/29/22 Rx glipizide 2.5 mg tablet, extended 2.5 mg PO QAM #90 tabs 03/06/22 10/09/22 Rx release 24 hr atorvastatin 40 mg tablet (Lipitor) 40 mg PO QPM #90 tabs 04/18/22 10/09/22 Rx hydralazine 25 mg tablet 25 mg PO BID #180 tabs 05/29/22 10/09/22 Rx oxycodone 10 mg tablet 10 mg PO BID PRN Pain 07/17/22 10/09/22 History albuterol sulfate 90 mcg/actuation 2 puff inhalation Q6H PRN 08/03/22 10/09/22 Rx aerosol inhaler Shortness Of Breath Or Wheezing #18 grams losartan 100 mg tablet 100 mg PO QAM #90 tabs 10/09/22 Rx Past Med/Surg History Medical History (Updated 10/09/22 @ 09:33 by Tariq Felipe, ) Adrenal mass "stable 3.3 cm left adrenal nodule. This favors a benign adenoma given the stability" per 06/[address] Anxiety and depression CAD (coronary artery disease) s/p multiple stents (> 10), [facility] -Initial [place] in 2000 (underwent PCI with BMS to RCA)- had restenosis six months later- underwent repeat attempt PCI that was complicated by VF arrest -Pt again treated with multiple stents to RCA (developed recurrent restenosis multiple times- at some point - treated with brachytherapy and recurrent stenting) -Total of at least 10 stents deployed in RCA -Documented to only have mild to moderate LAD, LCx disease Carotid artery stenosis 50% stenosis of left ICA per records CHF (congestive heart failure) Chronic obstructive pulmonary disease Diabetes mellitus, type 2 Dyslipidemia HTN (hypertension) Hypothyroid Malignant neoplasm of lower lobe, left bronchus or lung February 2022 s/p radiation Myocardial Infarction 2000 Proteinuria Follows [facility]- DKD or idiopathic nodular glomerulosclerosis PVD (peripheral vascular disease) Sleep apnea CPAP (compliant) Stroke 06/2021, unable to use TPA secondary to time, residual Left arm/LLE + toes numbness Surgical History (Updated 09/21/22 @ 14:08 by Alejandra Souza) History of back surgery Lumbar fusion (subsequent hardware removal surgery, screw remains) History of bronchoscopy EBUS (03/09/22): Grade 1 view, Glidescope#4, ETT 8. Per post-op anesthesia progress note, "LMA was requested for procedure, after discussion with the surgeon of the potential for inability to ventilate sufficiently, we proceeded with LMA. Shortly after starting the procedure, ventilation was insufficient and the decision was made to intubate. At this point, ventilation was extremely difficult and oxygen saturations briefly dropped to the 50s until an endotracheal tube was able to be secured urgently with glidescope. The patient was quite stable from a cardiopulmonary standpoint and neurologically intact in recovery room." History of lithotripsy History of lung biopsy Interventional Radiology Dr. Jose Harper at [facility] Hx of cardiac catheterization x10 with multiple stents Hx of section x1 Hx of cystoscopy for renal calculi removal and stenting. 02/06/2019: LMA#4. Small oral opening noted. No postop issues per anesthesia progress note. 01/07/2019: grade 2 view, glidescope #3, ETT#7.0. No postop issues per anesthesia progress note. Family History Sister Family history of diabetes mellitus Cervical cancer Mother Family history of diabetes mellitus Brother Family history of diabetes mellitus Grandmother (Maternal) Family history of diabetes mellitus Grandmother (Paternal) Family history of diabetes mellitus Father No problems noted. Aunt Breast cancer Son No problems noted. Other No family history of adverse response to anesthesia Social History Smoking Status: Heavy tobacco smoker Tobacco Type: Cigarettes packs per day: 2; Cigarettes Per Day: 30; Second Hand Exposure: Yes (FRIEND RODRIGO SMOKES); Do You Dip or Chew Tobacco: No; Hx Alcohol Use: Yes Alcohol type: hard liquor Alcohol Intake Frequency: 2-4 x/Month Hx Substance Use: No Preferred Language: Kyrgyz Communication Ability: Effective Visual Impairment: No Limitations Hearing Ability: Normal Phy Therapist Required: No Beliefs That Will Affect Care: None Current Living Situation: Alone Current Living Situation Comment: current occupational status: disabled How many Children do You have: 1 Feels Safe at Home: Yes Safety Concerns: Feels Safe At This Time caffeine: Yes (diet pepsi) during the past year weight has: remained stable Dental Care, Regularly: No Assistive Devices: CPAP, Denture - Upper, Denture - Lower and Glasses Physical Exam Physical Exam: Patient is alert and oriented Heart regular rhythm Lungs clear Results & Data Results & Data ([facility]) Vital Signs (Past 12 Hours) Vital Signs Temp Pulse Resp BP Pulse Ox O2 Del Method 10/09/22 08:49 36.5 C 55 L 20 151/72 H 95 Room Air
[2022-10-09] MEDS ORDERED: ceFAZolin 330 MG/ML 1 GM VIAL ONE (09:39)
[2022-10-09] MEDS ORDERED: fentaNYL citrate 100 MCG/2 ML VIAL ONE (10:34)
[2022-10-09] MEDS ORDERED: FLOSEAL HEMOSTATIC MATRIX 10ML TOP ONE (10:37)
[2022-10-09] MEDS ORDERED: NEOSTIGMINE METHYLSULFATE 1 MG/ML 10ML VIAL ONE (10:50)
[2022-10-09] MEDS ORDERED: GLYCOPYRROLATE 0.2 MG/ML VIAL ONE (10:50)
--- NOTE | 2022-10-09 11:37 | Operative Report ---
Post Operative Report Pre & Post Diagnosis Operation Date: 10/09/22 10:05 Pre-Op Diagnosis: Cervical spinal stenosis and myeloradiculopathy Morbid obesity Post-Op Diagnosis: Same I identified the patient and participated in the time-out.: Yes Procedure Operation Date: 10/09/22 10:05 Actual Procedures #1 anterior cervical corpectomy with bilateral foraminotomies C6. #2 anterior cervical arthrodesis C5-C7. #3 placement of peek 23 mm cage from C5-C7. #4 placement locally harvested morselized autograft combined with I factor and interbody space. #5 application of K2 M plate and screws from C5-C7. Surgeon Tariq Felipe, DO Small Animal Caretaker Nury Mojica Estimated Blood Loss 20 Findings See Below The patient is 5 foot 1 inches tall weighing over 90 kg with a BMI in excess of 37. Patient's body was did contribute to significant technical difficulty required deeper retractors at least 50% increased operative time. Specimens None Indications This is a 62-year female who presents with above-mentioned diagnosis after failing course of nonoperative care is here for surgical invention. Description of Procedure Patient was met with identified informed consent obtained. Patient was then taken to the operative suite underwent a patient placed in a supine position Rodriguez table the head Mckenzie art department head. All bony prominences well-padded eyes inspected to ensure no external pressure placed upon them. This point the anterior cervical spine was prepped and draped in a sterile fashion. The assistance of fluoroscopy identify the C6 vertebral body and a transverse incision was placed along the right anterior aspect of the cervical spine overlying this region. Blunt dissection with assistance of bipolar electrocautery was performed down to and exposing the anterior cervical spine from C5-C7. Self-retaining retractors placed. Then formed a complete discectomy of C5-C6 out to the uncovertebral joints bilaterally followed by C6- C7. [place] distracting pins were then placed in C5 and C7 to distract across the C6 vertebral body. Complete corpectomy was then performed including removal of all posterior annular fibers longitudinal ligament bilateral foraminotomies performed. Endplates burred to subcortical any bone and a 23 mm peek cage filled with I factor and locally harvested morselized autograft was tapped into position. Distracting apparatus was removed and a K2 M plate and screws applied with the assistance of fluoroscopy from C5-C7. Incision was then copiously irrigated explored to ensure no damage to surrounding structures or remaining bleeding. 10 round KATRIN drain inserted. The incision was then closed with 2 Vicryl in a fashion of 4 Monocryl for fascial closure. Steri-Strip Steri-Strips placed. Patient waken taken to PACU in stable condition. Please note spinal cord monitoring was utilized at the procedure no changes noted. Lastly Nury Mojica was present at the entire procedure and while the patient positioning complex portions of the surgery and fascial closure. I attest to the content of the Intraoperative Record and any orders documented therein. Any exceptions are noted below.
[2022-10-09] MEDS: fentaNYL citrate 100 MCG/2 ML VIAL IV PRN ×2 (12:15→12:24)
--- NOTE | 2022-10-09 12:46 | Fluoroscopy Report ---
FL cervical 2-3V CLINICAL HISTORY: C5-C7 ACDF COMPARISON STUDY: None. FLUOROSCOPY TIME: 17 seconds. FINDINGS: 3 fluoroscopic spot images of the cervical spine demonstrate anterior cervical discectomy a nd fusion from C5 through C7 with C6 corpectomy. The hardware appears intact. IMPRESSION: Fluoroscopic assistance provided for C5-C7 ACDF. ACT 112: Negative or not required by law. Electronically signed by: Angel Goins M.D. 10/09/2022 12:45 PM
--- NOTE | 2022-10-09 12:51 | Anesthesiology Progress Note ---
Date of Service October 09, 2022 Anesthesia Post Procedure Vital Signs Vital Signs: Temp Pulse Pulse Resp BP Pulse Ox O2 Del Method 10/09/22 12:35 61 15 133/58 L 94 Oxymask 10/09/22 12:25 61 12 132/72 94 Oxymask 10/09/22 12:15 62 16 153/66 H 96 Oxymask 10/09/22 12:05 62 17 197/74 H 99 Oxymask 10/09/22 11:50 62 19 162/83 H 81 L Aerosol Mask 10/09/22 11:55 62 17 174/68 H 97 Aerosol Mask 10/09/22 11:45 36.4 C L 62 19 155/63 H 82 L Oxymask 10/09/22 09:31 58 L 18 95 Room Air 10/09/22 08:49 36.5 C 55 L 20 151/72 H 95 Room Air O2 Flow Rate 10/09/22 12:35 2 10/09/22 12:25 2 10/09/22 12:15 4 10/09/22 12:05 4 10/09/22 11:50 10 10/09/22 11:55 10 10/09/22 11:45 15 10/09/22 09:31 10/09/22 08:49 Pain Intensity Neck: Pain Intensity: 3 Transfer of Care Handoff Completed per policy Notes Mental Status: alert / awake / arousable Patient Amnestic to Procedure: Yes Nausea / Vomiting: adequately controlled Pain: adequately controlled Airway Patency, RR, SpO2: stable & adequate BP & HR: stable & adequate Hydration State: stable & adequate Anesthetic Complications: no major complications apparent and see Notes below Notes: Brandon Mancilla removed prior to d/c. For PCU bed
[2022-10-09] MEDS ORDERED: ACETAMINOPHEN 1,000 MG/100 ML VIAL IV PRN (13:48)
[2022-10-09] MEDS ORDERED: PROMETHAZINE HCL 12.5 MG in SODIUM CHLORIDE 0.9% 50 ML IV PRN (13:48)
[2022-10-09] MEDS ORDERED: diphenhydrAMINE Capsule 25 MG CAP PO PRN (13:48)
[2022-10-09] MEDS ORDERED: NITROGLYCERIN SL 0.4 MG/TAB TAB SL PRN (13:48)
[2022-10-09] MEDS ORDERED: ONDANSETRON 4 MG OD TAB PO PRN (13:48)
[2022-10-09] MEDS ORDERED: FAMOTIDINE 20 MG TAB PO PRN (13:48)
[2022-10-09] MEDS ORDERED: NALOXONE HCL 0.4 MG/1 ML VIAL/CARP IV PRN (13:48)
[2022-10-09] MEDS ORDERED: ALUMINUM/MAGNESIUM SUSP 30 ML UDC PO PRN (13:48)
[2022-10-09] MEDS ORDERED: ALBUTEROL HFA 8 GM INHALER INH PRN (13:48)
[2022-10-09] MEDS ORDERED: RACEPINEPHRINE 2.25% NEBU SOLN 0.5 ML VIAL INH PRN (13:48)
[2022-10-09] MEDS ORDERED: HYDROmorphone INJ 1 MG/ML SYRINGE IV PRN (13:48)
[2022-10-09] MEDS ORDERED: oxyCODONE HCL IR 5 MG TAB (IMMEDIATE RELEASE) PO PRN (13:48)
[2022-10-09] MEDS ORDERED: PHARMACY GLYCEMIC MGMT CONSULT PRN (13:48)
[2022-10-09] MEDS ORDERED: hydrOXYzine HCl 25 MG TAB PO PRN (13:48)
[2022-10-09] MEDS ORDERED: LORazepam 0.5 MG TAB PO PRN (13:48)
[2022-10-09] MEDS ORDERED: METOCLOPRAMIDE HCL INJ 5 MG/ML 2 ML VIAL IV PRN (13:48)
[2022-10-09] MEDS ORDERED: SOD PHOSPHATE/SOD BIPHOSPHATE ENEMA 132 ML BTL PR PRN (13:48)
[2022-10-09] MEDS ORDERED: ACETAMINOPHEN 500 MG TAB PO PRN (13:48)
[2022-10-09] MEDS ORDERED: bisacodyL 10 MG SUPP PR PRN (13:48)
[2022-10-09] MEDS ORDERED: dexAMETHasone 8 MG in SYRINGE 0 ML IV PRN (13:48)
[2022-10-09] MEDS ORDERED: LORazepam 0.5 MG in SYRINGE 0 ML IV PRN (13:48)
[2022-10-09] MEDS ORDERED: MAGNESIUM HYDROXIDE SUSP 30 ML UDC PO PRN (13:48)
[2022-10-09] MEDS ORDERED: CARBOHYDRATES FOR HYPOGLYCEMIA PO PRN (14:31)
[2022-10-09] MEDS ORDERED: GLUCOSE 10 TAB/TUBE PO PRN (14:31)
[2022-10-09] MEDS ORDERED: GLUCOSE 40% GEL 15 GM TUBE PO PRN (14:31)
[2022-10-09] MEDS ORDERED: GLUCAGON FOR INJ 1 MG VIAL SQ PRN (14:31)
[2022-10-09] MEDS ORDERED: DEXTROSE 50% 50 ML SYRINGE IV PRN (14:31)
--- NOTE | 2022-10-09 14:32 | Hospitalist Consultation ---
Date of Consultation October 09, 2022 Assessment & Plan (1) Myelopathy concurrent with and due to spinal stenosis of cervical region: S/p cervical decompression DVT prophylaxis, pain control, ambulation per primary team Patient doing well postop, no acute concerns. Neurovascularly intact, left upper extremity with some numbness/tingling but greatly improved in intensity per patient postop COPD with emphysema, chronic bronchitis - PFT 01/23/2022: Mild restrictive lung disease, no obstructive lung dysfunction, insignificant bronchodilator response, mild decrease in TLC, mild decrease in DLCO FVC 1.94 L 70%, FEV1 1.5 L 70%, FEV1/FVC 78%, RV 85%, TLC 79%, RV/TLC 89%, DLCO 63% Was not able to tolerate Spiriva Recommended to continue LAMA/LABA/ICS commendation while inpatient. Patient declines this and worries she was concerned about the side effects. Refuses at this time and notes she is not taking her home Trelegy, did encourage her and discussed pathophysiology of COPD. At time of assessment she is not wheezing following a DuoNeb treatment, encourage patient to use daily inhalers to prevent wheezing which she has experienced and to continue follow-up with pulmonology. Albuterol as needed CKD Preop creatinine 1.12, estimated GFR 52 Renally dose medications required, avoid nephrotoxins Check BMP in the morning prior to resuming losartan Type II DM Hold home glipizide/metformin Glucose checks AC/at bedtime Goal BSG [id number] Switched to basal bolus while inpatient, type II DM diet Weight-based. Lantus 15 units twice daily, CF 25, CR 10 FARHAN CPAP nightly CAD with history of multiple PCI to RCA Preoperative eval able to complete more than 4 METS of activity without anginal symptoms or equivalent. 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 to quit smoking [id number] smoking history Chronic pain Acute pain control per primary team May bring in medical marijuana for pharmacy verification and self administration if desired (2) Malignant neoplasm of lower lobe, left bronchus or lung: (3) Diabetes mellitus, type 2: (4) COPD (chronic obstructive pulmonary disease): (5) Dyslipidemia: History of Present Illness Attending Physician: Tariq Felipe DO History of Present Illness Tati is a 62-year-old female with a past medical history of mixed restrictive obstructive lung disease, tobacco use, FARHAN, SCC, type II DM, hypertension, CAD who presented for cervical decompression 2/2 cervical myelopathy. She is s/p C5-C7 decompression on 10/09/2022, we are consulted for medical management of comorbidities. Preop: No leukocytosis, hemoglobin 11.9, PLT 168, sodium 135, potassium 4.6, creatinine 1.12 with estimated GFR 52 Nori is seen at the bedside postoperatively. She reports that she feels overall well. Doing well, KATRIN drain in place draining scant serosanguineous material. Patient was surprised to learn that she had a drain in place, but denies pain or acute concerns. She reports he has had chronic tingling in her left upper extremity which persists but it is greatly reduced in intensity compared to preoperatively. Denies pain. Denies fever, chills, difficulty breathing, lightheadedness, dizziness, chest pain, chest pressure. She reports that she has not been taking any COPD inhalers at home as she read the side effects online and was very concerned about these. Otherwise doing well no acute symptoms. Medical History: Reviewed Medications: Reviewed Surgical History: Reviewed Allergies: Reviewed Social History: Reviewed Code Status: Full code Allergies Allergy/AdvReac Type Severity Reaction Status Date / Time amlodipine AdvReac Intermediate Diarrhea Verified 09/29/22 12:48 niacin AdvReac Intermediate Gastrointestinal Verified 09/29/22 12:48 Upset Home Medications Medication Instructions Recorded Confirmed Type aspirin 81 mg tablet,delayed 81 mg PO QAM 01/05/19 10/09/22 History release (Aspir-Low) citalopram 40 mg tablet (Celexa) 40 mg PO QAM 01/05/19 10/09/22 History metformin 500 mg tablet,extended 1,000 mg PO PM 01/05/19 10/09/22 History release 24 hr metoprolol tartrate 100 mg tablet 50 mg PO PM 01/05/19 10/09/22 History metoprolol tartrate 100 mg tablet 100 mg PO QAM 01/05/19 10/09/22 History isosorbide mononitrate 60 mg 60 mg PO QPM 07/15/19 10/09/22 History tablet,extended release 24 hr isosorbide mononitrate 60 mg 120 mg PO QAM #270 tabs 07/15/19 10/09/22 History tablet,extended release 24 hr nitroglycerin 0.4 mg sublingual 0.4 mg sublingual Q5M PRN chest 07/15/19 10/09/22 History tablet pain gabapentin 300 mg capsule 300 mg PO BID 08/06/19 10/09/22 History levothyroxine 50 mcg capsule 50 mcg PO QAM 08/06/19 10/09/22 History potassium chloride 10 mEq 10 meq PO QAM #90 tabs 01/16/22 10/09/22 Rx tablet,extended release Flutter Valve #1 ea 02/21/22 09/29/22 Rx glipizide 2.5 mg tablet, extended 2.5 mg PO QAM #90 tabs 03/06/22 10/09/22 Rx release 24 hr atorvastatin 40 mg tablet (Lipitor) 40 mg PO QPM #90 tabs 04/18/22 10/09/22 Rx hydralazine 25 mg tablet 25 mg PO BID #180 tabs 05/29/22 10/09/22 Rx oxycodone 10 mg tablet 10 mg PO BID PRN Pain 07/17/22 10/09/22 History albuterol sulfate 90 mcg/actuation 2 puff inhalation Q6H PRN 08/03/22 10/09/22 Rx aerosol inhaler Shortness Of Breath Or Wheezing #18 grams losartan 100 mg tablet 100 mg PO QAM #90 tabs 10/09/22 Rx Patient History Medical History (Updated 10/09/22 @ 09:33 by Tariq Felipe DO) Adrenal mass "stable 3.3 cm left adrenal nodule. This favors a benign adenoma given the stability" per 06/[address] Anxiety and depression CAD (coronary artery disease) s/p multiple stents (> 10), Follows with [facility] -Initial MS in 2000 (underwent PCI with BMS to RCA)- had restenosis six months later- underwent repeat attempt PCI that was complicated by VF arrest -Pt again treated with multiple stents to RCA (developed recurrent restenosis multiple times- at some point - treated with brachytherapy and recurrent stenting) -Total of at least 10 stents deployed in RCA -Documented to only have mild to moderate LAD, LCx disease Carotid artery stenosis 50% stenosis of left ICA per records CHF (congestive heart failure) Chronic obstructive pulmonary disease Diabetes mellitus, type 2 Dyslipidemia HTN (hypertension) Hypothyroid Malignant neoplasm of lower lobe, left bronchus or lung February 2022 s/p radiation Myocardial Infarction 2000 Proteinuria Follows with [facility]- DKD or idiopathic nodular glomerulosclerosis PVD (peripheral vascular disease) Sleep apnea CPAP (compliant) Stroke 06/2021, unable to use TPA secondary to time, residual Left arm/LLE + toes numbness Surgical History (Updated 09/21/22 @ 14:08 by Alejandra Souza) History of back surgery Lumbar fusion (subsequent hardware removal surgery, screw remains) History of bronchoscopy EBUS (03/09/22): Grade 1 view, Glidescope#4, ETT 8. Per post-op anesthesia progress note, "LMA was requested for procedure, after discussion with the surgeon of the potential for inability to ventilate sufficiently, we proceeded with LMA. Shortly after starting the procedure, ventilation was insufficient and the decision was made to intubate. At this point, ventilation was extremely difficult and oxygen saturations briefly dropped to the 50s until an endotracheal tube was able to be secured urgently with glidescope. The patient was quite stable from a cardiopulmonary standpoint and neurologically intact in recovery room." History of lithotripsy History of lung biopsy Interventional Radiology Dr. Jose Harper at [facility] Hx of cardiac catheterization x10 with multiple stents Hx of section x1 Hx of cystoscopy for renal calculi removal and stenting. 02/06/2019: LMA#4. Small oral opening noted. No postop issues per anesthesia progress note. 01/07/2019: grade 2 view, glidescope #3, ETT#7.0. No postop issues per anesthesia progress note. Family History Sister Family history of diabetes mellitus Cervical cancer Mother Family history of diabetes mellitus Brother Family history of diabetes mellitus Grandmother (Maternal) Family history of diabetes mellitus Grandmother (Paternal) Family history of diabetes mellitus Father No problems noted. Aunt Breast cancer Son No problems noted. Other No family history of adverse response to anesthesia Social History Smoking Status: Heavy tobacco smoker Tobacco Type: Cigarettes packs per day: 2; Cigarettes Per Day: 30; Second Hand Exposure: Yes (FRIEND RODRIGO SMOKES); Do You Dip or Chew Tobacco: No; Hx Alcohol Use: Yes Alcohol type: hard liquor Alcohol Intake Frequency: 2-4 x/Month Hx Substance Use: No Preferred Language: [place] Communication Ability: Effective Visual Impairment: No Limitations Hearing Ability: Normal Electrical And Electronic Assembler Required: No Beliefs That Will Affect Care: None Current Living Situation: Alone Current Living Situation Comment: current occupational status: disabled How many Children do You have: 1 Feels Safe at Home: Yes Safety Concerns: Feels Safe At This Time caffeine: Yes (diet pepsi) during the past year weight has: remained stable Dental Care, Regularly: No Assistive Devices: CPAP, Denture - Upper, Denture - Lower and Glasses Review of Systems Review of Systems: All systems reviewed & are unremarkable except as noted in Subjective Physical Exam Physical Exam: General: A&Ox3. NAD. Cooperative. HEENT: Atraumatic, normocephalic. EOM intact, vision/hearing intact. Cevical collar in place. KATRIN drain serosanguinous <15cc. Pulm: CTAB A&P. -wheezes, -rales, -rhonchi. Symmetrical chest rise. No increased work of breathing. No respiratory distress. Cardiac: RRR, -mrg. Radial pulses intact and symmetrical. Abdominal: Nontender, nondistended, soft. BS present. Results & Data Results & Data ([facility]) Vital Signs (Past 12 Hours) Vital Signs Temp Pulse Pulse Resp BP Pulse Ox O2 Del Method 10/09/22 13:45 36.4 C L 63 16 128/65 95 Nasal Cannula 10/09/22 13:15 60 14 143/62 H 94 Oxymask 10/09/22 13:05 59 L 15 137/61 95 Oxymask 10/09/22 12:55 36.5 C 63 15 139/54 L 94 Oxymask 10/09/22 12:45 59 L 12 126/52 L 95 Oxymask 10/09/22 12:35 61 15 133/58 L 94 Oxymask 10/09/22 12:25 61 12 132/72 94 Oxymask 10/09/22 12:15 62 16 153/66 H 96 Oxymask 10/09/22 12:05 62 17 197/74 H 99 Oxymask 10/09/22 11:50 62 19 162/83 H 81 L Aerosol Mask 10/09/22 11:55 62 17 174/68 H 97 Aerosol Mask 10/09/22 11:45 36.4 C L 62 19 155/63 H 82 L Oxymask 10/09/22 09:31 58 L 18 95 Room Air 10/09/22 08:49 36.5 C 55 L 20 151/72 H 95 Room Air O2 Flow Rate 10/09/22 13:45 2 10/09/22 13:15 2 10/09/22 13:05 2 10/09/22 12:55 2 10/09/22 12:45 2 10/09/22 12:35 2 10/09/22 12:25 2 10/09/22 12:15 4 10/09/22 12:05 4 10/09/22 11:50 10 10/09/22 11:55 10 10/09/22 11:45 15 10/09/22 09:31 10/09/22 08:49 PG Care Time/CCT Total # of Minutes Spent Total Time Spent with Patient: Total time spent is greater than 50% in coordination of care (as documented) at patient's floor/unit and/or counseling patient: Coding Level of Care Code 96311 Inpt Consult Level 4 Diagnoses Myelopathy concurrent with and due to spinal stenosis of cervical region M48.02; G99.2 Malignant neoplasm of lower lobe, left bronchus or lung C34.32 Diabetes mellitus, type 2 E11.9 COPD (chronic obstructive pulmonary disease) J44.9 Dyslipidemia E78.5
[2022-10-09] MEDS ORDERED: LANTUS PER UNIT CHARGE SQ ONE (15:15)
--- NOTE | 2022-10-09 15:19 | Pharmacy Report ---
Pharmacy Glycemic Short Note 2 - Date of Service October 09, 2022 - Glycemic Short BSG Results (Last 24 hours): 10/09/22 10/09/22 08:41 11:48 POC Glucose 93 115 H OUTPATIENT ANTIDIABETIC REGIMEN: * Metformin 1000 mg PO qPM * Glipizide ER 2.5 mg PO qAM * HbA1c = 5.8% (09/21/22) ASSESSMENT: * 62 yo F admitted postoperatively following spinal surgery with Dr. Felipe today. Pharmacy has been consulted to assist with inpatient glycemic management. Patient is a type 2 diabetic with good outpatient control based on most recent A1c from this month. Ordered a clear liquid diet. Appears to have received 12 mg of IV Dexamethasone perioperatively. No further steroids ordered at this time. * Preop BSG was 93 mg/dL. Postop BSG was 115 mg/dL. * Expecting BSGs, especially postprandials, to be elevated for the next 24 hours secondary to Dexamethasone. * Hold outpatient meds. Give a one time dose of Lantus to cover for steroid- induced hyperglycemia. Further basal doses to be determined based on fasting BSGs. Novolog to be started based on weight/stress of 2. PLAN FOR INPATIENT GLYCEMIC CONTROL: * Hold outpatient oral diabetes medications * Basal insulin * Lantus 10 units SC x 1 * Bolus insulin * NovoLog per scale ACHS or Q6hrs while NPO * Goal Range: Low 110 mg/dL - High 140 mg/dL * Correction Factor: 25 mg/dL/unit * Nutritional / Prandial insulin per carb ratio of 1 unit per 9 grams CHO consumed
[2022-10-09] MEDS: HYDROmorphone INJ 0.5 MG/0.5 ML SYR IV PRN ×2 (17:47→22:17)
[2022-10-09] MEDS: SODIUM CHLORIDE 0.9% 1000ML 1,000 ML IV SCH (17:47)
[2022-10-09] MEDS: INSULIN ASPART PER UNIT SC SCH ×2 (18:05→20:56)
[2022-10-09] MEDS: hydrALAZINE HCL 25 MG TAB PO SCH (20:39)
[2022-10-09] MEDS: GABAPENTIN 300 MG CAP PO SCH (20:39)
[2022-10-09] MEDS ORDERED: Nursing to Pharmacy Communication SCH (20:45)
[2022-10-09] MEDS ORDERED: DOCUSATE SODIUM/SENNA 50/8.6MG TAB PO SCH (21:00)
[2022-10-09] MEDS ORDERED: ISOSORBIDE MONO EXTENDED REL 60 MG TABCR PO SCH (21:00)
[2022-10-09] MEDS ORDERED: ATORVASTATIN 40 MG TAB PO SCH (21:00)
[2022-10-09] MEDS ORDERED: METOPROLOL TARTRATE 50 MG TAB PO SCH (21:00)
[2022-10-09] MEDS: ceFAZolin 2000MG 2,000 MG/15 ML SYR IV SCH (22:17)
[2022-10-10] MEDS: SODIUM CHLORIDE 0.9% 1000ML 1,000 ML IV SCH (03:09)
[2022-10-10] MEDS: HYDROmorphone INJ 0.5 MG/0.5 ML SYR IV PRN (03:10)
[2022-10-10] MEDS: ceFAZolin 2000MG 2,000 MG/15 ML SYR IV SCH (03:16)
[2022-10-10] MEDS ORDERED: POLYETHYLENE (MIRALAX) 17 GM PACK PO SCH (06:00)
[2022-10-10] MEDS ORDERED: LEVOTHYROXINE SODIUM 50 MCG TABLET PO SCH (06:30)
[2022-10-10 06:36] LABS: Basophils # (auto) 0.01 K/uL (0-0.2); Basophils % (auto) 0.1 %; Hematocrit (blood only) 34.5 % (34.1-44.9); Hemoglobin 11.3 g/dl (12.0-16.0); Immature Granulocytes # (auto) 0.04 K/uL (0.00-0.02); Immature Granulocytes % (auto) 0.4 %; Lymphocytes # (auto) 1.17 K/uL (1.2-3.4); Lymphocytes % (auto) 12.9 %; Mean Corpuscular Hemoglobin 29.9 pg (25.0-34.0); Mean Corpuscular Hgb Conc 32.8 g/dL (32.0-36.0); Mean Corpuscular Volume 91.3 fL (80.0-100.0); Mean Platelet Volume 9.9 fL (9.4-12.3); Monocytes # (auto) 0.51 K/uL (0.24-0.82); Monocytes % (auto) 5.6 %; Neutrophils # (auto) 7.32 K/uL (1.4-6.5); Platelet Count 142 K/uL (130-400); RDW Coefficient of Variation 14.4 % (11.5-14.5); RDW Standard Deviation 48.6 fL (36.4-46.3); Red Blood Count 3.78 M/uL (3.93-5.22); White Blood Count 9.05 K/ul (4.8-10.8)
[2022-10-10 07:01] LABS: BUN Creatinine Ratio 14.4 (10-20); Calcium 9.3 mg/dl (8.5-10.1); Creatinine Clr Calc Pharmacy 52.4 ml/min; Est GFR (African American) 60.8 ml/min; Est GFR (Non-African American) 52.4 ml/min; Potassium 4.9 mmol/L (3.5-5.1)
[2022-10-10] MEDS ORDERED: glipiZIDE ER 2.5 MG TABCR PO SCH (07:30)
[2022-10-10 07:52] VITALS: O2SAT 99
[2022-10-10 08:10] VITALS: BP 176/77; TEMP 97.5
[2022-10-10] MEDS: GABAPENTIN 300 MG CAP PO SCH (08:41)
[2022-10-10] MEDS: hydrALAZINE HCL 25 MG TAB PO SCH (08:41)
[2022-10-10] MEDS: INSULIN ASPART PER UNIT SC SCH (08:43)
[2022-10-10] MEDS ORDERED: ASPIRIN 81 MG ECTAB PO SCH (09:00)
[2022-10-10] MEDS ORDERED: POTASSIUM CHLORIDE 10 MEQ TABCR PO SCH (09:00)
[2022-10-10] MEDS ORDERED: CITALOPRAM 40 MG TAB PO SCH (09:00)
[2022-10-10] MEDS ORDERED: FLUTICASONE/VILANTEROL 100/25MCG 14 PUFFS/INHALER INH SCH (09:00)
[2022-10-10] MEDS ORDERED: UMECLIDINIUM BROMIDE 62.5MCG/BLISTER 7 PUFFS/INHALER INH SCH (09:00)
[2022-10-10] MEDS ORDERED: METOPROLOL TARTRATE 100 MG TAB PO SCH (09:00)
[2022-10-10] MEDS ORDERED: ISOSORBIDE MONO EXTENDED REL 60 MG TABCR PO SCH (09:00)
--- NOTE | 2022-10-10 09:46 | Discharge Summary ---
Date of Service October 10, 2022 Admission HPI Per Admitting Provider This is a 62-year-old female who presents with markedly worsening neck and arm symptoms after failed course of nonoperative care is here for surgical invention. Admission Exam (Per Admitting) Constitutional well developed Eyes normal visual alvarado by confrontation ENMT external ear and nose normal, oropharynx normal Neck normal visual inspection Respiratory normal respiratory effort Cardiovascular Extremities: normal capillary refill Gastrointestinal (Abdomen) Inspection/Auscultation: abdomen normal to inspection Musculoskeletal Spine: + limited cervical ROM Shoulder: + limited ROM Skin no rashes, warm and dry Neurologic normal touch/pain/proprioception and moves all extremities Psychiatric A+Ox3, euthymic affect Eye Contact: good eye contact Speech: normal rate/rhythm/volume of speech Discharge Data Consultations 10/09/22 13:48 Consult Hospitalist Routine Procedures Performed Operation Date: 10/09/22 10:05 Actual Procedures p C5-C7 Anterior Cervical Discectomy and Fusion, C6 Corpectomy, Spinal Cord Monitoring(Not Applicable) - Tariq Felipe DO Hospital Course (1) Myelopathy concurrent with and due to spinal stenosis of cervical region: Discharge Instructions Patient is being discharged home on postop day 1 status post C6 corpectomy. She had an uneventful hospital course. She was placed in PCU postoperatively due to her significant cardiopulmonary status. Labs are stable. KATRIN drain output last shift was 5 cc. She is swallowing without incident. She is voiding without issue. She is up and ambulatory with the assistance of a walker. Pain is controlled.
[2022-10-10 11:18] VITALS: PULSE 74
--- NOTE | 2022-10-10 11:59 | Hospitalist Progress Note ---
Date of Service October 10, 2022 Assessment & Plan (1) Myelopathy concurrent with and due to spinal stenosis of cervical region: Plan: S/p cervical decompression, pod#1 DVT prophylaxis, pain control, ambulation per primary team Patient doing well postop, no acute concerns. Neurovascularly intact, left upper extremity with some numbness/tingling but greatly improved in intensity per patient postop - Outpatient f/u with Dr. Felipe as scheduled (2) Malignant neoplasm of lower lobe, left bronchus or lung: Plan: Post XRT No inpatient management at this time Continue outpatient surveillance arranged by CCP (3) Diabetes mellitus, type 2: Plan: Hold home glipizide/metformin Glucose checks AC/at bedtime Goal BSG [id number] Switched to basal bolus while inpatient, type II DM diet Weight-based. Lantus 15 units twice daily, CF 25, CR 10 (4) COPD (chronic obstructive pulmonary disease): Plan: - PFT 01/23/2022: Mild restrictive lung disease, no obstructive lung dysfunction, insignificant bronchodilator response, mild decrease in TLC, mild decrease in DLCO FVC 1.94 L 70%, FEV1 1.5 L 70%, FEV1/FVC 78%, RV 85%, TLC 79%, RV/TLC 89%, DLCO 63% Was not able to tolerate Spiriva Recommended to continue LAMA/LABA/ICS commendation while inpatient. Patient declines this and worries she was concerned about the side effects. Refuses at this time and notes she is not taking her home Trelegy, did encourage her and discussed pathophysiology of COPD. At time of assessment she is not wheezing following a DuoNeb treatment, encourage patient to use daily inhalers to prevent wheezing which she has experienced and to continue follow-up with pulmonology. Albuterol as needed (5) CAD (coronary artery disease): Plan: CAD with history of multiple PCI to RCA Preoperative eval able to complete more than 4 METS of activity without anginal symptoms or equivalent. Euvolemic without evidence of CHF Continue aspirin, additional DVT prophylaxis per primary Continue metoprolol Continue isosorbide Resume losartan 10/10 if creatinine normal Continue atorvastatin Patient has deferred SGLT2 therapy, continue outpatient follow-up History of thalamic CVA Statin, aspirin as noted Plan Patient is medically and hemodynamically stable from medical standpoint for discharge. No further recommendations. Thank you for allowing us to participate in the care of your patient, will sign off. Plan d/w Dr. Carrion. Admission and Anticipated Discharge Date Admission Date: October 09, 2022 Subjective Patient was seen on daily rounds this morning. She reports some L shoulder pain but notes that this has been going on even prior to her surgery. Neck pain is adequately controlled. Denies chest pain, dyspnea. Review of Systems Review of Systems: All systems reviewed and are unremarkable except as noted in HPI and below. Denies fever, chills, fatigue, headache, nasal congestion, sore throat, cough, chest pain, shortness of breath, palpitations, orthopnea, PND, abdominal pain, n/v/d, constipation, dysuria, hematuria, frequency, back pain, easy bruising or bleeding, skin lesions or rashes. Physical Exam Physical Exam: GENERAL: 62 yo Well-developed, well-nourished WF. NAD. Neck: cervical collar in place, KATRIN drain extending from surgical incision LUNGS: Clear to auscultation bilaterally. No accessory muscle use. No W/R/R. CARDIOVASCULAR: Regular rate and rhythm. ABDOMEN: Soft, non-tender and non-distended. BS normoactive x 4 quad. EXTREMITIES: No edema. Non-tender. Peripheral pulses +2/4. NEUROLOGIC: A&O x3. PSYCHIATRIC: Cooperative. Appropriate mood and affect. SKIN: Warm, dry, intact. Results & Data Results & Data ([facility]) Vital Signs (Past 12 Hours) Vital Signs Temp Pulse Pulse Pulse Resp BP Pulse Ox 10/10/22 11:15 36.4 C L 74 60 18 176/77 H 99 10/10/22 07:30 36.4 C L 56 L 18 176/77 H 97 10/10/22 07:35 60 18 99 10/10/22 03:15 85 18 94 10/10/22 02:18 36.9 C 60 12 150/67 H 94 10/10/22 01:04 70 O2 Del Method O2 Flow Rate 10/10/22 11:15 10/10/22 07:30 Nasal Cannula 2 10/10/22 07:35 Nasal Cannula 2 10/10/22 03:15 Nasal Cannula 2 10/10/22 02:18 Nasal Cannula 2 10/10/22 01:04 Laboratory Results 10/10/22 06:20 10/10/22 06:20 PG Care Time/CCT Total # of Minutes Spent Total Time Spent with Patient: Total time spent is greater than 50% in coordination of care (as documented) at patient's floor/unit and/or counseling patient: Coding Level of Care Code 21077 Subseq Hosp Care Lvl 2 Diagnoses Myelopathy concurrent with and due to spinal stenosis of cervical region M48.02; G99.2 Malignant neoplasm of lower lobe, left bronchus or lung C34.32 Diabetes mellitus, type 2 E11.9 COPD (chronic obstructive pulmonary disease) J44.9 CAD (coronary artery disease) I25.10
== END 2022-10-10 11:45 | disposition home or self-care (01) | DRG 472 ==
LOC: ASU 08:21 → 4W 11:43